=== PATIENT | female | born 1940 | race Caucasian/White ===

== ENCOUNTER 2017-02-13 20:46 | Emergency (ER) | payer MEDICARE, OTHER ==
[2017-02-13 21:59] VITALS: BP 146/68
[2017-02-13] MEDS ORDERED: Ciprofloxacin 500 MG Tab PO ONE (22:27)
[2017-02-13] MEDS ORDERED: Phenazopyridine 95 MG Tab PO ONE ×2 (22:28→22:41)
--- NOTE | 2017-02-13 22:36 | EDM.PDOC ---
[id number] UTI [id number] Time Seen by Provider: 02/13/17 22:00 Source of Information: Reports: Patient History Limitations: Reports: No limitations - History of Present Illness INITIAL COMMENTS - FREE TEXT/NARRATIVE: c/o burning with urination. Started 2 days ago. no fever or chills, Hx bladder infection in past. Has tried cranberry juice that helped some but more frequent urination and burnign worse tonight of wanting to cry. - Related Data Allergies/ADRs: Allergies Allergy/AdvReac Type Severity Reaction Status Date / Time ciprofloxacin Allergy Cannot Verified 02/13/17 22:01 Remember hydrocodone Allergy Dizziness Verified 02/13/17 22:01 sulfamethizole Allergy Rash Verified 02/13/17 22:01 sulfamethoxazole Allergy Itching Verified 02/13/17 22:01 [From Bactrim] trimethoprim [From Bactrim] Allergy Itching Verified 02/13/17 22:01 Home Meds: Home Meds Alendronate Sodium [Alendronate] 70 mg PO ASDIRECTED 07/05/14 [History] Aspirin [Ashley Chewable Aspirin] 81 mg PO DAILY 07/05/14 [History] Clopidogrel Bisulfate [Clopidogrel] 75 mg PO DAILY 07/05/14 [History] Calcium Citrate/Vitamin D3 [Calcium Citrate + D] 1 tab PO DAILY 04/10/15 [ History] Multivitamin with Minerals [Multiple Vitamin] 1 tab PO DAILY 04/10/15 [History] Pantoprazole [ProTONIX] 40 mg PO DAILY 04/10/15 [History] Celecoxib 200 mg PO DAILY 05/28/16 [History] Ondansetron [Ondansetron] 4 mg PO Q6HR PRN 07/03/16 [History] traMADol HCl [Tramadol HCl] 50 mg PO Q6HR PRN 07/03/16 [History] Past Medical History HEENT History: Reports: Hard of hearing, Impaired vision, Other (see below) Other HEENT History: wear glasses Cardiovascular History: Reports: Other (see below) Other Cardiovascular History: carotid artery disease Respiratory History: Reports: None Gastrointestinal History: Reports: GERD Genitourinary History: Reports: None TYPING CHECKER History: Reports: None Musculoskeletal History: Reports: Other (see below) Other Musculoskeletal History: Right shoulder pain Neurological History: Reports: None Psychiatric History: Reports: None Endocrine/Metabolic History: Reports: None Hematologic History: Reports: None Immunologic History: Reports: None Oncologic (Cancer) History: Reports: None Dermatologic History: Reports: None - Infectious Disease History Infectious Disease History: Reports: Measles - Past Surgical History Cardiovascular Surgical History: Reports: None GI Surgical History: Reports: None Neurological Surgical History: Reports: None Musculoskeletal Surgical History: Reports: None Social & Family History - Family History Family Medical History: Noncontributory - Tobacco Use Smoking Status *Q: Never Smoker Second Hand Smoke Exposure: No - Caffeine Use Caffeine Use: Reports: Soda, Tea - Recreational Drug Use Recreational Drug Use: No - Living Situation & Occupation Living situation: Reports: with family Occupation: retired ED ROS GENERAL - Review of Systems Review Of Systems: ROS reveals no pertinent complaints other than HPI. ED EXAM, RENAL/ - Physical Exam Exam: See Below Exam Limited By: No limitations General Appearance: alert, no apparent distress, thin Nose: normal inspection Throat/Mouth: Normal inspection Head: atraumatic Respiratory/Chest: no respiratory distress (Female) Exam: Other (suprapubic tenderness with alpation) Back Exam: normal inspection. No: CVA tenderness (L), CVA tenderness (R) Extremities: normal inspection Neurological: alert, oriented Psychiatric: normal affect Skin Exam: Warm, Dry, Intact Course - Vital Signs Last Recorded V/S: Last Vital Signs Temp 97.7 F 02/13/17 21:49 Pulse 77 02/13/17 21:49 Resp 16 02/13/17 21:49 BP 146/68 H 02/13/17 21:49 Pulse Ox 99 02/13/17 21:49 - Orders/Labs/Meds Labs: Laboratory Tests 02/13/17 Range/Units 22:05 Urine Color Light yellow (YELLOW) Urine Appearance Cloudy (CLEAR) Urine pH 7.0 (5.0-9.0) Ur Specific [place] 1.020 (1.005-1.030) Urine Protein 100 H (NEGATIVE) Urine Glucose (UA) Negative (NEGATIVE) Urine Ketones Negative (NEGATIVE) Urine Occult Blood Moderate H (NEGATIVE) Urine Nitrite Negative (NEGATIVE) Urine Bilirubin Negative (NEGATIVE) Urine Urobilinogen 0.2 (0.2-1.0) mg/dL Ur Leukocyte Esterase Moderate H (NEGATIVE) Urine RBC 10-20 H /HPF Urine WBC Packed H (0-5/HPF) /HPF Ur Epithelial Cells Moderate H /HPF Urine Bacteria Many H (0-FEW/HPF) /HPF Meds: Medications Discontinued Medications Generic Name Dose Route Start Last Admin Trade Name Emily PRN Reason Stop Dose Admin Ciprofloxacin 500 mg 02/13/17 22:27 Ciprofloxacin Hcl PO 02/13/17 22:28 ONETIME ONE Nitrofurantoin Macrocrystals 100 mg 02/14/17 22:34 Macrobid PO 02/14/17 22:35 ONETIME ONE Nitrofurantoin Macrocrystals Confirm 02/13/17 22:40 02/13/17 22:46 Macrobid Administered 02/13/17 22:41 Not Given Dose 100 mg .ROUTE .STK-MED ONE Phenazopyridine HCl 190 mg 02/13/17 22:28 02/13/17 22:45 Urinary Pain Relief PO 02/13/17 22:29 190 mg ONETIME ONE Administration Phenazopyridine HCl Confirm 02/13/17 22:41 02/13/17 22:46 Urinary Pain Relief Administered 02/13/17 22:42 Not Given Dose 190 mg .ROUTE .STK-MED ONE Departure - Departure Time of Disposition: 22:30 Disposition: Home, Self-Care 01 Condition: good Clinical Impression: UTI (urinary tract infection) Qualifiers: Urinary tract infection type: acute cystitis Hematuria presence: with hematuria Qualified Code(s): N30.01 - Acute cystitis with hematuria Instructions: Urinary Tract Infection, Adult, [id number] Forms: ED Department Discharge Additional Instructions: macrobid 100mg one twice daily for one week pyridium 190mg one every 8 hours as needed for bladder spasm fluids clinic follow up next week nsooner if worsening symptoms, dizziness fever vomiting
[2017-02-13] MEDS ORDERED: Nitrofurantoin Monohydrate/Macrocrystalline 100 MG Cap ONE (22:40)
[2017-02-13] MEDS ORDERED: Phenazopyridine 95 MG Tab ONE (22:41)
[2017-02-13] MEDS ORDERED: Nitrofurantoin Monohydrate/Macrocrystalline 100 MG Cap PO ONE (22:41)
[2017-02-14] MEDS ORDERED: Nitrofurantoin Monohydrate/Macrocrystalline 100 MG Cap PO ONE (22:34)
== END 2017-02-13 22:50 | disposition home or self-care (01) ==
LOC: DL.ED 20:46
DX: N30.01 Acute cystitis with hematuria (principal); K21.9 Gastro-esophageal reflux disease without esophagitis; Z79.82 Long term (current) use of aspirin; Z79.899 Other long term (current) drug therapy; Z88.1 Allergy status to other antibiotic agents; Z88.2 Allergy status to sulfonamides
CPT/HCPCS: 81001; 99283; A9270

== ENCOUNTER 2017-08-03 14:42 | Emergency (ER) | payer MEDICARE, OTHER ==
--- NOTE | 2017-08-03 16:51 | CT ---
Clinical history: 77-year-old female with head injury (fall). Scan technique: Volume acquisition of data unenhanced CT scan of the head and brain obtained with pat ient lying supine on the Siemens multi slice scanner [place], [place]. All data archived in the PACS system for storage, reformatting and study. Interpretation: Generalized severe but symmetric age-appropriate cerebral cortical atrophy pattern wi th underlying mirror-image normal ventricular system. Multi-infarct ischemic disease chronic and unch anged when compared to [address] scan[address] Uniformly thick bony calvarium without sign of skull fracture, underlying brain contusion or epidural /subdural hematoma. Symmetric clear pneumatization of the paranasal and mastoid sinuses. No supratentorial or posterior fossa mass lesion. Cerebellum and brainstem unremarkable. No sign of acute intracerebral/intraventricular/subarachnoid bleed. CONCLUSION: No sign of skull fracture or closed head injury. 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
--- NOTE | 2017-08-03 17:01 | CT ---
Clinical history: 77-year-old female injured in fall. Scan technique: Volume acquisition of data emergency unenhanced CT scan of the facial bones obtained with patient lying supine on the Siemens multi slice CT scanner [facility]. All data archived in the PACS system for storage, reformatting and study. Interpretation: Asymmetric infraorbital soft tissue swelling on the right. No fractures of the nasal or anterior maxillary spine, orbits, zygomatic arches or facial bones. Temp oral mandibular joints intact. Symmetric clear pneumatization of the frontal, ethmoid, left maxillary and sphenoid sinuses (mild inf lammatory mucoperiosteal thickening maxillary antrum, on the right). Nasal septum is straight midline . Nonedematous nasal turbinates. Symmetric normal dental occlusion. Note: *Dense reactive sclerosis atlantoaxial joint and significant anterolisthesis of the C5 vertebral body with associated evidence of chronic severe C5-6 disc diseas e noted incidentally on the margin of the films. CONCLUSION: No facial bone fractures. C5 anterolisthesis.
--- NOTE | 2017-08-03 17:14 | EDM.PDOC ---
ED HPI GENERAL MEDICAL PROBLEM - General Chief Complaint: Trauma Stated Complaint: FELL, HURT NOSE Time Seen by Provider: 08/03/17 14:54 Source of Information: Reports: Patient, Family, RN, RN Notes Reviewed History Limitations: Reports: No Limitations - History of Present Illness INITIAL COMMENTS - FREE TEXT/NARRATIVE: Patient presents to the ER with c/o fall/injury. She states she lost her balance and fell, trying to catch herself with her left hand, but landed on her nose. The patient was found to be on Plavix so the chart was converted to a trauma chart. The patient denies dizziness, or loc prior to the fall, denies loc after the fall. C/o pain to the left hand, ring finger, as well as her nose. Onset: Today, Sudden Onset Date: 08/03/17 - Related Data Allergies Allergy/AdvReac Type Severity Reaction Status Date / Time ciprofloxacin Allergy Cannot Verified 02/13/17 22:01 Remember hydrocodone Allergy Dizziness Verified 02/13/17 22:01 sulfamethizole Allergy Rash Verified 02/13/17 22:01 sulfamethoxazole Allergy Itching Verified 02/13/17 22:01 [From Bactrim] trimethoprim [From Bactrim] Allergy Itching Verified 02/13/17 22:01 Home Meds: Home Meds Alendronate Sodium [Alendronate] 70 mg PO ASDIRECTED 07/05/14 [History] Aspirin [Ashely Chewable Aspirin] 81 mg PO DAILY 07/05/14 [History] Clopidogrel Bisulfate [Clopidogrel] 75 mg PO DAILY 07/05/14 [History] Calcium Citrate/Vitamin D3 [Calcium Citrate + D] 1 tab PO DAILY 04/10/15 [ History] Multivitamin with Minerals [Multiple Vitamin] 1 tab PO DAILY 04/10/15 [History] Pantoprazole [ProTONIX] 40 mg PO DAILY 04/10/15 [History] Celecoxib 200 mg PO DAILY 05/28/16 [History] Ondansetron [Ondansetron] 4 mg PO Q6HR PRN 07/03/16 [History] traMADol HCl [Tramadol HCl] 50 mg PO Q6HR PRN 07/03/16 [History] Past Medical History HEENT History: Reports: Hard of Hearing, Impaired Vision, Other (See Below) Other HEENT History: wear glasses Cardiovascular History: Reports: Other (See Below) Other Cardiovascular History: carotid artery disease Respiratory History: Reports: None Gastrointestinal History: Reports: GERD Genitourinary History: Reports: None PEDIATRIC SOCIAL WORKER History: Reports: None Musculoskeletal History: Reports: Other (See Below) Other Musculoskeletal History: Right shoulder pain Neurological History: Reports: None Psychiatric History: Reports: None Endocrine/Metabolic History: Reports: None Hematologic History: Reports: None Immunologic History: Reports: None Oncologic (Cancer) History: Reports: None Dermatologic History: Reports: None - Infectious Disease History Infectious Disease History: Reports: Measles - Past Surgical History Cardiovascular Surgical History: Reports: None GI Surgical History: Reports: None Neurological Surgical History: Reports: None Musculoskeletal Surgical History: Reports: None Social & Family History - Family History Family Medical History: Noncontributory - Tobacco Use Smoking Status *Q: Never Smoker Second Hand Smoke Exposure: No - Caffeine Use Caffeine Use: Reports: Soda, Tea - Recreational Drug Use Recreational Drug Use: No - Living Situation & Occupation Living situation: Reports: with Family Occupation: Retired Review of Systems - Review of Systems Review Of Systems: ROS reveals no pertinent complaints other than HPI. ED EXAM, GENERAL - Physical Exam Exam: See Below Exam Limited By: No Limitations General Appearance: Alert, WD/WN, No Apparent Distress Eye Exam: Bilateral Eye: Normal Inspection, PERRL Ears: Normal External Exam, Hearing Grossly Normal Nose: Normal Inspection Throat/Mouth: Normal Inspection, Normal Lips, No Airway Compromise Head: Normocephalic, Facial Swelling, Facial Tenderness Neck: Normal Inspection, Supple, Non-Tender, Full Range of Motion Respiratory/Chest: No Respiratory Distress, Lungs Clear, Normal Breath Sounds, No Accessory Muscle Use, Chest Non-Tender Cardiovascular: Normal Peripheral Pulses, Regular Rate, Rhythm, No Edema, No Gallop, No JVD, No Murmur, No Rub Peripheral Pulses: 2+: Radial (L), Radial (R) GI/Abdominal: Normal Bowel Sounds, Soft, Non-Tender, No Organomegaly, No Distention, No Abnormal Bruit, No Mass (Female) Exam: Deferred Rectal (Female) Exam: Deferred Back Exam: Normal Inspection, Full Range of Motion Extremities: Other (left hand ecchymosis to the lateral dorsal side over the 5th metacarpal, as well as over the proximal 4th finger at the joint. ) Neurological: Alert, Oriented, CN II-XII Intact, Normal Cognition, Normal Gait, Normal Reflexes, No Motor/Sensory Deficits Psychiatric: Normal Affect, Normal Mood Skin Exam: Warm, Dry, Normal Color, No Rash, Other (swelling and ecchymosis over the entire nose with a small abrasion to the top of the nose between the eyes. ) Lymphatic: No Adenopathy ED TRAUMA PROCEDURES - Splinting Left Upper Extremity Splint Site: left hand Pre-Procedure NV Status: Normal Post-Procedure NV Status: Normal Splint Material: Fiberglass Applied & Form Fitted By: Provider, Nurse Provider Post-Splint Application NV Check: NV Status Normal, Good Position Complications: No Course - Radiology Interpretation Free Text/Narrative:: Head CT and Maxillofacial CT: No acute findings Left hand xray: Fracture of the 5th metacarpal and base of the proximal 4th finger. See Rad report Departure - Departure Time of Disposition: 17:09 Disposition: Home, Self-Care 01 Condition: Good Clinical Impression: Contusion of face Qualifiers: Encounter type: initial encounter Qualified Code(s): S00.83XA - Contusion of other part of head, initial encounter Fracture of left hand Qualifiers: Encounter type: initial encounter Fracture type: closed Qualified Code(s): S62.92XA - Unspecified fracture of left wrist and hand, initial encounter for closed fracture - Discharge Information Instructions: Facial or Scalp Contusion, [id number], Metacarpal Fracture, [id number] Referrals: Buzz Gonzalez MD [Primary Care Provider] - Forms: ED Department Discharge Additional Instructions: Wear splint until seen by ortho. Make an appointment with ortho tomorrow. Call [facility] at [phone]. Ask for the orthopedic clinic. Ask to make an appointment with Dr. Mendez. Tell the magazine worker that you were seen in the ER after a fall and you have fractures in your left hand that need to be looked at. Tell him it is currently splinted. Ice to the nose as tolerated. Acetaminophen for pain as directed. Follow up with your primary care facility the end of this week.
--- NOTE | 2017-08-04 09:07 | CR ---
Clinical history: 77-year-old female injured left hand in a fall. Interpretation: 3 views left hand and wrist... abnormal. Acute fractures distal diaphysis fifth metacarpal and base of the proximal phalanx fourth (ring) fing er. 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 No sign of other fracture or dislocation. Wristwatch foreign body.
== END 2017-08-03 17:45 | disposition home or self-care (01) ==
LOC: DL.ED 14:42
DX: S62.92XA Unspecified fracture of left hand, initial encounter for closed fracture (principal); S00.83XA Contusion of other part of head, initial encounter; Z88.8 Allergy status to other drugs, medicaments and biological substances; Z88.2 Allergy status to sulfonamides; Z79.82 Long term (current) use of aspirin; Z79.899 Other long term (current) drug therapy; W19.XXXA Unspecified fall, initial encounter
CPT/HCPCS: 29125; 70450; 70486; 73130-LT; 99284

== ENCOUNTER 2017-10-20 05:43 | Emergency (ER) | payer MEDICARE, OTHER ==
[2017-10-20 06:14] VITALS: BP 141/50
--- NOTE | 2017-10-20 06:24 | EDM.PDOC ---
ED HPI GENERAL MEDICAL PROBLEM - General Chief Complaint: Genitourinary Problem Stated Complaint: BLADDER INFECTION [id number] Time Seen by Provider: 10/20/17 06:15 Source of Information: Reports: Patient History Limitations: Reports: No Limitations - History of Present Illness INITIAL COMMENTS - FREE TEXT/NARRATIVE: C/O increased urinary frequency, pain urgency since yesterday. No fever or chills. Hx recurrent bladder infections Bladder Pain Score (Numeric/FACES): 4 - Related Data Allergies Allergy/AdvReac Type Severity Reaction Status Date / Time ciprofloxacin Allergy Cannot Verified 02/13/17 22:01 Remember hydrocodone Allergy Dizziness Verified 02/13/17 22:01 sulfamethizole Allergy Rash Verified 02/13/17 22:01 sulfamethoxazole Allergy Itching Verified 02/13/17 22:01 [From Bactrim] trimethoprim [From Bactrim] Allergy Itching Verified 02/13/17 22:01 Home Meds: Home Meds Alendronate Sodium [Alendronate] 70 mg PO ASDIRECTED 07/05/14 [History] Aspirin [Ashley Chewable Aspirin] 81 mg PO DAILY 07/05/14 [History] Clopidogrel Bisulfate [Clopidogrel] 75 mg PO DAILY 07/05/14 [History] Calcium Citrate/Vitamin D3 [Calcium Citrate + D] 1 tab PO DAILY 04/10/15 [ History] Multivitamin with Minerals [Multiple Vitamin] 1 tab PO DAILY 04/10/15 [History] Pantoprazole [ProTONIX] 40 mg PO DAILY 04/10/15 [History] Celecoxib 200 mg PO DAILY 05/28/16 [History] Ondansetron [Ondansetron] 4 mg PO Q6HR PRN 07/03/16 [History] traMADol HCl [Tramadol HCl] 50 mg PO Q6HR PRN 07/03/16 [History] Past Medical History HEENT History: Reports: Hard of Hearing, Impaired Vision, Other (See Below) Other HEENT History: wear glasses Cardiovascular History: Reports: Other (See Below) Other Cardiovascular History: carotid artery disease Respiratory History: Reports: None Gastrointestinal History: Reports: GERD Genitourinary History: Reports: UTI, Recurrent 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: Reports: None Musculoskeletal History: Reports: Other (See Below) Other Musculoskeletal History: Right shoulder pain Neurological History: Reports: None Psychiatric History: Reports: None Endocrine/Metabolic History: Reports: None Hematologic History: Reports: None Immunologic History: Reports: None Oncologic (Cancer) History: Reports: None Dermatologic History: Reports: None - Infectious Disease History Infectious Disease History: Reports: Measles - Past Surgical History Cardiovascular Surgical History: Reports: None GI Surgical History: Reports: None Neurological Surgical History: Reports: None Musculoskeletal Surgical History: Reports: None Social & Family History - Family History Family Medical History: Noncontributory - Tobacco Use Smoking Status *Q: Never Smoker Second Hand Smoke Exposure: No - Caffeine Use Caffeine Use: Reports: Coffee - Recreational Drug Use Recreational Drug Use: No - Living Situation & Occupation Living situation: Reports: with Family Occupation: Retired ED ROS GENERAL - Review of Systems Review Of Systems: ROS reveals no pertinent complaints other than HPI. ED EXAM, RENAL/ - Physical Exam Exam: See Below Exam Limited By: No Limitations General Appearance: Alert, No Apparent Distress Eye Exam: Bilateral Eye: EOMI Ears: Normal External Exam Nose: Normal Inspection Throat/Mouth: Normal Inspection Head: Atraumatic, Normocephalic Respiratory/Chest: No Respiratory Distress, Lungs Clear, Normal Breath Sounds Cardiovascular: Regular Rate, Rhythm GI/Abdominal: Normal Bowel Sounds Back Exam: No: CVA Tenderness (L), CVA Tenderness (R) Extremities: Normal Inspection Neurological: Alert, Oriented, CN II-XII Intact, Normal Cognition Psychiatric: Normal Affect, Normal Mood Skin Exam: Warm, Dry, Intact Course - Vital Signs Last Recorded V/S: Last Vital Signs Temp 98.7 F 10/20/17 06:06 Pulse 67 10/20/17 06:06 Resp 18 10/20/17 06:06 BP 141/50 H 10/20/17 06:06 Pulse Ox 98 10/20/17 06:06 - Orders/Labs/Meds Labs: Laboratory Tests 10/20/17 Range/Units 05:50 Urine Color Yellow (YELLOW) Urine Appearance Cloudy (CLEAR) Urine pH 6.0 (5.0-9.0) Ur Specific [place] >= 1.030 (1.005-1.030) Urine Protein >=300 H (NEGATIVE) Urine Glucose (UA) Negative (NEGATIVE) Urine Ketones Negative (NEGATIVE) Urine Occult Blood Large H (NEGATIVE) Urine Nitrite Negative (NEGATIVE) Urine Bilirubin Negative (NEGATIVE) Urine Urobilinogen 0.2 (0.2-1.0) mg/dL Ur Leukocyte Esterase Small H (NEGATIVE) Urine RBC 10-20 H /HPF Urine WBC Semi-packed H (0-5/HPF) /HPF Ur Epithelial Cells Few /HPF Urine Bacteria Moderate H (0-FEW/HPF) /HPF Urine Mucus Rare /LPF Meds: Medications Discontinued Medications Generic Name Dose Route Start Last Admin Trade Name Freq PRN Reason Stop Dose Admin Doxycycline Hyclate 100 mg 10/20/17 06:31 10/20/17 06:40 Vibramycin PO 10/20/17 06:32 100 mg ONETIME ONE Administration Departure - Departure Time of Disposition: 06:24 Disposition: Home, Self-Care 01 Condition: Fair Clinical Impression: UTI, Urinary tract infectious disease - Discharge Information Instructions: Urinary Tract Infection, Adult, [id number] Forms: ED Department Discharge Additional Instructions: fluids doxycycline 100mg one every 12 hous cor 7 days Pyridium 200mg every 8 hours as needed for urinary burning and urgency Follow up in clinic later this week
[2017-10-20] MEDS ORDERED: Doxycycline 100 MG Cap PO ONE (06:31)
== END 2017-10-20 06:43 | disposition home or self-care (01) ==
LOC: DL.ED 05:43
DX: N39.0 Urinary tract infection, site not specified (principal); Z79.899 Other long term (current) drug therapy; Z88.6 Allergy status to analgesic agent; Z88.1 Allergy status to other antibiotic agents; Z79.82 Long term (current) use of aspirin
CPT/HCPCS: 81001; 99283; A9270

== ENCOUNTER 2017-11-28 16:57 | Emergency (ER) | payer MEDICARE, OTHER ==
[2017-11-28] MEDS ORDERED: Diphtheria,Pertussis(Acell),Tetanus Vaccine 0.5 ML SDV IM ONE (17:10)
[2017-11-28] MEDS ORDERED: Lidocaine 1% with EPINEPHrine 1:100,000 20 ML MDV INJECT ONE (17:11)
--- NOTE | 2017-11-28 18:25 | EDM.PDOC ---
Scribed by Ifrah Yarbrough 11/28/17 1824 for Aniceto Carter MD ED HPI GENERAL MEDICAL PROBLEM - General Chief Complaint: Head Injury Stated Complaint: CUT ABOVE EYE [id number] Time Seen by Provider: 11/28/17 17:00 Source of Information: Reports: Patient, RN, RN Notes Reviewed History Limitations: Reports: No Limitations - History of Present Illness INITIAL COMMENTS - FREE TEXT/NARRATIVE: Arrives from home by private vehicle with complaint of ground level fall in your home sustaining a laceration to her left eyebrow when she hit her head on furniture. Denies loss of consciousness,nausea, vomiting or neck pain. Denies any other injury. Patient takes Plavix antiplatelet therapy. Last tetanus vaccine greater than 10 years ago. Onset: Today Location: Reports: Head Quality: Reports: Ache Severity: Moderate Improves with: Reports: None Worsens with: Reports: None Associated Symptoms: Reports: No Other Symptoms - Related Data Allergies Allergy/AdvReac Type Severity Reaction Status Date / Time ciprofloxacin Allergy Cannot Verified 11/28/17 17:32 Remember hydrocodone Allergy Dizziness Verified 11/28/17 17:32 sulfamethizole Allergy Rash Verified 11/28/17 17:32 sulfamethoxazole Allergy Itching Verified 11/28/17 17:32 [From Bactrim] trimethoprim [From Bactrim] Allergy Itching Verified 11/28/17 17:32 Home Meds: Home Meds Alendronate Sodium [Alendronate] 70 mg PO ASDIRECTED 07/05/14 [History] Aspirin [Ashley Chewable Aspirin] 81 mg PO DAILY 07/05/14 [History] Clopidogrel Bisulfate [Clopidogrel] 75 mg PO DAILY 07/05/14 [History] Calcium Citrate/Vitamin D3 [Calcium Citrate + D] 1 tab PO DAILY 04/10/15 [ History] Multivitamin with Minerals [Multiple Vitamin] 1 tab PO DAILY 04/10/15 [History] Pantoprazole [ProTONIX] 40 mg PO DAILY 04/10/15 [History] Celecoxib 200 mg PO DAILY 05/28/16 [History] Ondansetron [Ondansetron] 4 mg PO Q6HR PRN 07/03/16 [History] traMADol HCl [Tramadol HCl] 50 mg PO Q6HR PRN 07/03/16 [History] Past Medical History HEENT History: Reports: Hard of Hearing, Impaired Vision, Other (See Below) Other HEENT History: wear glasses Cardiovascular History: Reports: Other (See Below) Other Cardiovascular History: carotid artery disease Respiratory History: Reports: None Gastrointestinal History: Reports: GERD Genitourinary History: Reports: UTI, Recurrent 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 Musculoskeletal History: Reports: Other (See Below) Other Musculoskeletal History: Right shoulder pain Neurological History: Reports: None Psychiatric History: Reports: None Endocrine/Metabolic History: Reports: None Hematologic History: Reports: None Immunologic History: Reports: None Oncologic (Cancer) History: Reports: None Dermatologic History: Reports: None - Infectious Disease History Infectious Disease History: Reports: Measles - Past Surgical History Cardiovascular Surgical History: Reports: None GI Surgical History: Reports: None Neurological Surgical History: Reports: None Musculoskeletal Surgical History: Reports: None Social & Family History - Family History Family Medical History: Noncontributory - Tobacco Use Smoking Status *Q: Never Smoker Second Hand Smoke Exposure: No - Caffeine Use Caffeine Use: Reports: Coffee - Recreational Drug Use Recreational Drug Use: No - Living Situation & Occupation Living situation: Reports: with Family Occupation: Retired Review of Systems - Review of Systems Review Of Systems: ROS reveals no pertinent complaints other than HPI. ED EXAM, GENERAL - Physical Exam Exam: See Below Exam Limited By: No Limitations General Appearance: Alert, WD/WN, No Apparent Distress Eye Exam: Bilateral Eye: Normal Inspection Ears: Normal External Exam, Normal Canal, Hearing Grossly Normal, Normal TMs Nose: Normal Inspection, Normal Mucosa, No Blood Throat/Mouth: Normal Inspection, Normal Lips, Normal Teeth, Normal Gums, Normal Oropharynx, Normal Voice, No Airway Compromise Head: Normocephalic, Other (2cm linear lac. to depth of subcut. tissue at left lateral elbow, no active bleeding, no FB) Neck: Normal Inspection, Supple, Non-Tender, Full Range of Motion Respiratory/Chest: No Respiratory Distress, Lungs Clear, Normal Breath Sounds, No Accessory Muscle Use, Chest Non-Tender Cardiovascular: Normal Peripheral Pulses, Regular Rate, Rhythm, No Edema, No Gallop, No JVD, No Murmur, No Rub Back Exam: Normal Inspection, Full Range of Motion, NT Extremities: Normal Inspection, Normal Range of Motion, Non-Tender, Normal Capillary Refill, No Pedal Edema Neurological: Alert, Oriented, CN II-XII Intact, Normal Cognition, Normal Gait, Normal Reflexes, No Motor/Sensory Deficits Psychiatric: Normal Affect, Normal Mood ED TRAUMA PROCEDURES - Laceration/Wound Repair Left Lateral Face Lac/Wound Length In cm: 2 (left eyebrow) Appearance: Linear Distal NVT: Neuro & Vascular Intact, No Tendon Injury Anesthetic Type: Local Local Anesthesia - Lidocaine (Xylocaine): 1% with EPI Local Anesthetic Volume: 5cc Skin Prep: Chlorhexidine (Hibiciens), Saline Exploration/Debridement/Repair: Wound Explored, In a Bloodless Field, Explored to Base, Minimal Debridement, Minimally Undermined Closed With: Sutures Suture Size: 4-0 # of Sutures: 6 Suture Type: Nylon, Running Drain Placement: No Sterile Dressing Applied: Nurse Tetanus Status Addressed: Yes Complications: No Course - Vital Signs Last Recorded V/S: See paper trauma chart for VS. - Orders/Labs/Meds Orders: Active Orders 24 hr Category Date Time Status Vaccines to be Administered [RC] PER UNIT ROUTINE Care 11/28/17 17:10 Active Meds: Medications Discontinued Medications Generic Name Dose Route Start Last Admin Trade Name Freq PRN Reason Stop Dose Admin Diphtheria/Tetanus/Acell Pertussis 0.5 ml 11/28/17 17:10 11/28/17 17:52 Adacel IM 11/28/17 17:11 0.5 ml .ONCE ONE Administration Lidocaine/Epinephrine 20 ml 11/28/17 17:11 11/28/17 17:52 Xylocaine 1% With Epinephrine 1:100,000 INJECT 11/28/17 17:12 20 ml ONETIME ONE Administration - Radiology Interpretation Free Text/Narrative:: CT head: No acute findings. See rad report. Departure - Departure Time of Disposition: 18:21 Disposition: Home, Self-Care 01 Condition: Good Clinical Impression: Facial laceration Qualifiers: Encounter type: initial encounter Qualified Code(s): S01.81XA - Laceration without foreign body of other part of head, initial encounter Fall as cause of accidental injury at home as place of occurrence Qualifiers: Encounter type: initial encounter Qualified Code(s): W19.XXXA - Unspecified fall, initial encounter; Y92.009 - Unspecified place in unspecified non- institutional (private) residence as the place of occurrence of the external cause; Y92.009 - Unspecified place in unspecified non-institutional (private) residence as the place of occurrence of the external cause Traumatic hematoma of face Qualifiers: Encounter type: initial encounter Qualified Code(s): S00.83XA - Contusion of other part of head, initial encounter - Discharge Information Instructions: Facial or Scalp Contusion, [id number], Hematoma, [id number], Facial Laceration, [id number] Forms: ED Department Discharge Additional Instructions: Follow up in clinic for suture removal in 7 to 10 days. - My Orders Last 24 Hours: My Active Orders 11/28/17 17:10 Vaccines to be Administered [RC] PER UNIT ROUTINE - Assessment/Plan Last 24 Hours: My Active Orders 11/28/17 17:10 Vaccines to be Administered [RC] PER UNIT ROUTINE I have read and agree with the documentation that has been completed regarding this visit. By signing this record, I attest that the documentation was completed in my physical presence and is an accurate record of the encounter.
== END 2017-11-28 18:44 | disposition home or self-care (01) ==
LOC: DL.ED 16:57
DX: S01.112A Laceration without foreign body of left eyelid and periocular area, initial encounter (principal); K21.9 Gastro-esophageal reflux disease without esophagitis; Z79.82 Long term (current) use of aspirin; Z79.899 Other long term (current) drug therapy; Z79.02 Long term (current) use of antithrombotics/antiplatelets; Z88.1 Allergy status to other antibiotic agents; Z88.2 Allergy status to sulfonamides; Z88.5 Allergy status to narcotic agent; W01.190A Fall on same level from slipping, tripping and stumbling with subsequent striking against furniture, initial encounter; Y92.009 Unspecified place in unspecified non-institutional (private) residence as the place of occurrence of the external cause
CPT/HCPCS: 12011; 70450; 90471; 90715; 99282; 99284

== ENCOUNTER 2017-12-22 06:35 | Emergency (ER) | payer MEDICARE, OTHER ==
[2017-12-22 06:47] VITALS: BP 175/65
--- NOTE | 2017-12-22 07:38 | EDM.PDOC ---
ED HPI GENERAL MEDICAL PROBLEM - General Chief Complaint: ENT Problem Stated Complaint: BY AMBULANCE Time Seen by Provider: 12/22/17 07:15 Source of Information: Reports: Patient History Limitations: Reports: No Limitations - History of Present Illness INITIAL COMMENTS - FREE TEXT/NARRATIVE: This 77 yo female patient reports to the ED due to having a different feeling in the left side of her head this morning. The patient reports she noticed "something moving" on the left side of her face this morning which woke her up. The patient reports when she got out of bed "a long of air pushed her back into bed." The patient reports she feels like something is moving in the side of her head and face. The patient reports she fell earlier this month and got a cut above her left eye. Onset: Today, Sudden Duration: Minutes:, Improving Location: Reports: Head (left temporal), Face (left side of face) Quality: Reports: Dull Severity: Moderate Improves with: Reports: None Worsens with: Reports: None Associated Symptoms: Reports: No Other Symptoms - Related Data Allergies Allergy/AdvReac Type Severity Reaction Status Date / Time ciprofloxacin Allergy Cannot Verified 12/22/17 06:43 Remember hydrocodone Allergy Dizziness Verified 12/22/17 06:43 sulfamethizole Allergy Rash Verified 12/22/17 06:43 sulfamethoxazole Allergy Itching Verified 12/22/17 06:43 [From Bactrim] trimethoprim [From Bactrim] Allergy Itching Verified 12/22/17 06:43 Home Meds: Home Meds Alendronate Sodium [Alendronate] 70 mg PO ASDIRECTED 07/05/14 [History] Aspirin [Ashley Chewable Aspirin] 81 mg PO DAILY 07/05/14 [History] Clopidogrel Bisulfate [Clopidogrel] 75 mg PO DAILY 07/05/14 [History] Calcium Citrate/Vitamin D3 [Calcium Citrate + D] 1 tab PO DAILY 04/10/15 [ History] Multivitamin with Minerals [Multiple Vitamin] 1 tab PO DAILY 04/10/15 [History] Pantoprazole [ProTONIX] 40 mg PO DAILY 04/10/15 [History] Celecoxib 200 mg PO DAILY 05/28/16 [History] Ondansetron [Ondansetron] 4 mg PO Q6HR PRN 07/03/16 [History] traMADol HCl [Tramadol HCl] 50 mg PO Q6HR PRN 07/03/16 [History] Past Medical History HEENT History: Reports: Hard of Hearing, Impaired Vision, Other (See Below) Other HEENT History: wear glasses Cardiovascular History: Reports: Other (See Below) Other Cardiovascular History: carotid artery disease Respiratory History: Reports: None Gastrointestinal History: Reports: GERD Genitourinary History: Reports: UTI, Recurrent 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 Musculoskeletal History: Reports: Other (See Below) Other Musculoskeletal History: Right shoulder pain Neurological History: Reports: None Psychiatric History: Reports: None Endocrine/Metabolic History: Reports: None Hematologic History: Reports: None Immunologic History: Reports: None Oncologic (Cancer) History: Reports: None Dermatologic History: Reports: None - Infectious Disease History Infectious Disease History: Reports: Measles - Past Surgical History Cardiovascular Surgical History: Reports: None GI Surgical History: Reports: None Neurological Surgical History: Reports: None Musculoskeletal Surgical History: Reports: None Social & Family History - Family History Family Medical History: Noncontributory - Tobacco Use Smoking Status *Q: Never Smoker Second Hand Smoke Exposure: No - Caffeine Use Caffeine Use: Reports: None - Recreational Drug Use Recreational Drug Use: No - Living Situation & Occupation Living situation: Reports: with Family Occupation: Retired ED ROS GENERAL - Review of Systems Review Of Systems: ROS reveals no pertinent complaints other than HPI. ED EXAM, DIZZINESS - Physical Exam Exam: See Below Exam Limited By: No Limitations General Appearance: Alert, Moderate Distress Eye Exam: Bilateral Eye: EOMI, Normal Inspection, PERRL Ears: Normal External Exam, Normal Canal, Hearing Grossly Normal, Normal TMs Nose: Normal Inspection, Normal Mucosa, No Blood Throat/Mouth: Normal Inspection, Normal Lips, Normal Teeth, Normal Gums, Normal Oropharynx, Normal Voice, No Airway Compromise Head Exam: Other (healing wound above left eye) Vertigo: short duration Neck: Normal Inspection, Supple, Non-Tender, Full Range of Motion Respiratory/Chest: No Respiratory Distress, Lungs Clear, Normal Breath Sounds, No Accessory Muscle Use, Chest Non-Tender Cardiovascular: Normal Peripheral Pulses, Regular Rate, Rhythm, No Edema, No Gallop, No JVD, No Murmur, No Rub GI/Abdominal: Normal Bowel Sounds, Soft, Non-Tender, No Organomegaly, No Distention, No Abnormal Bruit, No Mass (Female) Exam: Deferred Rectal (Female) Exam: Deferred Neurological: Alert, Normal Mood/Affect, Normal Dorsiflexion, CN II-XII Intact, Normal Plantar Flexion, Normal Gait, Normal Reflexes, No Motor/Sensory Deficits , Oriented x 3 Back Exam: Normal Inspection, Full Range of Motion, NT Extremities: Normal Inspection, Normal Range of Motion, Non-Tender, No Pedal Edema, Normal Capillary Refill Psychiatric: Normal Affect, Anxious Skin Exam: Warm, Dry, Intact, Normal Color, No Rash Course - Vital Signs Last Recorded V/S: Last Vital Signs Temp 36.3 C 12/22/17 06:44 Pulse 76 12/22/17 06:44 Resp 16 12/22/17 06:44 BP 175/65 H 12/22/17 06:44 Pulse Ox 99 12/22/17 06:44 - Orders/Labs/Meds Orders: Active Orders 24 hr Category Date Time Status EKG Documentation Completion [RC] URGENT Care 12/22/17 07:10 Active Head wo Cont [CT] Urgent Exams 12/22/17 07:21 Taken Labs: Laboratory Tests 12/22/17 12/22/17 12/22/17 Range/Units 06:44 07:18 07:18 WBC 7.3 (5.0-10.0) 10^3/uL RBC 4.03 L (4.2-5.4) 10^6/uL Hgb 12.2 (12.0-16.0) g/dL Hct 38.6 (37.0-47.0) % MCV 95.8 (80-100) fL MCH 30.3 (27.0-34.0) pg MCHC 31.6 L (33.0-35.0) g/dL Plt Count 231 (150-450) 10^3/uL Neut % (Auto) 71.2 (42.2-75.2) % Lymph % (Auto) 14.7 L (20.5-50.1) % [place] % (Auto) 8.4 H (2-8) % Eos % (Auto) 4.9 H (1.0-3.0) % Baso % (Auto) 0.8 (0.0-1.0) % Sodium 141 (135-145) mmol/L Potassium 3.8 (3.6-5.0) mmol/L Chloride 108 (101-111) mmol/L Carbon Dioxide 25.0 (21.0-31.0) mmol/L Anion Gap 11.8 BUN 26 H (7-18) mg/dL Creatinine 0.7 (0.6-1.3) mg/dL Est Cr Clr Drug Dosing 51.54 mL/min Estimated GFR (MDRD) > 60 BUN/Creatinine Ratio 37.14 Glucose 100 (74-105) mg/dL Calcium 8.6 (8.4-10.2) mg/dl Total Bilirubin 1.0 (0.2-1.0) mg/dL AST 28 (10-42) IU/L ALT 18 (10-60) IU/L Alkaline Phosphatase 72 (42-121) IU/L Troponin I 0.04 H* (0.00-0.02) ng/ml Total Protein 7.2 (6.7-8.2) g/dl Albumin 4.1 (3.2-5.5) g/dl Globulin 3.1 Albumin/Globulin Ratio 1.32 Urine Color Yellow (YELLOW) Urine Appearance Slightly cloudy (CLEAR) Urine pH 7.0 (5.0-9.0) Ur Specific [place] 1.010 (1.005-1.030) Urine Protein Negative (NEGATIVE) Urine Glucose (UA) Negative (NEGATIVE) Urine Ketones Negative (NEGATIVE) Urine Occult Blood Moderate H (NEGATIVE) Urine Nitrite Negative (NEGATIVE) Urine Bilirubin Negative (NEGATIVE) Urine Urobilinogen 0.2 (0.2-1.0) mg/dL Ur Leukocyte Esterase Trace H (NEGATIVE) Urine RBC 0-5 /HPF Urine WBC 40-50 H (0-5/HPF) /HPF Ur Epithelial Cells Few /HPF Amorphous Sediment Few (0/HPF) /HPF Urine Bacteria Moderate H (0-FEW/HPF) /HPF Urine Mucus Rare /LPF Meds: Medications Discontinued Medications Generic Name Dose Route Start Last Admin Trade Name Freq PRN Reason Stop Dose Admin Meclizine HCl 12.5 mg 12/22/17 08:00 Antivert PO 12/22/17 08:01 ONETIME ONE Departure - Departure Time of Disposition: 08:07 Disposition: Home, Self-Care 01 Condition: Fair Clinical Impression: UTI (urinary tract infection) Qualifiers: Urinary tract infection type: acute cystitis Hematuria presence: with hematuria Qualified Code(s): N30.01 - Acute cystitis with hematuria BPPV (benign paroxysmal positional vertigo) Qualifiers: Laterality: left Qualified Code(s): H81.12 - Benign paroxysmal vertigo, left ear - Discharge Information Instructions: Benign Positional Vertigo, Urinary Tract Infection, Adult, Easy- to-Read Forms: ED Department Discharge Care Plan Goals: The patient was advised of the examination, lab, EKG and CT results during the visit. The patient was given an oral dose of Antivert while in the ED. The patient was discharged with a script for Keflex (500 mg) to take 1 by mouth 3 times per day for 7 days and Meclizine (12.5 mg) #10 to take 1 by mouth up to 3 times per day as needed. If the patient has any additional symptoms or concerns , the patient should follow-up with her primary care facility or return to the emergency department. - My Orders Last 24 Hours: My Active Orders 12/22/17 07:10 EKG Documentation Completion [RC] URGENT 12/22/17 07:21 Head wo Cont [CT] Urgent - Assessment/Plan Last 24 Hours: My Active Orders 12/22/17 07:10 EKG Documentation Completion [RC] URGENT 12/22/17 07:21 Head wo Cont [CT] Urgent
[2017-12-22 07:45] LABS: CHLORIDE,CL 108 mmol/L (101-111); SODIUM,NA 141 mmol/L (135-145)
[2017-12-22] MEDS: Meclizine 12.5 MG Tab PO ONE (08:03)
== END 2017-12-22 08:32 | disposition home or self-care (01) ==
LOC: DL.ED 06:35
DX: H81.12 Benign paroxysmal vertigo, left ear (principal); N30.01 Acute cystitis with hematuria; Z88.1 Allergy status to other antibiotic agents; Z88.5 Allergy status to narcotic agent; Z88.8 Allergy status to other drugs, medicaments and biological substances; Z79.82 Long term (current) use of aspirin; Z79.899 Other long term (current) drug therapy
CPT/HCPCS: 36415; 70450; 80053; 81001; 84484; 85025; 93005; 93010; 99285; A9270

== ENCOUNTER 2018-01-15 21:08 | Emergency (ER) | payer MEDICARE, OTHER ==
[2018-01-15 21:18] VITALS: BP 146/66
--- NOTE | 2018-01-15 21:20 | EDM.PDOC ---
ED HPI GENERAL MEDICAL PROBLEM - General Chief Complaint: Laceration Stated Complaint: CUT BLEADING Time Seen by Provider: 01/15/18 21:16 Source of Information: Reports: Patient History Limitations: Reports: No Limitations - History of Present Illness INITIAL COMMENTS - FREE TEXT/NARRATIVE: son states pt tripped on leg of chair fell forward hit forehead on cabinet with ??LOC but no vomiting. pt takes plavix. pt not sure but recall falling. - Related Data Allergies Allergy/AdvReac Type Severity Reaction Status Date / Time ciprofloxacin Allergy Cannot Verified 01/15/18 21:15 Remember hydrocodone Allergy Dizziness Verified 01/15/18 21:15 sulfamethizole Allergy Rash Verified 01/15/18 21:15 sulfamethoxazole Allergy Itching Verified 01/15/18 21:15 [From Bactrim] trimethoprim [From Bactrim] Allergy Itching Verified 01/15/18 21:15 Home Meds: Home Meds Alendronate Sodium [Alendronate] 70 mg PO ASDIRECTED 07/05/14 [History] Aspirin [Ashley Chewable Aspirin] 81 mg PO DAILY 07/05/14 [History] Clopidogrel Bisulfate [Clopidogrel] 75 mg PO DAILY 07/05/14 [History] Calcium Citrate/Vitamin D3 [Calcium Citrate + D] 1 tab PO DAILY 04/10/15 [ History] Multivitamin with Minerals [Multiple Vitamin] 1 tab PO DAILY 04/10/15 [History] Pantoprazole [ProTONIX] 40 mg PO DAILY 04/10/15 [History] Celecoxib 200 mg PO DAILY 05/28/16 [History] Ondansetron [Ondansetron] 4 mg PO Q6HR PRN 07/03/16 [History] traMADol HCl [Tramadol HCl] 50 mg PO Q6HR PRN 07/03/16 [History] Past Medical History HEENT History: Reports: Hard of Hearing, Impaired Vision, Other (See Below) Other HEENT History: wear glasses Cardiovascular History: Reports: Other (See Below) Other Cardiovascular History: carotid artery disease Respiratory History: Reports: None Gastrointestinal History: Reports: GERD Genitourinary History: Reports: UTI, Recurrent 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 Musculoskeletal History: Reports: Other (See Below) Other Musculoskeletal History: Right shoulder pain Neurological History: Reports: None Psychiatric History: Reports: None Endocrine/Metabolic History: Reports: None Hematologic History: Reports: None Immunologic History: Reports: None Oncologic (Cancer) History: Reports: None Dermatologic History: Reports: None - Infectious Disease History Infectious Disease History: Reports: Measles - Past Surgical History Cardiovascular Surgical History: Reports: None GI Surgical History: Reports: None Neurological Surgical History: Reports: None Musculoskeletal Surgical History: Reports: None Social & Family History - Family History Family Medical History: Noncontributory - Tobacco Use Smoking Status *Q: Never Smoker Second Hand Smoke Exposure: No - Caffeine Use Caffeine Use: Reports: None - Recreational Drug Use Recreational Drug Use: No - Living Situation & Occupation Living situation: Reports: with Family Occupation: Retired ED ROS GENERAL - Review of Systems Review Of Systems: ROS reveals no pertinent complaints other than HPI. ED EXAM, SKIN/RASH Exam: See Below Exam Limited By: No Limitations General Appearance: Alert, WD/WN, No Apparent Distress Eye Exam: Bilateral Eye: PERRL (pupils ess ER @ 4mm) Ears: Hearing Grossly Normal Throat/Mouth: Normal Voice, No Airway Compromise Head: Other (forehead lac' 2", without O/B) Neck: Non-Tender Respiratory/Chest: No Respiratory Distress Cardiovascular: Regular Rate, Rhythm GI/Abdominal: Soft, Non-Tender Neurological: Alert, Oriented, Normal Cognition, Normal Gait, No Motor/Sensory Deficits Psychiatric: Normal Affect, Normal Mood Skin: Warm, Dry, Normal Color Location, Skin: Head Lymphatic: No Adenopathy ED SKIN PROCEDURES - Laceration/Wound Repair Forehead Lac/Wound length In cm: 7 (forehead @ hair line) Appearance: Subcutaneous, Linear, Clean Anesthetic Type: Local Local Anesthesia - Lidocaine (Xylocaine): 1% Plain Skin Prep: Chlorhexidine (Hibiciens) Exploration/Debridement/Repair: Wound Explored, No Foreign Material Found Closed with: Sutures Suture Size: 4-0 Suture Type: Nylon, Interrupted Sterile Dressing Applied: Nurse Tetanus Status Addressed: Yes Complications: No Course - Vital Signs Last Recorded V/S: Last Vital Signs Temp 37.3 C 01/15/18 21:16 Pulse 78 01/15/18 21:16 Resp 20 01/15/18 21:16 BP 146/66 H 01/15/18 21:16 Pulse Ox 99 01/15/18 21:16 - Orders/Labs/Meds Orders: Active Orders 24 hr Category Date Time Status Vaccines to be Administered [RC] PER UNIT ROUTINE Care 01/15/18 21:16 Active Nitrofurantoin Barnes/Macrocryst [Macrobid] Med 01/15/18 22:57 Once 100 mg PO ONETIME ONE Phenazopyridine [Urinary Pain Relief] Med 01/15/18 22:57 Once 95 mg PO ONETIME ONE Labs: Laboratory Tests 01/15/18 Range/Units 22:33 Urine Color Yellow (YELLOW) Urine Appearance Turbid (CLEAR) Urine pH 5.5 (5.0-9.0) Ur Specific [place] >= 1.030 (1.005-1.030) Urine Protein 100 H (NEGATIVE) Urine Glucose (UA) Negative (NEGATIVE) Urine Ketones Trace H (NEGATIVE) Urine Occult Blood Moderate H (NEGATIVE) Urine Nitrite Positive H (NEGATIVE) Urine Bilirubin Negative (NEGATIVE) Urine Urobilinogen 0.2 (0.2-1.0) mg/dL Ur Leukocyte Esterase Small H (NEGATIVE) Urine RBC 5-10 H /HPF Urine WBC Packed H (0-5/HPF) /HPF Ur Epithelial Cells Moderate H /HPF Urine Bacteria Many H (0-FEW/HPF) /HPF Hyaline Casts Few H /LPF Meds: Medications Discontinued Medications Generic Name Dose Route Start Last Admin Trade Name Freq PRN Reason Stop Dose Admin Diphtheria/Tetanus/Acell Pertussis 0.5 ml 01/15/18 21:15 01/15/18 21:25 Adacel IM 01/15/18 21:16 0.5 ml .ONCE ONE Administration Lidocaine HCl 30 ml 01/15/18 21:15 01/15/18 21:26 Xylocaine-Mpf 1% INJECT 01/15/18 21:16 30 ml ONETIME ONE Administration - Re-Assessments/Exams Free Text/Narrative Re-Assessment/Exam: 01/15/18 22:19 pt also c/o dysuria & urgency 01/15/18 22:58 results discussed with pt who is more lucid now and states she was rushing to watch the hockey game and tripped over. Departure - Departure Time of Disposition: 22:59 Disposition: Home, Self-Care 01 Condition: Good Clinical Impression: Forehead laceration Qualifiers: Encounter type: initial encounter Qualified Code(s): S01.81XA - Laceration without foreign body of other part of head, initial encounter UTI (urinary tract infection) Qualifiers: Urinary tract infection type: acute cystitis Hematuria presence: with hematuria Qualified Code(s): N30.01 - Acute cystitis with hematuria - Discharge Information Instructions: Laceration Care, Adult, [id number] Forms: ED Department Discharge Additional Instructions: 1) keep wound clean dry covered 2) suture removal 7-10 days 3) drink lots of liquids 4) follow up at clinic or recheck if thee is any change or concern rx given; macrobid 100mg bid x 20 pyridium 100mg tid prn x 12 - My Orders Last 24 Hours: My Active Orders 01/15/18 21:16 Vaccines to be Administered [RC] PER UNIT ROUTINE 01/15/18 22:57 Nitrofurantoin Barnes/Macrocryst [Macrobid] 100 mg PO ONETIME ONE Phenazopyridine [Urinary Pain Relief] 95 mg PO ONETIME ONE - Assessment/Plan Last 24 Hours: My Active Orders 01/15/18 21:16 Vaccines to be Administered [RC] PER UNIT ROUTINE 01/15/18 22:57 Nitrofurantoin Barnes/Macrocryst [Macrobid] 100 mg PO ONETIME ONE Phenazopyridine [Urinary Pain Relief] 95 mg PO ONETIME ONE
[2018-01-15] MEDS: Diphtheria,Pertussis(Acell),Tetanus Vaccine 0.5 ML SDV IM ONE (21:25)
[2018-01-15] MEDS: Lidocaine 1% 30 ML SDV INJECT ONE (21:26)
[2018-01-15] MEDS: Nitrofurantoin Monohydrate/Macrocrystalline 100 MG Cap PO ONE (23:04)
[2018-01-15] MEDS: Phenazopyridine 95 MG Tab PO ONE (23:04)
== END 2018-01-15 23:11 | disposition home or self-care (01) ==
LOC: DL.ED 21:08
DX: S01.81XA Laceration without foreign body of other part of head, initial encounter (principal); N39.0 Urinary tract infection, site not specified; Z23 Encounter for immunization; K21.9 Gastro-esophageal reflux disease without esophagitis; Z79.82 Long term (current) use of aspirin; Z79.899 Other long term (current) drug therapy; Z88.1 Allergy status to other antibiotic agents; Z88.2 Allergy status to sulfonamides; Z88.5 Allergy status to narcotic agent; W01.190A Fall on same level from slipping, tripping and stumbling with subsequent striking against furniture, initial encounter
CPT/HCPCS: 12014; 70450; 81001; 90471; 90715; 99283; 99284; A9270

== ENCOUNTER 2018-01-22 18:22 | Emergency (ER) | payer MEDICARE, OTHER ==
[2018-01-22] MEDS ORDERED: Loperamide 2 MG Cap PO ONE (19:01)
--- NOTE | 2018-01-22 19:05 | EDM.PDOC ---
ED HPI GENERAL MEDICAL PROBLEM - General Chief Complaint: Gastrointestinal Problem Stated Complaint: INFECTION Time Seen by Provider: 01/22/18 19:02 Source of Information: Reports: Patient History Limitations: Reports: No Limitations - History of Present Illness INITIAL COMMENTS - FREE TEXT/NARRATIVE: woke up this AM started having diarrhoea mild abd cramps but not too bad. also being Tx for UTI and also had stitches placed last week. - Related Data Allergies Allergy/AdvReac Type Severity Reaction Status Date / Time ciprofloxacin Allergy Cannot Verified 01/15/18 21:15 Remember hydrocodone Allergy Dizziness Verified 01/15/18 21:15 sulfamethizole Allergy Rash Verified 01/15/18 21:15 sulfamethoxazole Allergy Itching Verified 01/15/18 21:15 [From Bactrim] trimethoprim [From Bactrim] Allergy Itching Verified 01/15/18 21:15 Home Meds: Home Meds Alendronate Sodium [Alendronate] 70 mg PO ASDIRECTED 07/05/14 [History] Aspirin [Ashley Chewable Aspirin] 81 mg PO DAILY 07/05/14 [History] Clopidogrel Bisulfate [Clopidogrel] 75 mg PO DAILY 07/05/14 [History] Calcium Citrate/Vitamin D3 [Calcium Citrate + D] 1 tab PO DAILY 04/10/15 [ History] Multivitamin with Minerals [Multiple Vitamin] 1 tab PO DAILY 04/10/15 [History] Pantoprazole [ProTONIX] 40 mg PO DAILY 04/10/15 [History] Ondansetron 4 mg PO Q6HR PRN 07/03/16 [History] Nitrofurantoin [place]/Macrocryst [Nitrofurantoin [place]-MCR] 1 cap PO BID 01/22/18 [ History] Propranolol HCl [Propranolol] 1 tab PO DAILY 01/22/18 [History] Past Medical History HEENT History: Reports: Hard of Hearing, Impaired Vision, Other (See Below) Other HEENT History: wear glasses Cardiovascular History: Reports: Other (See Below) Other Cardiovascular History: carotid artery disease Respiratory History: Reports: None Gastrointestinal History: Reports: GERD Genitourinary History: Reports: UTI, Recurrent 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 Musculoskeletal History: Reports: Other (See Below) Other Musculoskeletal History: Right shoulder pain Neurological History: Reports: None Psychiatric History: Reports: None Endocrine/Metabolic History: Reports: None Hematologic History: Reports: None Immunologic History: Reports: None Oncologic (Cancer) History: Reports: None Dermatologic History: Reports: None - Infectious Disease History Infectious Disease History: Reports: Measles - Past Surgical History Cardiovascular Surgical History: Reports: None GI Surgical History: Reports: None Neurological Surgical History: Reports: None Musculoskeletal Surgical History: Reports: None Social & Family History - Family History Family Medical History: Noncontributory - Tobacco Use Smoking Status *Q: Never Smoker Second Hand Smoke Exposure: No - Caffeine Use Caffeine Use: Reports: None - Recreational Drug Use Recreational Drug Use: No - Living Situation & Occupation Living situation: Reports: with Family Occupation: Retired ED ROS GENERAL - Review of Systems Review Of Systems: ROS reveals no pertinent complaints other than HPI. ED EXAM, GI/ABD - Physical Exam Exam: See Below Exam Limited By: No Limitations General Appearance: Alert, WD/WN, Mild Distress, Other (discomfort) Ears: Hearing Grossly Normal Throat/Mouth: Normal Voice, No Airway Compromise Head: Atraumatic Neck: Non-Tender, Full Range of Motion Respiratory/Chest: No Respiratory Distress Cardiovascular: Regular Rate, Rhythm GI/Abdominal Exam: Soft, Tender, Abnormal Bowel Sounds, Other (mild periumb discomfort with hyper BS). No: Distended, Guarding, Rigid, Rebound Neurological: Alert, Oriented, Normal Cognition, No Motor/Sensory Deficits Psychiatric: Flat Affect Skin Exam: Warm, Dry, Normal Color Lymphatic: No Adenopathy Course - Vital Signs Last Recorded V/S: Last Vital Signs Temp 37.1 C 01/22/18 18:24 Pulse 124 H 01/22/18 18:24 Resp 28 H 01/22/18 18:24 BP Pulse Ox - Orders/Labs/Meds Orders: Active Orders 24 hr Category Date Time Status Sodium Chloride 0.9% [Normal Saline] 1,000 ml Med 01/22/18 19:15 Active IV ASDIRECTED Medication Orders Sodium Chloride (Normal Saline) 1,000 mls @ 150 mls/hr IV ASDIRECTED ADRIANA Last Admin: 01/22/18 19:12 Dose: 150 mls/hr Labs: Laboratory Tests 01/22/18 01/22/18 Range/Units 19:10 19:10 WBC 6.3 (5.0-10.0) 10^3/uL RBC 3.84 L (4.2-5.4) 10^6/uL Hgb 11.7 L (12.0-16.0) g/dL Hct 37.0 (37.0-47.0) % MCV 96.4 (80-100) fL MCH 30.5 (27.0-34.0) pg MCHC 31.6 L (33.0-35.0) g/dL Plt Count 230 (150-450) 10^3/uL Neut % (Auto) 81.3 H (42.2-75.2) % Lymph % (Auto) 7.0 L (20.5-50.1) % [place] % (Auto) 6.2 (2-8) % Eos % (Auto) 5.2 H (1.0-3.0) % Baso % (Auto) 0.3 (0.0-1.0) % Sodium 137 (135-145) mmol/L Potassium 4.0 (3.6-5.0) mmol/L Chloride 104 (101-111) mmol/L Carbon Dioxide 26.0 (21.0-31.0) mmol/L Anion Gap 11.0 BUN 15 (7-18) mg/dL Creatinine 0.6 (0.6-1.3) mg/dL Est Cr Clr Drug Dosing 59.15 mL/min Estimated GFR (MDRD) > 60 BUN/Creatinine Ratio 25.00 Glucose 115 H (74-105) mg/dL Calcium 8.6 (8.4-10.2) mg/dl Total Bilirubin 1.3 H (0.2-1.0) mg/dL AST 31 (10-42) IU/L ALT 15 (10-60) IU/L Alkaline Phosphatase 70 (42-121) IU/L Total Protein 6.9 (6.7-8.2) g/dl Albumin 3.8 (3.2-5.5) g/dl Globulin 3.1 Albumin/Globulin Ratio 1.23 Meds: Medications Generic Name Dose Route Start Last Admin Trade Name Freq PRN Reason Stop Dose Admin Sodium Chloride 1,000 mls @ 150 mls/hr 01/22/18 19:15 01/22/18 19:12 Normal Saline IV 150 mls/hr ASDIRECTED ADRIANA Administration Discontinued Medications Generic Name Dose Route Start Last Admin Trade Name Freq PRN Reason Stop Dose Admin Loperamide HCl 2 mg 01/22/18 19:01 01/22/18 19:12 Imodium PO 01/22/18 19:02 2 mg ONETIME ONE Administration - Re-Assessments/Exams Free Text/Narrative Re-Assessment/Exam: 01/22/18 19:52 results discussed with pt who is feeling good presently, some sutures were removed from healing fore head lac' without s/s infection Departure - Departure Time of Disposition: 20:02 Disposition: Home, Self-Care 01 Condition: Good Clinical Impression: Gastroenteritis, Diarrhea - Discharge Information Instructions: Diarrhea, Adult, [id number] Forms: ED Department Discharge Additional Instructions: 1) see clinic Wednesday for rest of sutures to be removed 2) no solid foods next 48 hours 3) have liquids broth 4) follow up at clinic or recheck if there is any change or concern - My Orders Last 24 Hours: My Active Orders 01/22/18 19:15 Sodium Chloride 0.9% [Normal Saline] 1,000 ml IV ASDIRECTED - Assessment/Plan Last 24 Hours: My Active Orders 01/22/18 19:15 Sodium Chloride 0.9% [Normal Saline] 1,000 ml IV ASDIRECTED
[2018-01-22] MEDS ORDERED: Sodium Chloride 0.9% 1,000 ML IV SCH (19:15)
[2018-01-22 19:38] LABS: CHLORIDE,CL 104 mmol/L (101-111); SODIUM,NA 137 mmol/L (135-145)
[2018-01-22] MEDS ORDERED: Acetaminophen 325 MG Tab PO ONE (20:03)
[2018-01-22 20:06] VITALS: BP 137/59
== END 2018-01-22 20:11 | disposition home or self-care (01) ==
LOC: DL.ED 18:22
DX: K52.9 Noninfective gastroenteritis and colitis, unspecified (principal); Z88.1 Allergy status to other antibiotic agents; Z88.5 Allergy status to narcotic agent; Z88.2 Allergy status to sulfonamides; Z79.82 Long term (current) use of aspirin; Z79.899 Other long term (current) drug therapy
CPT/HCPCS: 36415; 74018; 80053; 85025; 96360; 99284; A9270; J7030; 99283

== ENCOUNTER 2018-02-17 11:12 | Emergency (ER) | payer MEDICARE, OTHER ==
--- NOTE | 2018-02-17 11:39 | EDM.PDOC ---
ED HPI GENERAL MEDICAL PROBLEM - General Chief Complaint: Gastrointestinal Problem Stated Complaint: [id number] LEFT SIDE BACK Time Seen by Provider: 02/17/18 11:35 Source of Information: Reports: Patient, Family, RN, RN Notes Reviewed History Limitations: Reports: No Limitations - History of Present Illness INITIAL COMMENTS - FREE TEXT/NARRATIVE: Pt presents to the ER with her son with c/o left lower back pain/left flank pain. Patient states the pain comes and goes. She states that she has not had a good BM in several days. She states she has had small ruddy about 2-3 days ago. Patient states she has taken stool softeners but no laxatives. Pt denies fever, chills, N/V/D. Patient states she has not had any urinary difficulties. Onset: Gradual - Related Data Allergies Allergy/AdvReac Type Severity Reaction Status Date / Time ciprofloxacin Allergy Cannot Verified 02/17/18 11:17 Remember hydrocodone Allergy Dizziness Verified 02/17/18 11:17 sulfamethizole Allergy Rash Verified 02/17/18 11:17 sulfamethoxazole Allergy Itching Verified 02/17/18 11:17 [From Bactrim] trimethoprim [From Bactrim] Allergy Itching Verified 02/17/18 11:17 Home Meds: Home Meds Alendronate Sodium [Alendronate] 70 mg PO ASDIRECTED 07/05/14 [History] Aspirin [Ashley Chewable Aspirin] 81 mg PO DAILY 07/05/14 [History] Clopidogrel Bisulfate [Clopidogrel] 75 mg PO DAILY 07/05/14 [History] Calcium Citrate/Vitamin D3 [Calcium Citrate + D] 1 tab PO DAILY 04/10/15 [ History] Multivitamin with Minerals [Multiple Vitamin] 1 tab PO DAILY 04/10/15 [History] Pantoprazole [ProTONIX] 40 mg PO DAILY 04/10/15 [History] Ondansetron 4 mg PO Q6HR PRN 07/03/16 [History] Nitrofurantoin [place]/Macrocryst [Nitrofurantoin [place]-MCR] 1 cap PO BID 01/22/18 [ History] Propranolol HCl [Propranolol] 1 tab PO DAILY 01/22/18 [History] Past Medical History HEENT History: Reports: Hard of Hearing, Impaired Vision, Other (See Below) Other HEENT History: wear glasses Cardiovascular History: Reports: Other (See Below) Other Cardiovascular History: carotid artery disease Respiratory History: Reports: None Gastrointestinal History: Reports: GERD Genitourinary History: Reports: UTI, Recurrent 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 Musculoskeletal History: Reports: Other (See Below) Other Musculoskeletal History: Right shoulder pain Neurological History: Reports: None Psychiatric History: Reports: None Endocrine/Metabolic History: Reports: None Hematologic History: Reports: None Immunologic History: Reports: None Oncologic (Cancer) History: Reports: None Dermatologic History: Reports: None - Infectious Disease History Infectious Disease History: Reports: Measles - Past Surgical History Cardiovascular Surgical History: Reports: None GI Surgical History: Reports: None Neurological Surgical History: Reports: None Musculoskeletal Surgical History: Reports: None Social & Family History - Family History Family Medical History: Noncontributory - Tobacco Use Smoking Status *Q: Former Smoker Used Tobacco, but Quit: Yes Month/Year Tobacco Last Used: ? Second Hand Smoke Exposure: No - Caffeine Use Caffeine Use: Reports: None - Recreational Drug Use Recreational Drug Use: No - Living Situation & Occupation Living situation: Reports: with Family Occupation: Retired ED ROS GENERAL - Review of Systems Review Of Systems: ROS reveals no pertinent complaints other than HPI. ED EXAM, GI/ABD - Physical Exam Exam: See Below Exam Limited By: No Limitations General Appearance: Alert, WD/WN, Mild Distress Eyes: Bilateral: Normal Appearance, EOMI Ears: Normal External Exam, Hearing Grossly Normal Nose: Normal Inspection Throat/Mouth: Normal Inspection, Normal Voice, No Airway Compromise Head: Other (linear 2-3cm laceration with glue on it from over 1 month ago, healing well. ) Neck: Normal Inspection, Supple, Non-Tender, Full Range of Motion Respiratory/Chest: No Respiratory Distress, No Accessory Muscle Use, Chest Non- Tender, Decreased Breath Sounds Cardiovascular: Normal Peripheral Pulses, No Edema, No Gallop, No JVD, No Murmur , No Rub, Irregularly Irregular GI/Abdominal Exam: Normal Bowel Sounds, Distended, Tender (Female) Exam: Deferred Rectal (Female) Exam: Deferred Back Exam: Normal Inspection, CVA Tenderness (L), Decreased Range of Motion Extremities: Normal Inspection, Non-Tender, No Pedal Edema, Normal Capillary Refill, Limited Range of Motion Neurological: Alert, Oriented, CN II-XII Intact, Normal Cognition, Normal Gait, Normal Reflexes, No Motor/Sensory Deficits Psychiatric: Normal Affect, Normal Mood Skin Exam: Warm, Dry, Intact, Normal Color, No Rash Lymphatic: No Adenopathy Course - Vital Signs Last Recorded V/S: Last Vital Signs Temp 98.4 F 02/17/18 13:19 Pulse 87 02/17/18 13:19 Resp 20 02/17/18 13:19 BP 162/70 H 02/17/18 13:19 Pulse Ox 98 02/17/18 13:19 - Orders/Labs/Meds Orders: Active Orders 24 hr Category Date Time Status Enema [RC] ASDIRECTED Care 02/17/18 12:55 Active UA W/MICROSCOPIC [URIN] Stat Lab 02/17/18 12:24 Ordered Labs: Laboratory Tests 02/17/18 02/17/18 02/17/18 Range/Units 11:46 11:46 12:24 WBC 4.8 L (5.0-10.0) 10^3/uL RBC 3.73 L (4.2-5.4) 10^6/uL Hgb 11.4 L (12.0-16.0) g/dL Hct 36.0 L (37.0-47.0) % MCV 96.5 (80-100) fL MCH 30.6 (27.0-34.0) pg MCHC 31.7 L (33.0-35.0) g/dL Plt Count 207 (150-450) 10^3/uL Neut % (Auto) 63.8 (42.2-75.2) % Lymph % (Auto) 20.7 (20.5-50.1) % [place] % (Auto) 8.5 H (2-8) % Eos % (Auto) 6.2 H (1.0-3.0) % Baso % (Auto) 0.8 (0.0-1.0) % Sodium 137 (135-145) mmol/L Potassium 4.0 (3.6-5.0) mmol/L Chloride 104 (101-111) mmol/L Carbon Dioxide 25.0 (21.0-31.0) mmol/L Anion Gap 12.0 BUN 20 H (7-18) mg/dL Creatinine 0.6 (0.6-1.3) mg/dL Est Cr Clr Drug Dosing 59.15 mL/min Estimated GFR (MDRD) > 60 BUN/Creatinine Ratio 33.33 Glucose 99 (74-105) mg/dL Calcium 9.5 (8.4-10.2) mg/dl Total Bilirubin 1.2 H (0.2-1.0) mg/dL AST 28 (10-42) IU/L ALT 17 (10-60) IU/L Alkaline Phosphatase 64 (42-121) IU/L Total Protein 7.5 (6.7-8.2) g/dl Albumin 4.4 (3.2-5.5) g/dl Globulin 3.1 Albumin/Globulin Ratio 1.42 Urine Color Yellow (YELLOW) Urine Appearance Clear (CLEAR) Urine pH 5.5 (5.0-9.0) Ur Specific [place] 1.015 (1.005-1.030) Urine Protein Negative (NEGATIVE) Urine Glucose (UA) Negative (NEGATIVE) Urine Ketones Negative (NEGATIVE) Urine Occult Blood Trace-intact H (NEGATIVE) Urine Nitrite Negative (NEGATIVE) Urine Bilirubin Negative (NEGATIVE) Urine Urobilinogen 0.2 (0.2-1.0) mg/dL Ur Leukocyte Esterase Negative (NEGATIVE) Urine RBC 0-5 /HPF Urine WBC 0-5 (0-5/HPF) /HPF Ur Epithelial Cells Few /HPF Urine Bacteria Few (0-FEW/HPF) /HPF Urine Mucus Many H /LPF Meds: Medications Discontinued Medications Generic Name Dose Route Start Last Admin Trade Name Zeferinoq PRN Reason Stop Dose Admin Magnesium Citrate 296 ml 02/17/18 12:12 02/17/18 12:20 Citrate Of Magnesia PO 02/17/18 12:13 296 ml ONETIME ONE Administration - Radiology Interpretation Free Text/Narrative:: Flat and upright xray: Mild obstipation. Abnormal lumbar spine. Otherwise negative plain film exam See rad report Departure - Departure Time of Disposition: 14:09 Disposition: Home, Self-Care 01 Condition: Fair Clinical Impression: Constipation Back pain Qualifiers: Back pain location: low back pain Chronicity: acute Back pain laterality: left Sciatica presence: without sciatica Qualified Code(s): M54.5 - Low back pain - Discharge Information Instructions: Constipation, Adult, [id number] Forms: ED Department Discharge Additional Instructions: Increase fiber intake Continue taking stool softener daily May use Magnesium Citrate over the counter as directed for constipation as needed. Drink plenty of water. Follow up with your primary care facility - My Orders Last 24 Hours: My Active Orders 02/17/18 12:24 UA W/MICROSCOPIC [URIN] Stat 02/17/18 12:55 Enema [RC] ASDIRECTED - Assessment/Plan Last 24 Hours: My Active Orders 02/17/18 12:24 UA W/MICROSCOPIC [URIN] Stat 02/17/18 12:55 Enema [RC] ASDIRECTED
--- NOTE | 2018-02-17 12:07 | CR ---
Clinical history: 78-year-old female abdominal pain. 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 AP pelvis and hips unremarkable. No foreign body, abdominal soft tissue mass lesion or signs of mechanical bowel obstruction (stool co ncentrated in the rectosigmoid colon). No free intraperitoneal air. Lung bases are clear. CONCLUSION: Mild obstipation. Abnormal lumbar spine. Otherwise negative plain film exam.
[2018-02-17 12:12] LABS: CHLORIDE,CL 104 mmol/L (101-111); SODIUM,NA 137 mmol/L (135-145)
[2018-02-17] MEDS: Magnesium Citrate Solution 296 ML Bottle PO ONE (12:20)
[2018-02-17 13:19] VITALS: BP 162/70
== END 2018-02-17 14:15 | disposition home or self-care (01) ==
LOC: DL.ED 11:12
DX: K59.00 Constipation, unspecified (principal); M54.5 Low back pain; Z88.2 Allergy status to sulfonamides; Z88.8 Allergy status to other drugs, medicaments and biological substances; Z88.5 Allergy status to narcotic agent; Z79.82 Long term (current) use of aspirin; Z87.891 Personal history of nicotine dependence
CPT/HCPCS: 36415; 74019; 80053; 81001; 85025; 99284; A9270

== ENCOUNTER 2018-04-01 00:11 | Emergency (ER) | payer MEDICARE, OTHER ==
[2018-04-01 01:32] VITALS: BP 133/62
[2018-04-01] MEDS ORDERED: Nitrofurantoin Monohydrate/Macrocrystalline 100 MG Cap PO ONE (01:43)
[2018-04-01] MEDS ORDERED: Phenazopyridine 95 MG Tab PO ONE (01:43)
--- NOTE | 2018-04-01 01:48 | EDM.PDOC ---
ED HPI GENERAL MEDICAL PROBLEM - General Chief Complaint: Genitourinary Problem Stated Complaint: PAIN WHEN USING BATHROOM [id number] Time Seen by Provider: 04/01/18 01:43 Source of Information: Reports: Patient History Limitations: Reports: No Limitations - History of Present Illness INITIAL COMMENTS - FREE TEXT/NARRATIVE: 1 week h/o recurrent UTI Sx. been trying cranberry juice with '0' - Related Data Allergies Allergy/AdvReac Type Severity Reaction Status Date / Time ciprofloxacin Allergy Cannot Verified 02/17/18 11:17 Remember hydrocodone Allergy Dizziness Verified 02/17/18 11:17 sulfamethizole Allergy Rash Verified 02/17/18 11:17 sulfamethoxazole Allergy Itching Verified 02/17/18 11:17 [From Bactrim] trimethoprim [From Bactrim] Allergy Itching Verified 02/17/18 11:17 Home Meds: Home Meds Alendronate Sodium [Alendronate] 70 mg PO ASDIRECTED 07/05/14 [History] Aspirin [Ashley Chewable Aspirin] 81 mg PO DAILY 07/05/14 [History] Clopidogrel Bisulfate [Clopidogrel] 75 mg PO DAILY 07/05/14 [History] Calcium Citrate/Vitamin D3 [Calcium Citrate + D] 1 tab PO DAILY 04/10/15 [ History] Multivitamin with Minerals [Multiple Vitamin] 1 tab PO DAILY 04/10/15 [History] Pantoprazole [ProTONIX] 40 mg PO DAILY 04/10/15 [History] Propranolol HCl [Propranolol] 1 tab PO DAILY 01/22/18 [History] Past Medical History HEENT History: Reports: Hard of Hearing, Impaired Vision, Other (See Below) Other HEENT History: wear glasses Cardiovascular History: Reports: Other (See Below) Other Cardiovascular History: carotid artery disease Respiratory History: Reports: None Gastrointestinal History: Reports: GERD Genitourinary History: Reports: UTI, Recurrent 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 Musculoskeletal History: Reports: Other (See Below) Other Musculoskeletal History: Right shoulder pain Neurological History: Reports: None Psychiatric History: Reports: None Endocrine/Metabolic History: Reports: None Hematologic History: Reports: None Immunologic History: Reports: None Oncologic (Cancer) History: Reports: None Dermatologic History: Reports: None - Infectious Disease History Infectious Disease History: Reports: Measles - Past Surgical History Cardiovascular Surgical History: Reports: None GI Surgical History: Reports: None Neurological Surgical History: Reports: None Musculoskeletal Surgical History: Reports: None Social & Family History - Family History Family Medical History: Noncontributory - Tobacco Use Smoking Status *Q: Never Smoker - Caffeine Use Caffeine Use: Reports: None - Recreational Drug Use Recreational Drug Use: No - Living Situation & Occupation Living situation: Reports: with Family Occupation: Retired ED ROS GENERAL - Review of Systems Review Of Systems: ROS reveals no pertinent complaints other than HPI. ED EXAM, RENAL/ - Physical Exam Exam: See Below Exam Limited By: No Limitations General Appearance: Alert, WD/WN, Mild Distress, Other (discomfort) Ears: Hearing Grossly Normal Throat/Mouth: Normal Voice, No Airway Compromise Head: Atraumatic Neck: Non-Tender, Full Range of Motion Respiratory/Chest: No Respiratory Distress Cardiovascular: Regular Rate, Rhythm GI/Abdominal: Soft, Other (minimal suprapubic discomfort). No: Distended, Guarding, Rigid, Rebound, Tender Neurological: Alert, Oriented, Normal Cognition, Normal Gait, No Motor/Sensory Deficits Psychiatric: Normal Affect, Normal Mood Skin Exam: Warm, Dry, Normal Color Lymphatic: No Adenopathy Course - Vital Signs Last Recorded V/S: Last Vital Signs Temp 36.9 C 04/01/18 01:22 Pulse 68 04/01/18 01:22 Resp 16 04/01/18 01:22 BP 133/62 04/01/18 01:22 Pulse Ox 99 04/01/18 01:22 - Orders/Labs/Meds Orders: Active Orders 24 hr Category Date Time Status URINALYSIS W/MICROSCOPIC [UA W/MICROSCOPIC] [URIN] Stat Lab 04/01/18 01:[address] [place]/Macrocryst [Macrobid] Med 04/01/18 01:43 Once 100 mg PO ONETIME ONE Phenazopyridine [Urinary Pain Relief] Med 04/01/18 01:43 Once 95 mg PO ONETIME ONE Labs: Laboratory Tests 04/01/18 Range/Units 01:19 Urine Color Yellow (YELLOW) Urine Appearance Turbid (CLEAR) Urine pH 5.5 (5.0-9.0) Ur Specific [place] >= 1.030 (1.005-1.030) Urine Protein >=300 H (NEGATIVE) Urine Glucose (UA) Negative (NEGATIVE) Urine Ketones Trace H (NEGATIVE) Urine Occult Blood Moderate H (NEGATIVE) Urine Nitrite Negative (NEGATIVE) Urine Bilirubin Negative (NEGATIVE) Urine Urobilinogen 0.2 (0.2-1.0) mg/dL Ur Leukocyte Esterase Small H (NEGATIVE) Urine RBC >100 H /HPF Urine WBC >100 H (0-5/HPF) /HPF Ur Epithelial Cells Few /HPF Amorphous Sediment Few (0/HPF) /HPF Urine Bacteria Moderate H (0-FEW/HPF) /HPF Urine Mucus Few H /LPF - Re-Assessments/Exams Free Text/Narrative Re-Assessment/Exam: 04/01/18 01:45 results discussed with pt. Departure - Departure Time of Disposition: 01:46 Disposition: Home, Self-Care 01 Condition: Good Clinical Impression: UTI (urinary tract infection) Qualifiers: Urinary tract infection type: acute cystitis Hematuria presence: with hematuria Qualified Code(s): N30.01 - Acute cystitis with hematuria - Discharge Information Instructions: Urinary Tract Infection, Adult, [id number] Additional Instructions: 1) continue drinking cranberry juice 2) follow up at clinic rx given; macrobid 100mg bid x 20 pyridium 100mg tid prn x 12 - My Orders Last 24 Hours: My Active Orders 04/01/18 01:19 URINALYSIS W/MICROSCOPIC [UA W/MICROSCOPIC] [URIN] Stat 04/01/18 01:[address] [place]/Macrocryst [Macrobid] 100 mg PO ONETIME ONE Phenazopyridine [Urinary Pain Relief] 95 mg PO ONETIME ONE - Assessment/Plan Last 24 Hours: My Active Orders 04/01/18 01:19 URINALYSIS W/MICROSCOPIC [UA W/MICROSCOPIC] [URIN] Stat 04/01/18 01:[address]/Macrocryst [Macrobid] 100 mg PO ONETIME ONE Phenazopyridine [Urinary Pain Relief] 95 mg PO ONETIME ONE
== END 2018-04-01 01:59 | disposition home or self-care (01) ==
LOC: DL.ED 00:11
DX: N30.01 Acute cystitis with hematuria (principal); K21.9 Gastro-esophageal reflux disease without esophagitis; Z88.1 Allergy status to other antibiotic agents; Z88.2 Allergy status to sulfonamides; Z88.5 Allergy status to narcotic agent; Z79.82 Long term (current) use of aspirin; Z79.899 Other long term (current) drug therapy
CPT/HCPCS: 81001; 99283; A9270

== ENCOUNTER 2018-05-14 18:08 | Emergency (ER) | payer MEDICARE, OTHER ==
--- NOTE | 2018-05-14 18:25 | EDM.PDOC ---
ED HPI GENERAL MEDICAL PROBLEM - General Chief Complaint: Head Injury Stated Complaint: FELL AND CUT SELF [id number] Time Seen by Provider: 05/14/18 18:18 Source of Information: Reports: Patient History Limitations: Reports: No Limitations - History of Present Illness INITIAL COMMENTS - FREE TEXT/NARRATIVE: Patient comes emergency department today with her family after a fall at a local restaurant. The patient was at a restaurant when she tripped and fell landing on her right side of her forehead. She did not lose consciousness. She denies head neck or back pain. She denies any change in the functionality of her upper or lower extremities. She denies any paresthesias to her upper or lower extremity. She does complain of a laceration to the right forehead. No chest pain or shortness of breath or difficulty breathing. No abdominal pain nausea or vomiting. No pelvis pain no injury to her lower extremities or left upper extremity. She does have some chronic right upper extremity pain due to his surgery which is somewhat more worse than normal. Right Eye Pain Score (Numeric/FACES): 5 - Related Data Allergies Allergy/AdvReac Type Severity Reaction Status Date / Time ciprofloxacin Allergy Cannot Verified 05/14/18 18:35 Remember hydrocodone Allergy Dizziness Verified 05/14/18 18:35 sulfamethizole Allergy Rash Verified 05/14/18 18:35 sulfamethoxazole Allergy Itching Verified 05/14/18 18:35 [From Bactrim] trimethoprim [From Bactrim] Allergy Itching Verified 05/14/18 18:35 Home Meds: Home Meds Alendronate Sodium [Alendronate] 70 mg PO ASDIRECTED 07/05/14 [History] Aspirin [Ashley Chewable Aspirin] 81 mg PO DAILY 07/05/14 [History] Clopidogrel Bisulfate [Clopidogrel] 75 mg PO DAILY 07/05/14 [History] Calcium Citrate/Vitamin D3 [Calcium Citrate + D] 1 tab PO DAILY 04/10/15 [ History] Multivitamin with Minerals [Multiple Vitamin] 1 tab PO DAILY 04/10/15 [History] Pantoprazole [ProTONIX] 40 mg PO DAILY 04/10/15 [History] Propranolol HCl [Propranolol] 1 tab PO DAILY 01/22/18 [History] Past Medical History HEENT History: Reports: Hard of Hearing, Impaired Vision, Other (See Below) Other HEENT History: wear glasses Cardiovascular History: Reports: Other (See Below) Other Cardiovascular History: carotid artery disease Respiratory History: Reports: None Gastrointestinal History: Reports: GERD Genitourinary History: Reports: UTI, Recurrent 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: Reports: None Musculoskeletal History: Reports: Other (See Below) Other Musculoskeletal History: Right shoulder pain Neurological History: Reports: None Psychiatric History: Reports: None Endocrine/Metabolic History: Reports: None Hematologic History: Reports: None Immunologic History: Reports: None Oncologic (Cancer) History: Reports: None Dermatologic History: Reports: None - Infectious Disease History Infectious Disease History: Reports: Measles - Past Surgical History Cardiovascular Surgical History: Reports: None GI Surgical History: Reports: None Neurological Surgical History: Reports: None Musculoskeletal Surgical History: Reports: None Social & Family History - Family History Family Medical History: Noncontributory - Caffeine Use Caffeine Use: Reports: None - Living Situation & Occupation Living situation: Reports: with Family Occupation: Retired ED ROS GENERAL - Review of Systems Review Of Systems: ROS reveals no pertinent complaints other than HPI. ED EXAM, HEAD INJURY - Physical Exam Exam: See Below Exam Limited By: No Limitations General Appearance: Alert, WD/WN, No Apparent Distress Head: Normocephalic, Active Bleeding (To the laceration on the right upper eyebrow. There is a 2 cm lateral laceration to the right upper eyebrow. The laceration is connected to the glasses and we are unable to remove the glasses.) , Facial Lacerations (2 cm right eyebrow laceration of the lateral aspect of the lateral canthus.), Facial Swelling (Primarily to the right eyebrow rest of the face is atraumatic.). No: Scalp Lacerations, Scalp Swelling, Scalp Abrasions, Scalp Ecchymosis, Scalp Hematoma, Scalp Tenderness, Torres's Sign, Flap, Sinus Tenderness, Raccoon Eyes Eyes: Bilateral Eye: EOMI, PERRL Ears: Normal External Exam, Normal TMs Nose: Normal Inspection, Normal Mucousa, No Blood Throat/Mouth: Normal Inspection, Normal Lips, Normal Teeth, Normal Oropharynx Neck: Non-Tender, Normal Alignment, Normal Inspection Respiratory: No Respiratory Distress, Lungs Clear, Normal Breath Sounds, No Accessory Muscle Use, Chest Non-Tender Cardiovascular: Normal Peripheral Pulses, Regular Rate, Rhythm, No Edema, No Murmur GI/Abdominal Exam: Normal Bowel Sounds, Soft, Non-Tender, No Organomegaly (Female) Exam: Deferred Rectal (Female) Exam: Deferred Back Exam: Normal Inspection, Full Range of Motion. No: CVA Tenderness (L), CVA Tenderness (R), Muscle Spasm, Paraspinal Tenderness, Vertebral Tenderness Extremities: Normal Inspection (Except as documented below.), No Pedal Edema, Normal Capillary Refill, Other (On the right dorsal forearm there is a small skin tear about the size of a dime. She also some tenderness to the right shoulder without any bony deformity crepitus bruising swelling ecchymosis.) Neurologic: No Motor/Sensory Deficits, Alert, Normal Mood/Affect, Oriented x 3 Skin: Normal Color, Warm/Dry - Walnut Coma Score Best Eye Response (Tommy): (4) Open Spontaneously Best Verbal Response (Walnut): (5) Oriented Best Motor Response (Tommy): (6) Obeys Commands ED LACERATION/WOUND & JENNY PROC - Laceration/Wound Repair Right Lateral Forehead Lac/wound length in cm: 2 Appearance: Subcutaneous, Stellate, Irregular Distal NVT: Neuro & Vascular Intact Anesthetic Type: Local Local Anesthesia - Lidocaine (Xylocaine): 1% with EPI Local Anesthetic Volume: 4cc Skin Prep: Chlorhexidine (Hibiciens) Exploration/Debridement/Repair: Wound Explored, In a Bloodless Field, Explored to Base, Wound Margins Revised, Multiple Flaps Aligned Closed with: Sutures Suture Size: other (6-0) # of Sutures: 6 Suture Type: Nylon Tetanus Status Addressed: Yes Complications: No Course - Vital Signs Last Recorded V/S: Last Vital Signs Temp 36.3 C 05/14/18 18:27 Pulse 73 05/14/18 18:27 Resp 18 05/14/18 18:27 BP 152/60 H 05/14/18 18:27 Pulse Ox 100 05/14/18 18:27 - Orders/Labs/Meds Orders: Active Orders 24 hr Category Date Time Status Vaccines to be Administered [RC] PER UNIT ROUTINE Care 05/14/18 18:40 Active Meds: Medications Discontinued Medications Generic Name Dose Route Start Last Admin Trade Name Freq PRN Reason Stop Dose Admin Bacitracin 1 dose 05/14/18 19:30 05/14/18 19:34 Bacitracin Oint 1 Gm TOP 05/14/18 19:31 1 dose ONETIME ONE Administration Diphtheria/Tetanus/Acell Pertussis 0.5 ml 05/14/18 18:40 05/14/18 18:48 Adacel IM 05/14/18 18:41 0.5 ml .ONCE ONE Administration Lidocaine/Epinephrine Confirm 05/14/18 18:12 05/14/18 19:30 Xylocaine 1% With Epinephrine 1:100,000 Administered 05/14/18 18:13 Not Given Dose 20 ml .ROUTE .STK-MED ONE Lidocaine/Epinephrine 20 ml 05/14/18 18:36 05/14/18 18:48 Xylocaine 1% With Epinephrine 1:100,000 INJECT 05/14/18 18:37 20 ml ONETIME ONE Administration - Radiology Interpretation Free Text/Narrative:: CT of the head negative for any acute findings per radiology. CT facial bones negative for acute findings per radiology. X-ray right hum negative for acute findings per radiology. - Re-Assessments/Exams Free Text/Narrative Re-Assessment/Exam: the laceration that is connected to the glasses I am unable to determine if it is just clots that is connected to the glasses or if there is actual in aspect of the skin connected to the frame and the lens of the glasses. I gave the patient the option to either dismantle and break the glasses or 2 anesthetize this area that is stuck to the glasses and excised that area. She chose to have the area anesthetized and removed. 1% lidocaine with epinephrine was used in the laceration of the right eyebrow. This also resolved the active small arterial bleeding to the right eyebrow. An 11 blade was used to dissect and incise the skin that was connected to the lenses. The patient tolerated the procedure well and the bleeding was controlled following the administration of the epinephrine. Departure - Departure Time of Disposition: 19:26 Disposition: Home, Self-Care 01 Clinical Impression: Concussion with no loss of consciousness, Skin tear of right upper extremity Laceration of forehead, right, complicated Qualifiers: Encounter type: initial encounter Qualified Code(s): S01.81XA - Laceration without foreign body of other part of head, initial encounter - Discharge Information Instructions: Skin Tear Care, [id number], Head Injury, Adult, [id number], Laceration Care, Adult, [id number] Referrals: Buzz Gonzalez MD [Primary Care Provider] - Forms: ED Department Discharge Additional Instructions: Cleanse wound twice daily with soap and water. Bacitracin and bandage until healed. Keep covered until healed. RICE to the sore areas. Sutures out in 6 days at the clinic. Tylenol as needed for pain. Return to the ED if new or worsening symptoms. Follow up with primary care as needed. - My Orders Last 24 Hours: My Active Orders 05/14/18 18:40 Vaccines to be Administered [RC] PER UNIT ROUTINE - Assessment/Plan Last 24 Hours: My Active Orders 05/14/18 18:40 Vaccines to be Administered [RC] PER UNIT ROUTINE Assessment:: Fall right forehead laceration 2 cm Right forearm skin tear concussion. anti-coagulation therapy. Plan: Cleanse wound twice daily with soap and water. Bacitracin and bandage until healed. Keep covered until healed. RICE to the sore areas. Sutures out in 6 days at the clinic. Tylenol as needed for pain. Return to the ED if new or worsening symptoms. Follow up with primary care as needed.
[2018-05-14 18:28] VITALS: BP 152/60
[2018-05-14] MEDS ORDERED: Lidocaine 1% with EPINEPHrine 1:100,000 20 ML MDV INJECT ONE (18:36)
[2018-05-14] MEDS ORDERED: Diphtheria,Pertussis(Acell),Tetanus Vaccine 0.5 ML SDV IM ONE (18:40)
[2018-05-14] MEDS: Lidocaine 1% with EPINEPHrine 1:100,000 20 ML MDV ONE ×2 (18:48→19:30)
[2018-05-14] MEDS ORDERED: Bacitracin Oint 1 GM U/D Packet TOP ONE (19:30)
== END 2018-05-14 19:44 | disposition home or self-care (01) ==
LOC: DL.ED 18:08
DX: S01.121A Laceration with foreign body of right eyelid and periocular area, initial encounter (principal); W18.39XA Other fall on same level, initial encounter; Y92.511 Restaurant or cafe as the place of occurrence of the external cause; I25.10 Atherosclerotic heart disease of native coronary artery without angina pectoris; M25.511 Pain in right shoulder; K21.9 Gastro-esophageal reflux disease without esophagitis; H91.90 Unspecified hearing loss, unspecified ear; H54.7 Unspecified visual loss; Z88.1 Allergy status to other antibiotic agents; Z88.2 Allergy status to sulfonamides; Z88.8 Allergy status to other drugs, medicaments and biological substances; Z79.02 Long term (current) use of antithrombotics/antiplatelets; Z79.82 Long term (current) use of aspirin; Z79.899 Other long term (current) drug therapy
CPT/HCPCS: 12001; 12011; 12051; 70450; 70486; 73060-RT; 90471; 90715; 99284

== ENCOUNTER 2018-06-05 08:37 | Emergency (ER) | payer MEDICARE, OTHER ==
[2018-06-05 09:56] VITALS: BP 169/84
--- NOTE | 2018-06-05 18:38 | EDM.PDOC ---
Scribed by Ifrah Yarbrough 06/05/18 1156 for Aniceto Carter MD ED HPI GENERAL MEDICAL PROBLEM - General Chief Complaint: Gastrointestinal Problem Stated Complaint: CONSTIPATION Time Seen by Provider: 06/05/18 10:14 Source of Information: Reports: Patient, RN, RN Notes Reviewed History Limitations: Reports: No Limitations - History of Present Illness INITIAL COMMENTS - FREE TEXT/NARRATIVE: Patient presents to ER with abdominal discomfort complaining she has had no bowel movement for one week. History of constipation. Denies any other complaints. Onset: Gradual Duration: Getting Worse Location: Reports: Abdomen Severity: Moderate Improves with: Reports: None Worsens with: Reports: None Associated Symptoms: Reports: No Other Symptoms - Related Data Allergies Allergy/AdvReac Type Severity Reaction Status Date / Time ciprofloxacin Allergy Cannot Verified 06/05/18 09:56 Remember hydrocodone Allergy Dizziness Verified 06/05/18 09:56 sulfamethizole Allergy Rash Verified 06/05/18 09:56 sulfamethoxazole Allergy Itching Verified 06/05/18 09:56 [From Bactrim] trimethoprim [From Bactrim] Allergy Itching Verified 06/05/18 09:56 Home Meds: Home Meds Alendronate Sodium [Alendronate] 70 mg PO ASDIRECTED 07/05/14 [History] Aspirin [Ashley Chewable Aspirin] 81 mg PO DAILY 07/05/14 [History] Clopidogrel Bisulfate [Clopidogrel] 75 mg PO DAILY 07/05/14 [History] Calcium Citrate/Vitamin D3 [Calcium Citrate + D] 1 tab PO DAILY 04/10/15 [ History] Multivitamin with Minerals [Multiple Vitamin] 1 tab PO DAILY 04/10/15 [History] Pantoprazole [ProTONIX] 40 mg PO DAILY 04/10/15 [History] Propranolol HCl [Propranolol] 1 tab PO DAILY 01/22/18 [History] Past Medical History HEENT History: Reports: Hard of Hearing, Impaired Vision, Other (See Below) Other HEENT History: wear glasses Cardiovascular History: Reports: Other (See Below) Other Cardiovascular History: carotid artery disease Respiratory History: Reports: None Gastrointestinal History: Reports: GERD Genitourinary History: Reports: UTI, Recurrent 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: None Musculoskeletal History: Reports: Other (See Below) Other Musculoskeletal History: Right shoulder pain Neurological History: Reports: None Psychiatric History: Reports: None Endocrine/Metabolic History: Reports: None Hematologic History: Reports: None Immunologic History: Reports: None Oncologic (Cancer) History: Reports: None Dermatologic History: Reports: None - Infectious Disease History Infectious Disease History: Reports: Measles - Past Surgical History Cardiovascular Surgical History: Reports: None GI Surgical History: Reports: None Neurological Surgical History: Reports: None Musculoskeletal Surgical History: Reports: None Social & Family History - Family History Family Medical History: Noncontributory - Tobacco Use Smoking Status *Q: Never Smoker Second Hand Smoke Exposure: No - Caffeine Use Caffeine Use: Reports: None - Recreational Drug Use Recreational Drug Use: No - Living Situation & Occupation Living situation: Reports: with Family Occupation: Retired ED ROS GENERAL - Review of Systems Review Of Systems: ROS reveals no pertinent complaints other than HPI. ED EXAM, GI/ABD - Physical Exam Exam: See Below Exam Limited By: No Limitations General Appearance: Alert, No Apparent Distress, Other (frail elderly female) Nose: Normal Inspection Throat/Mouth: Normal Inspection, Normal Voice, No Airway Compromise Head: Atraumatic, Normocephalic Neck: Normal Inspection Respiratory/Chest: No Respiratory Distress, Lungs Clear, Normal Breath Sounds, No Accessory Muscle Use, Chest Non-Tender Cardiovascular: Regular Rate, Rhythm GI/Abdominal Exam: Normal Bowel Sounds, Soft, Non-Tender, No Distention. No: Guarding, Rigid, Rebound (Female) Exam: Deferred Rectal (Female) Exam: Deferred Back Exam: Normal Inspection Extremities: Normal Inspection Neurological: Alert, Oriented, No Motor/Sensory Deficits Psychiatric: Normal Mood Skin Exam: Warm, Dry, Intact, Normal Color, No Rash Course - Vital Signs Last Recorded V/S: Last Vital Signs Temp 36.3 C 06/05/18 09:52 Pulse 77 06/05/18 09:52 Resp 18 06/05/18 09:52 BP 169/84 H 06/05/18 09:52 Pulse Ox 100 06/05/18 09:52 - Orders/Labs/Meds Orders: Active Orders 24 hr Category Date Time Status Enema [RC] ASDIRECTED Care 06/05/18 11:52 Active Meds: Medications Discontinued Medications Generic Name Dose Route Start Last Admin Trade Name Freq PRN Reason Stop Dose Admin Senna/Docusate Sodium 2 tab 06/05/18 11:53 06/05/18 12:30 Senna Plus PO 06/05/18 11:54 2 tab ONETIME ONE Administration - Radiology Interpretation Free Text/Narrative:: Abd. XR: non-obstructive bowel gas pattern, constipation; see Rad. report. Departure - Departure Time of Disposition: 11:00 Disposition: Home, Self-Care 01 Condition: Good Clinical Impression: Constipation Qualifiers: Constipation type: unspecified constipation type Qualified Code(s): K59.00 - Constipation, unspecified - Discharge Information Instructions: High-Fiber Diet, Constipation, Adult, [id number] Referrals: Buzz Gonzalez MD [Primary Care Provider] - Forms: ED Department Discharge Additional Instructions: Rx: Miralax Use an over the counter stool softener if needed. Follow up in clinic in the next week for recheck if not improved. - My Orders Last 24 Hours: My Active Orders 06/05/18 11:52 Enema [RC] ASDIRECTED - Assessment/Plan Last 24 Hours: My Active Orders 06/05/18 11:52 Enema [RC] ASDIRECTED I have read and agree with the documentation that has been completed regarding this visit. By signing this record, I attest that the documentation was completed in my physical presence and is an accurate record of the encounter.
== END 2018-06-05 15:00 | disposition home or self-care (01) ==
LOC: DL.ED 08:37
DX: K59.00 Constipation, unspecified (principal); Z88.8 Allergy status to other drugs, medicaments and biological substances; Z88.1 Allergy status to other antibiotic agents; Z79.899 Other long term (current) drug therapy; Z87.440 Personal history of urinary (tract) infections
CPT/HCPCS: 74021; 99283; 99284; A9270

== ENCOUNTER 2019-09-02 03:21 | Observation (INO) | payer MEDICARE, OTHER ==
--- NOTE | 2019-09-02 03:30 | EDM.PDOC ---
ED HPI GENERAL MEDICAL PROBLEM - General Chief Complaint: Lower Extremity Injury/Pain Stated Complaint: AMBULANCE Time Seen by Provider: 09/02/19 03:21 Source of Information: Reports: Patient, EMS, Family, RN History Limitations: Reports: Altered Mental Status - History of Present Illness INITIAL COMMENTS - FREE TEXT/NARRATIVE: Ed via [facility] patient reported to have fallen down on to butt approximately 7 pm tonight, Increased pain and difficulty with weight bearing. Reported did not hit head, no loss of consciousness, witnessed fall. Lives at home with sons who assist with cares. Hx dementia. Son reports fall approximately one month ago and had been doing well with therapy. Left Thigh Pain Score (Numeric/FACES): 10 - Related Data Allergies Allergy/AdvReac Type Severity Reaction Status Date / Time ciprofloxacin Allergy Cannot Verified 09/02/19 03:21 Remember hydrocodone Allergy Dizziness Verified 09/02/19 03:21 sulfamethizole Allergy Rash Verified 09/02/19 03:21 sulfamethoxazole Allergy Itching Verified 09/02/19 03:21 [From Bactrim] trimethoprim [From Bactrim] Allergy Itching Verified 09/02/19 03:21 Home Meds: Home Meds Alendronate Sodium [Alendronate] 70 mg PO ASDIRECTED 07/05/14 [History] Aspirin [Ashley Chewable Aspirin] 81 mg PO DAILY 07/05/14 [History] Clopidogrel Bisulfate [Clopidogrel] 75 mg PO DAILY 07/05/14 [History] Calcium Citrate/Vitamin D3 [Calcium Citrate + D] 1 tab PO DAILY 04/10/15 [ History] Multivitamin with Minerals [Multiple Vitamin] 1 tab PO DAILY 04/10/15 [History] Pantoprazole [ProTONIX] 40 mg PO DAILY 04/10/15 [History] Propranolol HCl [Propranolol] 1 tab PO DAILY 01/22/18 [History] Past Medical History HEENT History: Reports: Hard of Hearing, Impaired Vision, Other (See Below) Other HEENT History: wear glasses Cardiovascular History: Reports: CAD Other Cardiovascular History: carotid artery disease Respiratory History: Reports: None Gastrointestinal History: Reports: Chronic Constipation, GERD Genitourinary History: Reports: UTI, Recurrent [employer] WORK[employer] History: Reports: None Musculoskeletal History: Reports: Other (See Below) Other Musculoskeletal History: Right shoulder pain Neurological History: Reports: None Psychiatric History: Reports: None Endocrine/Metabolic History: Reports: None Hematologic History: Reports: None Immunologic History: Reports: None Oncologic (Cancer) History: Reports: None Dermatologic History: Reports: None - Infectious Disease History Infectious Disease History: Reports: Measles - Past Surgical History Cardiovascular Surgical History: Reports: None GI Surgical History: Reports: None Neurological Surgical History: Reports: None Musculoskeletal Surgical History: Reports: None Social & Family History - Family History Family Medical History: Noncontributory - Caffeine Use Caffeine Use: Reports: None - Living Situation & Occupation Living situation: Reports: with Family Occupation: Retired Review of Systems - Review of Systems Review Of Systems: ROS reveals no pertinent complaints other than HPI. ED EXAM, GENERAL - Physical Exam Exam: See Below Exam Limited By: No Limitations General Appearance: Alert, Mild Distress ( with movement) Eye Exam: Bilateral Eye: EOMI Ears: Normal External Exam, Hearing Loss Nose: Normal Inspection Throat/Mouth: Normal Inspection Head: Atraumatic, Normocephalic Neck: Normal Inspection Respiratory/Chest: No Respiratory Distress, Lungs Clear, Normal Breath Sounds Cardiovascular: Normal Peripheral Pulses, Regular Rate, Rhythm GI/Abdominal: Normal Bowel Sounds, Soft, Non-Tender (Female) Exam: Other (gala area red excoriated, incontinent urine with strong odor) Extremities: Limited Range of Motion ( left hip, ), Other (bruising bilateral knees, left, brown bruising mild swelling, purple bruising right medial knee. ) Neurological: Alert, Oriented ( to person, appropriate conversation with son. Recalls fall, unsure of time, initially said few minutes then few hours ago. ), No Motor/Sensory Deficits, Memory Loss Recent Events Psychiatric: Normal Affect, Normal Mood Skin Exam: Warm, Rash (gala area excoriated. ) Course - Vital Signs Last Recorded V/S: Last Vital Signs Temp 99.6 F 09/02/19 03:24 Pulse 95 09/02/19 03:24 Resp 16 09/02/19 03:24 BP 163/95 H 09/02/19 03:24 Pulse Ox 98 09/02/19 03:24 - Orders/Labs/Meds Orders: Active Orders 24 hr Category Date Time Status Knee 1V or 2V Lt [CR] Urgent Exams 09/02/19 03:26 Taken Knee 1V or 2V Rt [CR] Urgent Exams 09/02/19 03:26 Taken Lumbar Spine wo Cont [CT] Urgent Exams 09/02/19 03:33 Taken Pelvis wo Cont [CT] Urgent Exams 09/02/19 03:33 Taken CULTURE URINE [RM] Stat Lab 09/02/19 03:43 Received cefTRIAXone [Rocephin] 1,000 mg Med 09/02/19 05:00 Active Sodium Chloride 0.9% [Normal Saline] 100 ml IV ONETIME Medication Orders Ceftriaxone Sodium 1,000 mg/ (Sodium Chloride) 100 mls @ 200 mls/hr IV ONETIME ONE Stop: 09/02/19 05:29 Labs: Laboratory Tests 09/02/19 09/02/19 09/02/19 Range/Units 03:34 03:34 03:34 WBC 13.9 H (5.0-10.0) 10^3/uL RBC 4.15 L (4.2-5.4) 10^6/uL Hgb 12.6 (12.0-16.0) g/dL Hct 39.5 (37.0-47.0) % MCV 95.2 (80-100) fL MCH 30.4 (27.0-34.0) pg MCHC 31.9 L (33.0-35.0) g/dL Plt Count 230 (150-450) 10^3/uL Neut % (Auto) 85.2 H (42.2-75.2) % Lymph % (Auto) 6.3 L (20.5-50.1) % [place] % (Auto) 6.6 (2-8) % Eos % (Auto) 1.8 (1.0-3.0) % Baso % (Auto) 0.1 (0.0-1.0) % PT 9.9 (9.0-12.0) SEC INR 1.0 (0.9-1.2) Sodium 141 (135-145) mmol/L Potassium 3.7 (3.6-5.0) mmol/L Chloride 103 (101-111) mmol/L Carbon Dioxide 28.0 (21.0-31.0) mmol/L Anion Gap 13.7 BUN 22 H (7-18) mg/dL Creatinine 0.7 (0.6-1.3) mg/dL Est Cr Clr Drug Dosing TNP Estimated GFR (MDRD) > 60 BUN/Creatinine Ratio 31.42 Glucose 136 H (74-105) mg/dL Calcium 9.1 (8.4-10.2) mg/dl Total Bilirubin 1.3 H (0.2-1.0) mg/dL AST 21 (10-42) IU/L ALT 15 (10-60) IU/L Alkaline Phosphatase 91 (42-121) IU/L B-Natriuretic Peptide 222 H (0-100) pg/ml Total Protein 7.4 (6.7-8.2) g/dl Albumin 4.1 (3.2-5.5) g/dl Globulin 3.3 Albumin/Globulin Ratio 1.24 Urine Color (YELLOW) Urine Appearance (CLEAR) Urine pH (5.0-9.0) Ur Specific [place] (1.005-1.030) Urine Protein (NEGATIVE) Urine Glucose (UA) (NEGATIVE) Urine Ketones (NEGATIVE) Urine Occult Blood (NEGATIVE) Urine Nitrite (NEGATIVE) Urine Bilirubin (NEGATIVE) Urine Urobilinogen (0.2-1.0) mg/dL Ur Leukocyte Esterase (NEGATIVE) Urine RBC /HPF Urine WBC (0-5/HPF) /HPF Ur Epithelial Cells (NOT SEEN) /HPF Amorphous Sediment (NOT SEEN) /HPF Urine Bacteria (0-FEW/HPF) /HPF Urine Mucus (NOT SEEN) /LPF 09/02/19 Range/Units 03:43 WBC (5.0-10.0) 10^3/uL RBC (4.2-5.4) 10^6/uL Hgb (12.0-16.0) g/dL Hct (37.0-47.0) % MCV (80-100) fL MCH (27.0-34.0) pg MCHC (33.0-35.0) g/dL Plt Count (150-450) 10^3/uL Neut % (Auto) (42.2-75.2) % Lymph % (Auto) (20.5-50.1) % [place] % (Auto) (2-8) % Eos % (Auto) (1.0-3.0) % Baso % (Auto) (0.0-1.0) % PT (9.0-12.0) SEC INR (0.9-1.2) Sodium (135-145) mmol/L Potassium (3.6-5.0) mmol/L Chloride (101-111) mmol/L Carbon Dioxide (21.0-31.0) mmol/L Anion Gap BUN (7-18) mg/dL Creatinine (0.6-1.3) mg/dL Est Cr Clr Drug Dosing Estimated GFR (MDRD) BUN/Creatinine Ratio Glucose (74-105) mg/dL Calcium (8.4-10.2) mg/dl Total Bilirubin (0.2-1.0) mg/dL AST (10-42) IU/L ALT (10-60) IU/L Alkaline Phosphatase (42-121) IU/L B-Natriuretic Peptide (0-100) pg/ml Total Protein (6.7-8.2) g/dl Albumin (3.2-5.5) g/dl Globulin Albumin/Globulin Ratio Urine Color Light yellow (YELLOW) Urine Appearance Turbid (CLEAR) Urine pH 7.0 (5.0-9.0) Ur Specific [place] 1.025 (1.005-1.030) Urine Protein 30 H (NEGATIVE) Urine Glucose (UA) Negative (NEGATIVE) Urine Ketones Trace H (NEGATIVE) Urine Occult Blood Trace-intact H (NEGATIVE) Urine Nitrite Positive H (NEGATIVE) Urine Bilirubin Negative (NEGATIVE) Urine Urobilinogen 0.2 (0.2-1.0) mg/dL Ur Leukocyte Esterase Moderate H (NEGATIVE) Urine RBC 10-20 H /HPF Urine WBC 75-100 H (0-5/HPF) /HPF Ur Epithelial Cells Few (NOT SEEN) /HPF Amorphous Sediment Many H (NOT SEEN) /HPF Urine Bacteria Many H (0-FEW/HPF) /HPF Urine Mucus Few H (NOT SEEN) /LPF Meds: Medications Generic Name Dose Route Start Last Admin Trade Name Freq PRN Reason Stop Dose Admin Ceftriaxone Sodium 1,000 mg/ 100 mls @ 200 mls/hr 09/02/19 05:00 Sodium Chloride IV 09/02/19 05:29 ONETIME ONE - Radiology Interpretation Free Text/Narrative:: [facility] Final Radiology Report Call: [phone] assistance Online chat: [email or web address] Name: MICHAEL MUNGUIA Age: 79Years F Date: 09/02/2019 SSN: -- : 1940 Study: CT SPINE LUMBAR WO Requesting Physician: ABDIRIZAK JUSTIN Images: [id number] Addl Studies: Provided Clinical History: Contrast: Without Contrast Medium: Contrast Amount: Contrast Method: CONFIDENTIALITY STATEMENT This report is intended only for use by the referring physician, and only in accordance with law. If you received this in error, call [phone]. Page 1 of 1 PROCEDURE INFORMATION: Exam: CT Lumbar Spine Without Contrast Exam date and time: 09/02/2019 3:40 AM Clinical history: 79 years old, female; Other: Fall/pain TECHNIQUE: Imaging protocol: Computed tomography images of the lumbar spine without contrast. Radiation optimization: All CT scans at this facility use at least one of these dose optimization techniques: automated exposure control; mA and/or kV adjustment per patient size (includes targeted exams where dose is matched to clinical indication); or iterative reconstruction. COMPARISON: No relevant prior studies available. FINDINGS: Vertebrae: Scoliosis. Multiple old compression deformities. Acute or recent fracture line inferior endplate of L2. Discs/Spinal canal/Neural foramina: Severe degenerative changes. Soft tissues: Unremarkable. IMPRESSION: Suspect an acute or recent compression deformity involving the inferior endplate of L2. Multiple old compression fractures. Scoliosis and severe degenerative changes. Thank you for allowing us to participate in the care of your patient. Dictated and Authenticated by: Johnny Doran MD 09/02/2019 4:55 AM Central Time ([place] & [place]) [facility] [place] [facility] Final Radiology Report Call: [phone] assistance Online chat: [email or web address] Name: MICHAEL MUNGUIA Age: 79Years F Date: 09/02/2019 SSN: -- : 1940 Study: CT PELVIS WO Requesting Physician: ABDIRIZAK JUSTIN Images: [id number] Addl Studies: Provided Clinical History: Contrast: Without Contrast Medium: Contrast Amount: Contrast Method: CONFIDENTIALITY STATEMENT This report is intended only for use by the referring physician, and only in accordance with law. If you received this in error, call [phone]. Page 1 of 1 PROCEDURE INFORMATION: Exam: CT Pelvis Without Contrast; Skeletal Exam date and time: 09/02/2019 3:40 AM Clinical history: 79 years old, female; Other: Fall/pain mostly complains of left side TECHNIQUE: Imaging protocol: Computed tomography images of the pelvis without contrast. Exam focused on the skeletal structures. Radiation optimization: All CT scans at this facility use at least one of these dose optimization techniques: automated exposure control; mA and/or kV adjustment per patient size (includes targeted exams where dose is matched to clinical indication); or iterative reconstruction. COMPARISON: CR HIP RT 1 VIEW + PELVIS 04/25/2011 9:52 PM FINDINGS: Vasculature: Pectus veins in the suprapubic region. Bones/joints: Old pelvic fracture deformities. No evidence of acute fracture. Mild degenerative changes in the hips and SI joints. Soft tissues: Unremarkable. IMPRESSION: No evidence of acute fracture. Thank you for allowing us to participate in the care of your patient. Dictated and Authenticated by: Johnny Doran MD [facility] Final Radiology Report Call: [phone] assistance Online chat: [email or web address] Name: MICHAEL MUNGUIA Age: 79Years F Date: 09/02/2019 SSN: -- : 1940 Study: XR KNEE 1 OR 2 VIEWS LEFT Requesting Physician: ABDIRIZAK JUSTIN Images: 2 Addl Studies: Provided Clinical History: Contrast: Contrast Medium: Contrast Amount: Contrast Method: CONFIDENTIALITY STATEMENT This report is intended only for use by the referring physician, and only in accordance with law. If you received this in error, call [phone]. Page 1 of 1 PROCEDURE INFORMATION: Exam: XR Left Knee Exam date and time: 09/02/2019 4:06 AM Clinical history: 79 years old, female; Other: Fall/pain TECHNIQUE: Imaging protocol: XR Left knee. Views: 1 or 2 views. COMPARISON: No relevant prior studies available. FINDINGS: Bones/joints: Mild degenerative changes. Small knee joint effusion. No obvious acute fracture but sensitivity is limited. Soft tissues: Unremarkable. IMPRESSION: Mild degenerative change. Knee joint effusion. MRI for persistent symptoms. Thank you for allowing us to participate in the care of your patient. Dictated and Authenticated by: Johnny Doran MD 09/02/2019 4:52 AM Central Time ([place] & [place] Name: MICHAEL MUNGUIA Age: 79Years F Date: 09/02/2019 SSN: -- : 1940 Study: XR KNEE 1 OR 2 VIEWS RIGHT Requesting Physician: ABDIRIZAK JUSTIN Images: 2 Addl Studies: Provided Clinical History: Contrast: Contrast Medium: Contrast Amount: Contrast Method: CONFIDENTIALITY STATEMENT This report is intended only for use by the referring physician, and only in accordance with law. If you received this in error, call [phone]. Page 1 of 1 PROCEDURE INFORMATION: Exam: XR Right Knee Exam date and time: 09/02/2019 4:11 AM Clinical history: 79 years old, female; Other: Fall/pain TECHNIQUE: Imaging protocol: XR Right knee. Views: 1 or 2 views. COMPARISON: No relevant prior studies available. FINDINGS: Bones/joints: Mild degenerative change. No obvious acute fracture. Soft tissues: Unremarkable. IMPRESSION: Mild degenerative changes. Thank you for allowing us to participate in the care of your patient. Dictated and Authenticated by: Johnny Doran MD 09/02/2019 4:53 AM Central Time ([place] & [place]) - Re-Assessments/Exams Free Text/Narrative Re-Assessment/Exam: 09/02/19 05:22 Dr Muir accepting aptient for Observation L2 compression, UTI. fall, pain management Departure - Departure Time of Disposition: 05:24 Disposition: Refer to Observation Condition: Good Clinical Impression: Fall at home Qualifiers: Encounter type: initial encounter Qualified Code(s): W19.XXXA - Unspecified fall, initial encounter; Y92.009 - Unspecified place in unspecified non- institutional (private) residence as the place of occurrence of the external cause UTI (urinary tract infection) Qualifiers: Urinary tract infection type: acute cystitis Hematuria presence: with hematuria Qualified Code(s): N30.01 - Acute cystitis with hematuria Compression fracture of L2 Qualifiers: Encounter type: initial encounter Qualified Code(s): S32.020A - Wedge compression fracture of second lumbar vertebra, initial encounter for closed fracture Dementia Qualifiers: Dementia type: unspecified type Dementia behavioral disturbance: without behavioral disturbance Qualified Code(s): F03.90 - Unspecified dementia without behavioral disturbance - Discharge Information *PRESCRIPTION DRUG MONITORING PROGRAM REVIEWED*: No *COPY OF PRESCRIPTION DRUG MONITORING REPORT IN PATIENT JUD: No Forms: ED Department Discharge - My Orders Last 24 Hours: My Active Orders 09/02/19 03:26 Knee 1V or 2V Lt [CR] Urgent Knee 1V or 2V Rt [CR] Urgent 09/02/19 03:33 Lumbar Spine wo Cont [CT] Urgent Pelvis wo Cont [CT] Urgent 09/02/19 03:43 CULTURE URINE [RM] Stat 09/02/19 05:00 cefTRIAXone [Rocephin] 1,000 mg Sodium Chloride 0.9% [Normal Saline] 100 ml IV ONETIME - Assessment/Plan Last 24 Hours: My Active Orders 09/02/19 03:26 Knee 1V or 2V Lt [CR] Urgent Knee 1V or 2V Rt [CR] Urgent 09/02/19 03:33 Lumbar Spine wo Cont [CT] Urgent Pelvis wo Cont [CT] Urgent 09/02/19 03:43 CULTURE URINE [RM] Stat 09/02/19 05:00 cefTRIAXone [Rocephin] 1,000 mg Sodium Chloride 0.9% [Normal Saline] 100 ml IV ONETIME
[2019-09-02 03:59] LABS: ANION GAP 13.7; CHLORIDE,CL 103 mmol/L (101-111); SODIUM,NA 141 mmol/L (135-145)
[2019-09-02] MEDS ORDERED: Ibuprofen 400 MG Tab PO PRN (06:36)
[2019-09-02] MEDS ORDERED: Acetaminophen 325 MG Tab PO PRN (06:36)
[2019-09-02] MEDS ORDERED: Sodium Chloride 0.9% 10 ML Syringe FLUSH PRN (06:36)
[2019-09-02] MEDS ORDERED: Acetaminophen/HYDROcodone 325-10 MG Tab PO PRN (06:36)
[2019-09-02] MEDS ORDERED: Ondansetron 4 MG Tab.DIS PO PRN (06:36)
[2019-09-02] MEDS ORDERED: Ondansetron 4 MG/2 ML SDV IVPUSH PRN (06:36)
[2019-09-02] MEDS ORDERED: Pantoprazole 40 MG Tab.CR PO ONE (07:00)
[2019-09-02] MEDS ORDERED: CALCIUM CITRATE PO SCH (09:00)
[2019-09-02] MEDS ORDERED: Non-Formulary Medication 1 Each (Multivitamin With Minerals [Multiple Vitamin] 1 TAB) PO SCH (09:00)
[2019-09-02] MEDS ORDERED: VITAMIN D3 PO SCH (09:00)
[2019-09-02] MEDS ORDERED: Propranolol 60 MG Cap.ER PO ONE (09:00)
[2019-09-02] MEDS ORDERED: Propranolol 60 MG Cap.ER PO SCH (09:00)
[2019-09-02] MEDS ORDERED: [UNRECOGNIZED DRUG - OTHER] PO SCH (09:00)
[2019-09-02] MEDS: Clopidogrel 75 MG Tab PO SCH (09:21)
[2019-09-02] MEDS: Aspirin 81 MG Tab.Chew PO SCH (09:22)
[2019-09-02] MEDS ORDERED: OLANZapine 5 MG Tab PO PRN (10:13)
[2019-09-02] MEDS ORDERED: Propranolol 20 MG Tab PO SCH (10:15)
[2019-09-02] MEDS ORDERED: OLANZapine 10 MG Vial IM ONE ×2 (10:15→21:42)
--- NOTE | 2019-09-02 10:23 | PCM.HP ---
H&P History of Present Illness - General Date of Service: 09/02/19 Admit Problem/Dx: Admission Diagnosis/Problem Admission Diagnosis/Problem Compression fracture of L2 lumbar vertebra Source of Information: Old Records, Provider - History of Present Illness Initial Comments - Free Text/Narative: 79-year-old with history of dementia, hypertension, carotid artery disease, gastroesophageal reflux disease. The patient lives with family. She fell last night and was complaining of back pain. Was unable to get up. Was brought in by family. She was complaining of back pain. She has been confused and refusing care, aggressive with nursing. Few hours later she does not appear in pain but has limited movements partly because of poor cooperation with the nursing staff. Left Thigh Pain Score (Numeric/FACES): 5 - Related Data Allergies/Adverse Reactions: Allergies Allergy/AdvReac Type Severity Reaction Status Date / Time ciprofloxacin Allergy Cannot Verified 09/02/19 03:21 Remember hydrocodone Allergy Dizziness Verified 09/02/19 03:21 sulfamethizole Allergy Rash Verified 09/02/19 03:21 sulfamethoxazole Allergy Itching Verified 09/02/19 03:21 [From Bactrim] trimethoprim [From Bactrim] Allergy Itching Verified 09/02/19 03:21 Home Medications: Home Meds Alendronate Sodium [Alendronate] 70 mg PO ASDIRECTED 07/05/14 [History] Aspirin [Ashley Chewable Aspirin] 81 mg PO DAILY 07/05/14 [History] Clopidogrel Bisulfate [Clopidogrel] 75 mg PO DAILY 07/05/14 [History] Calcium Citrate/Vitamin D3 [Calcium Citrate + D] 1 tab PO DAILY 04/10/15 [ History] Multivitamin with Minerals [Multiple Vitamin] 1 tab PO DAILY 04/10/15 [History] Pantoprazole [ProTONIX] 40 mg PO DAILY 04/10/15 [History] Propranolol HCl [Propranolol] 1 tab PO DAILY 01/22/18 [History] Past Medical History HEENT History: Reports: Hard of Hearing, Impaired Vision, Other (See Below) Other HEENT History: wear glasses Cardiovascular History: Reports: CAD Other Cardiovascular History: carotid artery disease Respiratory History: Reports: None Gastrointestinal History: Reports: Chronic Constipation, GERD Genitourinary History: Reports: UTI, Recurrent [employer]IC[employer] History: Reports: None Musculoskeletal History: Reports: Other (See Below) Other Musculoskeletal History: Right shoulder pain Neurological History: Reports: Concussion Psychiatric History: Reports: None Endocrine/Metabolic History: Reports: None Hematologic History: Reports: None Immunologic History: Reports: None Oncologic (Cancer) History: Reports: None Dermatologic History: Reports: None - Infectious Disease History Infectious Disease History: Reports: Measles - Past Surgical History Cardiovascular Surgical History: Reports: None GI Surgical History: Reports: None Neurological Surgical History: Reports: None Musculoskeletal Surgical History: Reports: None Social & Family History - Family History Family Medical History: Noncontributory - Tobacco Use Smoking Status *Q: Never Smoker Second Hand Smoke Exposure: No - Caffeine Use Caffeine Use: Reports: Coffee, Tea - Recreational Drug Use Recreational Drug Use: No - Living Situation & Occupation Living situation: Reports: with Family Occupation: Retired H&P Review of Systems - Review of Systems: Review Of Systems: Unable To Obtain (Limited due to confusion) General: Denies: Fever Cardiovascular: Denies: Chest Pain Gastrointestinal: Denies: Abdominal Pain Genitourinary: Denies: Dysuria Psychiatric: Reports: Confusion, Agitation Exam - Exam Exam: See Below - Vital Signs Vital Signs: Last Vital Signs Temp 36.7 C 09/02/19 08:11 Pulse 86 09/02/19 08:11 Resp 20 09/02/19 08:11 BP 122/50 L 09/02/19 08:11 Pulse Ox 97 09/02/19 08:11 Weight: 53.796 kg - Exam Quality Assessment: Supplemental Oxygen General: Alert. No: Oriented Neck: Supple Lungs: Clear to Auscultation, Normal Respiratory Effort Cardiovascular: Regular Rate, Regular Rhythm Extremities: No Pedal Edema Skin: Warm, Other (Yeasty rash in the groin area) Neuro Extensive - Mental Status: Alert, Disorientation to Person, Disorientation to Place, Other (Agitated, uncooperative, aggressive to staff, appear to move all extremities, not appears in pain). No: Oriented x3 Psychiatric: Agitated - Patient Data Lab Results Last 24 hrs: Laboratory Results - last 24 hr 09/02/19 09/02/19 09/02/19 Range/Units 03:34 03:34 03:34 WBC 13.9 H (5.0-10.0) 10^3/uL RBC 4.15 L (4.2-5.4) 10^6/uL Hgb 12.6 (12.0-16.0) g/dL Hct 39.5 (37.0-47.0) % MCV 95.2 (80-100) fL MCH 30.4 (27.0-34.0) pg MCHC 31.9 L (33.0-35.0) g/dL Plt Count 230 (150-450) 10^3/uL Neut % (Auto) 85.2 H (42.2-75.2) % Lymph % (Auto) 6.3 L (20.5-50.1) % [place] % (Auto) 6.6 (2-8) % Eos % (Auto) 1.8 (1.0-3.0) % Baso % (Auto) 0.1 (0.0-1.0) % PT 9.9 (9.0-12.0) SEC INR 1.0 (0.9-1.2) Sodium 141 (135-145) mmol/L Potassium 3.7 (3.6-5.0) mmol/L Chloride 103 (101-111) mmol/L Carbon Dioxide 28.0 (21.0-31.0) mmol/L Anion Gap 13.7 BUN 22 H (7-18) mg/dL Creatinine 0.7 (0.6-1.3) mg/dL Est Cr Clr Drug Dosing TNP Estimated GFR (MDRD) > 60 BUN/Creatinine Ratio 31.42 Glucose 136 H (74-105) mg/dL Calcium 9.1 (8.4-10.2) mg/dl Total Bilirubin 1.3 H (0.2-1.0) mg/dL AST 21 (10-42) IU/L ALT 15 (10-60) IU/L Alkaline Phosphatase 91 (42-121) IU/L B-Natriuretic Peptide 222 H (0-100) pg/ml Total Protein 7.4 (6.7-8.2) g/dl Albumin 4.1 (3.2-5.5) g/dl Globulin 3.3 Albumin/Globulin Ratio 1.24 Urine Color (YELLOW) Urine Appearance (CLEAR) Urine pH (5.0-9.0) Ur Specific [place] (1.005-1.030) Urine Protein (NEGATIVE) Urine Glucose (UA) (NEGATIVE) Urine Ketones (NEGATIVE) Urine Occult Blood (NEGATIVE) Urine Nitrite (NEGATIVE) Urine Bilirubin (NEGATIVE) Urine Urobilinogen (0.2-1.0) mg/dL Ur Leukocyte Esterase (NEGATIVE) Urine RBC /HPF Urine WBC (0-5/HPF) /HPF Ur Epithelial Cells (NOT SEEN) /HPF Amorphous Sediment (NOT SEEN) /HPF Urine Bacteria (0-FEW/HPF) /HPF Urine Mucus (NOT SEEN) /LPF 09/02/19 Range/Units 03:43 WBC (5.0-10.0) 10^3/uL RBC (4.2-5.4) 10^6/uL Hgb (12.0-16.0) g/dL Hct (37.0-47.0) % MCV (80-100) fL MCH (27.0-34.0) pg MCHC (33.0-35.0) g/dL Plt Count (150-450) 10^3/uL Neut % (Auto) (42.2-75.2) % Lymph % (Auto) (20.5-50.1) % [place] % (Auto) (2-8) % Eos % (Auto) (1.0-3.0) % Baso % (Auto) (0.0-1.0) % PT (9.0-12.0) SEC INR (0.9-1.2) Sodium (135-145) mmol/L Potassium (3.6-5.0) mmol/L Chloride (101-111) mmol/L Carbon Dioxide (21.0-31.0) mmol/L Anion Gap BUN (7-18) mg/dL Creatinine (0.6-1.3) mg/dL Est Cr Clr Drug Dosing Estimated GFR (MDRD) BUN/Creatinine Ratio Glucose (74-105) mg/dL Calcium (8.4-10.2) mg/dl Total Bilirubin (0.2-1.0) mg/dL AST (10-42) IU/L ALT (10-60) IU/L Alkaline Phosphatase (42-121) IU/L B-Natriuretic Peptide (0-100) pg/ml Total Protein (6.7-8.2) g/dl Albumin (3.2-5.5) g/dl Globulin Albumin/Globulin Ratio Urine Color Light yellow (YELLOW) Urine Appearance Turbid (CLEAR) Urine pH 7.0 (5.0-9.0) Ur Specific [place] 1.025 (1.005-1.030) Urine Protein 30 H (NEGATIVE) Urine Glucose (UA) Negative (NEGATIVE) Urine Ketones Trace H (NEGATIVE) Urine Occult Blood Trace-intact H (NEGATIVE) Urine Nitrite Positive H (NEGATIVE) Urine Bilirubin Negative (NEGATIVE) Urine Urobilinogen 0.2 (0.2-1.0) mg/dL Ur Leukocyte Esterase Moderate H (NEGATIVE) Urine RBC 10-20 H /HPF Urine WBC 75-100 H (0-5/HPF) /HPF Ur Epithelial Cells Few (NOT SEEN) /HPF Amorphous Sediment Many H (NOT SEEN) /HPF Urine Bacteria Many H (0-FEW/HPF) /HPF Urine Mucus Few H (NOT SEEN) /LPF Result Diagrams: 09/02/19 03:34 09/02/19 03:34 - Problem List (1) Compression fracture of L2 SNOMED Code(s): 75321292254366215 ICD Code: S32.020A - WEDGE COMPRESSION FRACTURE OF SECOND LUMBAR VERTEBRA, INIT Status: Acute Current Visit: No Qualifiers: Encounter type: initial encounter Qualified Code(s): S32.020A - Wedge compression fracture of second lumbar vertebra, initial encounter for closed fracture (2) Dementia SNOMED Code(s): 44293256 ICD Code: F03.90 - UNSPECIFIED DEMENTIA WITHOUT BEHAVIORAL DISTURBANCE Status: Acute Current Visit: No Qualifiers: Dementia type: unspecified type Dementia behavioral disturbance: without behavioral disturbance Qualified Code(s): F03.90 - Unspecified dementia without behavioral disturbance (3) UTI (urinary tract infection) SNOMED Code(s): 70776329 ICD Code: N39.0 - URINARY TRACT INFECTION, SITE NOT SPECIFIED Status: Acute Current Visit: No Qualifiers: Urinary tract infection type: acute cystitis Hematuria presence: with hematuria Qualified Code(s): N30.01 - Acute cystitis with hematuria Problem List Initiated/Reviewed/Updated: Yes Orders Last 24hrs: Active Orders 24 hr Category Date Time Status Admission Diagnosis [ADT] Stat ADT 09/02/19 05:27 Ordered Admission Status [Patient Status] [ADT] Routine ADT 09/02/19 05:27 Active Antiembolic Devices [RC] PER UNIT ROUTINE Care 09/02/19 06:37 Active Oxygen Therapy [RC] .PRN Care 09/02/19 06:36 Active Peripheral IV Care [RC] . DIRECTED Care 09/02/19 06:37 Active Up With Assistance [RC] ASDIRECTED Care 09/02/19 06:36 Active VTE/DVT Education [RC] PER UNIT ROUTINE Care 09/02/19 06:36 Active Vital Signs [RC] 08,12,16,20,00,04 Care 09/02/19 06:36 Active OT Evaluation and Treatment [CONS] Routine Cons 09/02/19 06:43 Active PT Evaluation and Treatment [CONS] Routine Cons 09/02/19 06:43 Active Regular Diet [DIET] Diet 09/02/19 Breakfast Active Knee 1V or 2V Lt [CR] Urgent Exams 09/02/19 03:26 Taken Knee 1V or 2V Rt [CR] Urgent Exams 09/02/19 03:26 Taken Lumbar Spine wo Cont [CT] Urgent Exams 09/02/19 03:33 Taken Pelvis wo Cont [CT] Urgent Exams 09/02/19 03:33 Taken BASIC METABOLIC PANEL,BMP [CHEM] AM Lab 09/03/19 05:11 Ordered CBC WITH AUTO DIFF [HEME] AM Lab 09/03/19 05:11 Ordered CULTURE URINE [RM] Stat Lab 09/02/19 03:43 Received Acetaminophen [Tylenol] Med 09/02/19 06:36 Active 650 mg PO Q4H PRN Aspirin Med 09/02/19 09:00 Active 81 mg PO DAILY Calcium Carbonate/Vitamin D3 [Calcium Carbonate/Vitamin Med 09/02/19 18:00 Ordered D 1250 MG-200 Unit] 2 tab PO BIDMEALS Clopidogrel [Plavix] Med 09/02/19 09:00 Active 75 mg PO DAILY Heparin Sodium Med 09/02/19 14:00 Active 5,000 units SUBCUT Q8HR Ibuprofen [Motrin] Med 09/02/19 06:36 Active 400 mg PO Q6H PRN Multivitamins/Minerals [Vitamins and Minerals] Med 09/02/19 21:00 Ordered 1 tab PO BEDTIME OLANZapine [ZyPREXA] Med 09/02/19 10:15 Once 5 mg IM ONETIME ONE OLANZapine [ZyPREXA] Med 09/02/19 10:13 Ordered 5 mg PO Q6H PRN Ondansetron [Zofran ODT] Med 09/02/19 06:36 Active 4 mg PO Q4H PRN Ondansetron [Zofran] Med 09/02/19 06:36 Active 4 mg IVPUSH Q4H PRN Pantoprazole [ProTONIX] Med 09/03/19 06:00 Active 40 mg PO ACBREAKFAST Propranolol [Inderal] Med 09/02/19 10:15 Ordered 20 mg PO Q8H Sodium Chloride 0.9% [Saline Flush] Med 09/02/19 06:36 Active 10 ml FLUSH ASDIRECTED PRN cefTRIAXone [Rocephin] 1,000 mg Med 09/03/19 07:00 Active Sodium Chloride 0.9% [Normal Saline] 100 ml IV Q24H Antiembolic Hose [OM.PC] Per Unit Routine Oth 09/02/19 06:37 Ordered Peripheral IV Insertion Adult [OM.PC] Routine Oth 09/02/19 06:36 Ordered Saline Lock Insert [OM.PC] Routine Oth 09/02/19 06:36 Ordered Resuscitation Status Routine Resus Stat 09/02/19 06:36 Ordered Medication Orders Acetaminophen (Tylenol) 650 mg PO Q4H PRN PRN Reason: Pain (Mild 1-3)/fever Aspirin (Aspirin) 81 mg PO DAILY [facility] Last Admin: 09/02/19 09:22 Dose: 81 mg Calcium Carbonate (Calcium Carbonate/Vitamin D 1250 Mg-200 Unit) 2 tab PO BIDMEALS [facility] Clopidogrel Bisulfate (Plavix) 75 mg PO DAILY [facility] Last Admin: 09/02/19 09:21 Dose: 75 mg Heparin Sodium (Porcine) (Heparin Sodium) 5,000 units SUBCUT Q8HR [facility] Ceftriaxone Sodium 1,000 mg/ (Sodium Chloride) 100 mls @ 200 mls/hr IV Q24H [facility] Ibuprofen (Motrin) 400 mg PO Q6H PRN PRN Reason: Pain (moderate 4-6) Multivitamins/Minerals (Vitamins And Minerals) 1 tab PO BEDTIME ADRIANA Olanzapine (Zyprexa) 5 mg PO Q6H PRN PRN Reason: Agitation Olanzapine (Zyprexa) 5 mg IM ONETIME ONE Stop: 09/02/19 10:16 Ondansetron HCl (Zofran Odt) 4 mg PO Q4H PRN PRN Reason: nausea, able to take PO Ondansetron HCl (Zofran) 4 mg IVPUSH Q4H PRN PRN Reason: Nausea/Vomiting Pantoprazole Sodium (Protonix) 40 mg PO ACBREAKFAST ADRIANA Propranolol HCl (Inderal) 20 mg PO Q8H ADRIANA Sodium Chloride (Saline Flush) 10 ml FLUSH ASDIRECTED PRN PRN Reason: Keep Vein Open Assessment/Plan Comment:: 79-year-old who lives with the family presented to the after a fall Back pain L2 compression fracture Try to minimize narcotics Use Tylenol as needed Use Lidoderm patch if the Tylenol is not enough Agitation Likely based on dementia and hospital environment Use Zyprexa when necessary, frequent reorientation Carotid artery disease Continue Plavix Hypertension Continue Inderal Urinary tract infection Urine culture pending Treat with ceftriaxone DVT prophylaxis with subcutaneous heparin
[2019-09-02] MEDS: Heparin Sodium 5,000 Units/ML Vial SUBCUT SCH ×2 (16:04→23:08)
[2019-09-02 16:31] VITALS: BP 136/64; PULSE 75
[2019-09-02] MEDS: Calcium Carbonate/Vitamin D3 1250 MG-200 Unit Tab PO SCH (18:19)
[2019-09-02] MEDS ORDERED: Multivitamins, Therapeutic with Minerals Tab PO SCH (21:00)
[2019-09-03] MEDS ORDERED: OLANZapine 10 MG Vial ONE (05:14)
[2019-09-03] MEDS ORDERED: OLANZapine 10 MG Vial IM ONE (05:15)
[2019-09-03] MEDS: Heparin Sodium 5,000 Units/ML Vial SUBCUT SCH ×2 (05:46→13:28)
[2019-09-03] MEDS ORDERED: Pantoprazole 40 MG Tab.CR PO SCH (06:00)
[2019-09-03] MEDS ORDERED: Propranolol 60 MG Cap.ER PO SCH (09:00)
[2019-09-03] MEDS ORDERED: Cephalexin 500 MG Cap PO ONE (12:00)
[2019-09-03] MEDS ORDERED: Cephalexin 500 MG Cap PO SCH (12:00)
[2019-09-03] MEDS: Calcium Carbonate/Vitamin D3 1250 MG-200 Unit Tab PO SCH (13:27)
[2019-09-03] MEDS: Aspirin 81 MG Tab.Chew PO SCH (13:27)
[2019-09-03] MEDS: Clopidogrel 75 MG Tab PO SCH (13:28)
--- NOTE | 2019-09-03 15:22 | PCM.DCSUM1 ---
Discharge Summary - Hospital Course Free Text/Narrative:: 79-year-old who lives with the family presented to the after a fall Back pain L2 compression fracture pain appears controlled Use Tylenol as needed Agitation, acute encephalopathy due to delirium Likely based on dementia and hospital environment had to use Zyprexa, frequent reorientation should improve in home environment Carotid artery disease Continue Plavix Hypertension Continue Inderal Urinary tract infection Urine culture: gram neg rods and likley staph Treated with ceftriaxone will finish with keflex Diagnosis: Stroke: No - Discharge Data Discharge Date: 09/03/19 Discharge Disposition: Home, Self-Care 01 Condition: Good - Referral to Home Health Primary Care Physician: Cecil Muir MD - Discharge Diagnosis/Problem(s) (1) Compression fracture of L2 SNOMED Code(s): 56584151202350383 ICD Code: S32.020A - WEDGE COMPRESSION FRACTURE OF SECOND LUMBAR VERTEBRA, INIT Status: Acute Current Visit: No Qualifiers: Encounter type: initial encounter Qualified Code(s): S32.020A - Wedge compression fracture of second lumbar vertebra, initial encounter for closed fracture (2) Dementia SNOMED Code(s): 86934993 ICD Code: F03.90 - UNSPECIFIED DEMENTIA WITHOUT BEHAVIORAL DISTURBANCE Status: Acute Current Visit: No Qualifiers: Dementia type: unspecified type Dementia behavioral disturbance: without behavioral disturbance Qualified Code(s): F03.90 - Unspecified dementia without behavioral disturbance (3) UTI (urinary tract infection) SNOMED Code(s): 63104505 ICD Code: N39.0 - URINARY TRACT INFECTION, SITE NOT SPECIFIED Status: Acute Current Visit: No Qualifiers: Urinary tract infection type: acute cystitis Hematuria presence: with hematuria Qualified Code(s): N30.01 - Acute cystitis with hematuria - Patient Summary/Data Consults: Consultations 09/02/19 06:43 OT Evaluation and Treatment [CONS] Routine PT Evaluation and Treatment [CONS] Routine - Patient Instructions Diet: Regular Diet as Tolerated Activity: As Tolerated - Discharge Plan *PRESCRIPTION DRUG MONITORING PROGRAM REVIEWED*: No *COPY OF PRESCRIPTION DRUG MONITORING REPORT IN PATIENT JUD: No Prescriptions/Med Rec: cephALEXin [Keflex 250 MG/5 ML Susp] 500 mg PO BID #10 bottle Home Medications: Home Meds Alendronate Sodium [Alendronate] 70 mg PO ASDIRECTED 07/05/14 [History] Aspirin [Ashley Chewable Aspirin] 81 mg PO DAILY 07/05/14 [History] Clopidogrel Bisulfate [Clopidogrel] 75 mg PO DAILY 07/05/14 [History] Calcium Citrate/Vitamin D3 [Calcium Citrate + D] 1 tab PO DAILY 04/10/15 [ History] Multivitamin with Minerals [Multiple Vitamin] 1 tab PO DAILY 04/10/15 [History] Pantoprazole [ProTONIX] 40 mg PO DAILY 04/10/15 [History] Propranolol HCl [Propranolol] 1 tab PO DAILY 01/22/18 [History] cephALEXin [Keflex 250 MG/5 ML Susp] 500 mg PO BID #10 bottle 09/03/19 [Rx] Referrals: Provider,Unknown [Ordering Only Provider] - (with PMD in 3- 5 days re: UTI) - Discharge Summary/Plan Comment DC Time >30 min.: No - General Info Date of Service: 09/03/19 Subjective Update: agitated at night restless no apparent pain - Review of Systems General: Denies: Fever, Weakness Pulmonary: Denies: Shortness of Breath Cardiovascular: Denies: Chest Pain Gastrointestinal: Denies: Abdominal Pain Neurological: Reports: Confusion Psychiatric: Reports: Agitation - Patient Data Vitals - Most Recent: Last Vital Signs Temp 37.2 C 09/02/19 16:00 Pulse 75 09/02/19 16:00 Resp 20 09/02/19 16:00 BP 136/64 09/02/19 16:00 Pulse Ox 96 09/02/19 16:00 Weight - Most Recent: 53.796 kg KYLIE Results - Last 24 hrs: Microbiology 09/02/19 03:43 Urine Culture - Preliminary Urine, Voided Med Orders - Current: Current Medications Acetaminophen (Tylenol) 650 mg PO Q4H PRN PRN Reason: Pain (Mild 1-3)/fever Aspirin (Aspirin) 81 mg PO DAILY [facility] Last Admin: 09/03/19 13:27 Dose: Not Given Calcium Carbonate (Calcium Carbonate/Vitamin D 1250 Mg-200 Unit) 2 tab PO BIDMEALS [facility] Last Admin: 09/03/19 13:27 Dose: Not Given Cephalexin (Keflex 250 Mg/5 Ml Susp) 500 mg PO BID [facility] Clopidogrel Bisulfate (Plavix) 75 mg PO DAILY [facility] Last Admin: 09/03/19 13:28 Dose: Not Given Heparin Sodium (Porcine) (Heparin Sodium) 5,000 units SUBCUT Q8HR [facility] Last Admin: 09/03/19 13:28 Dose: Not Given Ibuprofen (Motrin) 400 mg PO Q6H PRN PRN Reason: Pain (moderate 4-6) Multivitamins/Minerals (Vitamins And Minerals) 1 tab PO BEDTIME [facility] Last Admin: 09/02/19 22:04 Dose: Not Given Olanzapine (Zyprexa) 5 mg PO Q6H PRN PRN Reason: Agitation Ondansetron HCl (Zofran Odt) 4 mg PO Q4H PRN PRN Reason: nausea, able to take PO Ondansetron HCl (Zofran) 4 mg IVPUSH Q4H PRN PRN Reason: Nausea/Vomiting Pantoprazole Sodium (Protonix) 40 mg PO ACBREAKFAST [facility] Last Admin: 09/03/19 05:46 Dose: Not Given Propranolol HCl (Inderal La) 60 mg PO DAILY [facility] Last Admin: 09/03/19 13:28 Dose: Not Given Sodium Chloride (Saline Flush) 10 ml FLUSH ASDIRECTED PRN PRN Reason: Keep Vein Open Last Admin: 09/02/19 10:48 Dose: 10 ml Discontinued Medications Hydrocodone Bitart/Acetaminophen ([place] 325-10 Mg) 1 tab PO Q4H PRN PRN Reason: Pain (severe 7-10) Cephalexin (Keflex) 500 mg PO Q6HR [facility] Cephalexin (Keflex) 500 mg PO ONETIME ONE Stop: 09/03/19 12:01 Last Admin: 09/03/19 13:28 Dose: Not Given Ceftriaxone Sodium 1,000 mg/ (Sodium Chloride) 100 mls @ 200 mls/hr IV ONETIME ONE Stop: 09/02/19 05:29 Last Infusion: 09/02/19 07:04 Dose: Infused Ceftriaxone Sodium 1,000 mg/ (Sodium Chloride) 100 mls @ 200 mls/hr IV Q24H [facility] Last Admin: 09/03/19 13:28 Dose: Not Given Non-Formulary Medication (Calcium Citrate/Vitamin D3 [Calcium Citrate + D]) 1 tab PO DAILY [facility] Last Admin: 09/02/19 11:09 Dose: Not Given Non-Formulary Medication (Multivitamin With Minerals [Multiple Vitamin]) 1 tab PO DAILY [facility] Last Admin: 09/02/19 11:09 Dose: Not Given Olanzapine (Zyprexa) 5 mg IM ONETIME ONE Stop: 09/02/19 10:16 Last Admin: 09/02/19 10:22 Dose: 5 mg Olanzapine (Zyprexa) 5 mg IM ONETIME ONE Stop: 09/02/19 21:43 Last Admin: 09/02/19 22:35 Dose: 5 mg Olanzapine (Zyprexa) Confirm Administered Dose 10 mg .ROUTE .STK-MED ONE Stop: 09/03/19 05:15 Last Admin: 09/03/19 05:41 Dose: Not Given Olanzapine (Zyprexa) 2.5 mg IM ONETIME ONE Stop: 09/03/19 05:16 Last Admin: 09/03/19 05:20 Dose: 2.5 mg Pantoprazole Sodium (Protonix) 40 mg PO ONETIME ONE Stop: 09/02/19 07:01 Last Admin: 09/02/19 07:53 Dose: 40 mg Propranolol HCl (Inderal La) 60 mg PO DAILY [facility] Last Admin: 09/02/19 11:09 Dose: Not Given Propranolol HCl (Inderal La) 60 mg PO ONETIME ONE Stop: 09/02/19 09:01 Last Admin: 09/02/19 09:23 Dose: 60 mg Propranolol HCl (Inderal) 20 mg PO Q8H [facility] Last Admin: 09/02/19 11:10 Dose: Not Given - Exam General: Reports: Alert. Denies: Oriented Neck: Reports: Supple Lungs: Reports: Clear to Auscultation, Normal Respiratory Effort Cardiovascular: Reports: Regular Rate, Regular Rhythm GI/Abdominal Exam: Normal Bowel Sounds, Soft, Non-Tender Extremities: No Pedal Edema Skin: Reports: Warm, Dry Psy/Mental Status: Reports: Alert, Agitated (episodically)
[2019-09-03] MEDS ORDERED: Cephalexin 250 MG/5 ML Susp 200 ML Bottle PO SCH (21:00)
== END 2019-09-03 15:35 | disposition home or self-care (01) ==
LOC: DL.ED 03:21 → DL.MS 05:27
PROVIDERS: ADMIT Internal Medicine; ATTEND Internal Medicine
DX: S32.020A Wedge compression fracture of second lumbar vertebra, initial encounter for closed fracture (principal); F03.90 Unspecified dementia, unspecified severity, without behavioral disturbance, psychotic disturbance, mood disturbance, and anxiety; N39.0 Urinary tract infection, site not specified; R45.1 Restlessness and agitation; G93.49 Other encephalopathy; R41.0 Disorientation, unspecified; I25.10 Atherosclerotic heart disease of native coronary artery without angina pectoris; I10 Essential (primary) hypertension; K21.9 Gastro-esophageal reflux disease without esophagitis; W19.XXXA Unspecified fall, initial encounter; Z88.1 Allergy status to other antibiotic agents; Z88.5 Allergy status to narcotic agent; Z88.2 Allergy status to sulfonamides; Z79.82 Long term (current) use of aspirin; Z79.02 Long term (current) use of antithrombotics/antiplatelets; Z79.899 Other long term (current) drug therapy
CPT/HCPCS: 36415; 72131; 72192; 73560; 80053; 81001; 83880; 85025; 85610; 87086; 87088; 87186; 99285; A9270; J0696; J1644; J3490; J7050

== ENCOUNTER 2020-01-01 02:09 | Emergency (ER) | payer MEDICARE, OTHER ==
[2020-01-01 02:57] LABS: ANION GAP 11.4; CHLORIDE,CL 106 mmol/L (101-111); SODIUM,NA 142 mmol/L (135-145)
--- NOTE | 2020-01-01 02:57 | EDM.PDOC ---
ED HPI GENERAL MEDICAL PROBLEM - General Chief Complaint: Trauma Stated Complaint: FELL CUT ON HER RIGHT SIDE OF HEAD Time Seen by Provider: 01/01/20 02:15 Source of Information: Reports: Patient, Family, RN, RN Notes Reviewed History Limitations: Reports: Altered Mental Status (dementia, patient states the correct month, unsure of the day or the year, unsure of the president, unable to state where she is, and unable to state her date of .Her sons who are present state this is not uncommon) - History of Present Illness INITIAL COMMENTS - FREE TEXT/NARRATIVE: Patient presents to ER with her sons with complaint of cut to the right side of her head. Son states the patient fell in her room and hit her head on her dresser. Other son heard her fall and heard her call out for help, was found immediately. Sons deny loss of consciousness. Patient denies pain anywhere else. Son states she does take a blood thinner, but is unsure why. Sons state the patient has dementia and is confused at times, has difficulty finding her words at times. Patient lives at home with her 2 sons. Family states the patients last tetanus was last fall, less than 1 year ago. GCS upon arrival; 14 patient unable to state date, but sons tell provider this is not uncommon GCS at 1 hour: 14 GCS at discharge: 14 Onset: Today, Sudden - Related Data Allergies Allergy/AdvReac Type Severity Reaction Status Date / Time ciprofloxacin Allergy Cannot Verified 09/02/19 03:21 Remember hydrocodone Allergy Dizziness Verified 09/02/19 03:21 sulfamethizole Allergy Rash Verified 09/02/19 03:21 sulfamethoxazole Allergy Itching Verified 09/02/19 03:21 [From Bactrim] trimethoprim [From Bactrim] Allergy Itching Verified 09/02/19 03:21 Home Meds: Home Meds Alendronate Sodium [Alendronate] 70 mg PO ASDIRECTED 07/05/14 [History] Aspirin [Ashley Chewable Aspirin] 81 mg PO DAILY 07/05/14 [History] Clopidogrel Bisulfate [Clopidogrel] 75 mg PO DAILY 07/05/14 [History] Calcium Citrate/Vitamin D3 [Calcium Citrate + D] 1 tab PO DAILY 04/10/15 [ History] Multivitamin with Minerals [Multiple Vitamin] 1 tab PO DAILY 04/10/15 [History] Pantoprazole [ProTONIX] 40 mg PO DAILY 04/10/15 [History] Propranolol HCl [Propranolol] 1 tab PO DAILY 01/22/18 [History] cephALEXin [Keflex 250 MG/5 ML Susp] 500 mg PO BID #10 bottle 09/03/19 [Rx] Past Medical History HEENT History: Reports: Hard of Hearing, Impaired Vision, Other (See Below) Other HEENT History: wear glasses Cardiovascular History: Reports: CAD Other Cardiovascular History: carotid artery disease Respiratory History: Reports: None Gastrointestinal History: Reports: Chronic Constipation, GERD Genitourinary History: Reports: UTI, Recurrent 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 Musculoskeletal History: Reports: Other (See Below) Other Musculoskeletal History: Right shoulder pain Neurological History: Reports: Concussion Psychiatric History: Reports: Dementia Endocrine/Metabolic History: Reports: None Hematologic History: Reports: None Immunologic History: Reports: None Oncologic (Cancer) History: Reports: None Dermatologic History: Reports: None - Infectious Disease History Infectious Disease History: Reports: Measles - Past Surgical History Cardiovascular Surgical History: Reports: None GI Surgical History: Reports: None Neurological Surgical History: Reports: None Musculoskeletal Surgical History: Reports: None Social & Family History - Family History Family Medical History: Noncontributory - Caffeine Use Caffeine Use: Reports: Coffee, Soda - Living Situation & Occupation Living situation: Reports: with Family Occupation: Retired Review of Systems - Review of Systems Review Of Systems: Comprehensive ROS is negative, except as noted in HPI. ED EXAM, GENERAL - Physical Exam Exam: See Below Exam Limited By: No Limitations General Appearance: Alert, WD/WN, No Apparent Distress, Anxious Eye Exam: Bilateral Eye: EOMI, Normal Inspection, PERRL (2, sluggish) Ears: Normal External Exam, Normal Canal, Hearing Grossly Normal, Normal TMs Nose: Normal Inspection, Normal Mucosa, No Blood Throat/Mouth: Normal Inspection, Normal Lips, Normal Teeth, Normal Gums, Normal Oropharynx, Normal Voice, No Airway Compromise Head: Other (Hematoma approximately 3 cm x 2 cm with a 1cm laceration in the center) Neck: Other (kyphosis) Respiratory/Chest: No Respiratory Distress, Lungs Clear, Normal Breath Sounds, No Accessory Muscle Use, Chest Non-Tender, Decreased Breath Sounds Cardiovascular: Normal Peripheral Pulses, No Edema, No Gallop, No JVD, No Murmur , No Rub, Irregularly Irregular GI/Abdominal: Normal Bowel Sounds, Soft, Non-Tender, No Organomegaly, No Distention, No Abnormal Bruit, No Mass, Pelvis Stable (Female) Exam: Deferred Rectal (Female) Exam: Deferred Back Exam: Normal Inspection, Full Range of Motion, NT Extremities: Normal Inspection, Normal Range of Motion, Non-Tender, Normal Capillary Refill, No Pedal Edema Neurological: Alert, Confused, Disoriented, Memory Loss Remote Events, Memory Loss Recent Events Psychiatric: Normal Affect, Normal Mood, Anxious Skin Exam: Warm, Dry, Normal Color, No Rash, Other (1 cm laceration in the center of 3cm x 2cm hematoma to the right side of the scalp) Lymphatic: No Adenopathy ED TRAUMA PROCEDURES - Laceration/Wound Repair Right Upper Medial Head Lac/Wound Length In cm: 1 Appearance: Superficial Skin Prep: Chlorhexidine (Hibiciens) Exploration/Debridement/Repair: Wound Explored, In a Bloodless Field, Explored to Base, No Foreign Material Found Closed With: Tommie # of Sutures: 2 Drain Placement: No Sterile Dressing Applied: Nurse Tetanus Status Addressed: Yes Complications: No Course - Orders/Labs/Meds Orders: Active Orders 24 hr Category Date Time Status Cervical Spine wo Cont [CT] Urgent Exams 01/01/20 02:20 Taken Head wo Cont [CT] Stat Exams 01/01/20 02:20 Taken CULTURE URINE [RM] Stat Lab 01/01/20 03:05 Received Labs: Laboratory Tests 01/01/20 01/01/20 01/01/20 Range/Units 02:30 02:30 02:30 WBC 8.8 (5.0-10.0) 10^3/uL RBC 4.26 (4.2-5.4) 10^6/uL Hgb 12.7 (12.0-16.0) g/dL Hct 39.3 (37.0-47.0) % MCV 92.3 (80-100) fL MCH 29.8 (27.0-34.0) pg MCHC 32.3 L (33.0-35.0) g/dL Plt Count 216 (150-450) 10^3/uL Neut % (Auto) 76.7 H (42.2-75.2) % Lymph % (Auto) 14.0 L (20.5-50.1) % [place] % (Auto) 6.3 (2-8) % Eos % (Auto) 2.5 (1.0-3.0) % Baso % (Auto) 0.5 (0.0-1.0) % PT 9.3 (9.0-12.0) SEC INR 0.9 (0.9-1.2) Sodium 142 (135-145) mmol/L Potassium 3.4 L (3.6-5.0) mmol/L Chloride 106 (101-111) mmol/L Carbon Dioxide 28.0 (21.0-31.0) mmol/L Anion Gap 11.4 BUN 27 H (7-18) mg/dL Creatinine 0.7 (0.6-1.3) mg/dL Est Cr Clr Drug Dosing TNP Estimated GFR (MDRD) > 60 BUN/Creatinine Ratio 38.57 Glucose 108 H (74-105) mg/dL Calcium 8.9 (8.4-10.2) mg/dl Total Bilirubin 0.9 (0.2-1.0) mg/dL AST 22 (10-42) IU/L ALT 13 (10-60) IU/L Alkaline Phosphatase 81 (42-121) IU/L Total Protein 7.3 (6.7-8.2) g/dl Albumin 4.1 (3.2-5.5) g/dl Globulin 3.2 Albumin/Globulin Ratio 1.28 Urine Color (YELLOW) Urine Appearance (CLEAR) Urine pH (5.0-9.0) Ur Specific [place] (1.005-1.030) Urine Protein (NEGATIVE) Urine Glucose (UA) (NEGATIVE) Urine Ketones (NEGATIVE) Urine Occult Blood (NEGATIVE) Urine Nitrite (NEGATIVE) Urine Bilirubin (NEGATIVE) Urine Urobilinogen (0.2-1.0) mg/dL Ur Leukocyte Esterase (NEGATIVE) Urine RBC /HPF Urine WBC (0-5/HPF) /HPF Ur Epithelial Cells (NOT SEEN) /HPF Urine Bacteria (0-FEW/HPF) /HPF 01/01/20 Range/Units 03:05 WBC (5.0-10.0) 10^3/uL RBC (4.2-5.4) 10^6/uL Hgb (12.0-16.0) g/dL Hct (37.0-47.0) % MCV (80-100) fL MCH (27.0-34.0) pg MCHC (33.0-35.0) g/dL Plt Count (150-450) 10^3/uL Neut % (Auto) (42.2-75.2) % Lymph % (Auto) (20.5-50.1) % [place] % (Auto) (2-8) % Eos % (Auto) (1.0-3.0) % Baso % (Auto) (0.0-1.0) % PT (9.0-12.0) SEC INR (0.9-1.2) Sodium (135-145) mmol/L Potassium (3.6-5.0) mmol/L Chloride (101-111) mmol/L Carbon Dioxide (21.0-31.0) mmol/L Anion Gap BUN (7-18) mg/dL Creatinine (0.6-1.3) mg/dL Est Cr Clr Drug Dosing Estimated GFR (MDRD) BUN/Creatinine Ratio Glucose (74-105) mg/dL Calcium (8.4-10.2) mg/dl Total Bilirubin (0.2-1.0) mg/dL AST (10-42) IU/L ALT (10-60) IU/L Alkaline Phosphatase (42-121) IU/L Total Protein (6.7-8.2) g/dl Albumin (3.2-5.5) g/dl Globulin Albumin/Globulin Ratio Urine Color Yellow (YELLOW) Urine Appearance Cloudy (CLEAR) Urine pH 6.5 (5.0-9.0) Ur Specific [place] 1.025 (1.005-1.030) Urine Protein 30 H (NEGATIVE) Urine Glucose (UA) Negative (NEGATIVE) Urine Ketones Negative (NEGATIVE) Urine Occult Blood Trace-intact H (NEGATIVE) Urine Nitrite Positive H (NEGATIVE) Urine Bilirubin Negative (NEGATIVE) Urine Urobilinogen 0.2 (0.2-1.0) mg/dL Ur Leukocyte Esterase Moderate H (NEGATIVE) Urine RBC 0-5 /HPF Urine WBC Packed H (0-5/HPF) /HPF Ur Epithelial Cells Many H (NOT SEEN) /HPF Urine Bacteria Many H (0-FEW/HPF) /HPF Meds: Medications Discontinued Medications Generic Name Dose Route Start Last Admin Trade Name Freq PRN Reason Stop Dose Admin Cephalexin 500 mg 01/01/20 03:35 01/01/20 03:41 Keflex PO 01/01/20 03:36 500 mg ONETIME ONE Administration - Radiology Interpretation Free Text/Narrative:: CT Head wo contrast: FINDINGS: Brain: There is moderate diffuse cerebral atrophy. Patchy areas of hypoattenuation seen in the deep white matter of the cerebral hemispheres bilaterally compatible with deep white matter microvascular disease. Focal hypoattenuation seen within the left basal ganglia compatible with a chronic lacunar infarction. Ventricles: Normal. No ventriculomegaly. Bones/joints: Unremarkable. No acute fracture. Sinuses: Visualized sinuses are unremarkable. No fluid levels. Mastoid air cells: Visualized mastoid air cells are well aerated. Soft tissues: There is soft tissue swelling, hematoma and some skin tommie seen within the right parietal scalp. IMPRESSION: There are no acute intracranial findings. Thank you for allowing us to participate in the care of your patient. Dictated and Authenticated by: Lucas Porras MD 01/01/2020 2:54 AM Central Time ([place] & [place]) CT CSpine wo contrast: FINDINGS: Vertebrae: There is multilevel anterior spondylolisthesis extending from C4-C5 to C7-T1. At C4-C5, it measures 3.6 mm, at C5-C6, it measures 3.2 mm, at C4-C5, it measures 4.5 mm and at C 6-C7, it measures 4.2 mm. This is likely secondary to degenerative disc disease and laxity of the longitudinal ligaments. Discs/Spinal canal/Neural foramina: Sclerosis, joint space narrowing and bone spurring is seen within the facets of the cervical spine compatible with diffuse degenerative joint disease. There is diffuse degenerative disc disease loss of disc height within the cervical spine , most notably from C5 to T1. Soft tissues: Unremarkable. Lungs: An azygos lobe and fissure is present, a normal variant. There are patchy opacity seen in the lung apices bilaterally likely representing apical pleural and parenchymal scarring. Vasculature: Calcifications are seen within the thoracic aorta. IMPRESSION: There are no acute osseous findings. Thank you for allowing us to participate in the care of your patient. Dictated and Authenticated by: Lucas Porras MD 01/01/2020 2:59 AM Central Time ([place] & [place]) See rad report Departure - Departure Time of Disposition: 03:52 Disposition: Home, Self-Care 01 Condition: Fair Clinical Impression: Laceration, Hematoma Fall at home Qualifiers: Encounter type: initial encounter Qualified Code(s): W19.XXXA - Unspecified fall, initial encounter Head injury Qualifiers: Encounter type: initial encounter Qualified Code(s): S09.90XA - Unspecified injury of head, initial encounter UTI (urinary tract infection) Qualifiers: Urinary tract infection type: acute cystitis Hematuria presence: with hematuria Qualified Code(s): N30.01 - Acute cystitis with hematuria - Discharge Information *PRESCRIPTION DRUG MONITORING PROGRAM REVIEWED*: No *COPY OF PRESCRIPTION DRUG MONITORING REPORT IN PATIENT JUD: No Instructions: Concussion, Adult, [id number], Urinary Tract Infection, Adult, [id number], Head Injury, Adult, [id number], Laceration Care, Adult, Easy-to- Read, Stitches, [place], or Adhesive Wound Closure, [id number], Hematoma, Easy -to-Read Forms: ED Department Discharge Additional Instructions: Drink plenty of water RX: Cephalexin May apply ice to the head as tolerated May use Tylenol as directed for pain Follow up with your primary care facility in 7-10 days for removal of tommie Return to ER with any worsening of problems Sepsis Event Note - Focused Exam Date Exam was Performed: 01/01/20 Time Exam was Performed: 03:52 - My Orders Last 24 Hours: My Active Orders 01/01/20 02:20 Cervical Spine wo Cont [CT] Urgent Head wo Cont [CT] Stat 01/01/20 03:05 CULTURE URINE [RM] Stat - Assessment/Plan Last 24 Hours: My Active Orders 01/01/20 02:20 Cervical Spine wo Cont [CT] Urgent Head wo Cont [CT] Stat 01/01/20 03:05 CULTURE URINE [RM] Stat
[2020-01-01] MEDS ORDERED: Cephalexin 500 MG Cap PO ONE (03:35)
== END 2020-01-01 04:02 | disposition home or self-care (01) ==
LOC: DL.ED 02:09
DX: S01.81XA Laceration without foreign body of other part of head, initial encounter (principal); N30.01 Acute cystitis with hematuria; I25.10 Atherosclerotic heart disease of native coronary artery without angina pectoris; K21.9 Gastro-esophageal reflux disease without esophagitis; Z88.1 Allergy status to other antibiotic agents; Z88.5 Allergy status to narcotic agent; Z88.2 Allergy status to sulfonamides; Z79.82 Long term (current) use of aspirin; Z79.02 Long term (current) use of antithrombotics/antiplatelets; Z79.899 Other long term (current) drug therapy; W18.30XA Fall on same level, unspecified, initial encounter
CPT/HCPCS: 12001; 12011; 36415; 70450; 72125; 80053; 81001; 85025; 85610; 87086; 87088; 87186; 99283; 99284; A9270

== ENCOUNTER 2020-01-11 02:00 | Inpatient (IN) | payer MEDICARE, OTHER ==
--- NOTE | 2020-01-11 02:01 | EDM.PDOC ---
ED HPI GENERAL MEDICAL PROBLEM - General Stated Complaint: AMBULANCE Time Seen by Provider: 01/11/20 01:45 Source of Information: Reports: Family History Limitations: Reports: Altered Mental Status - History of Present Illness INITIAL COMMENTS - FREE TEXT/NARRATIVE: This 80 yo female patient was brought to the ED by [facility] due to altered mentation. The patient's son reports the patient had been doing well up to about 1 hour prior to her arrival. The patient's son reports the patient has not fallen today. The patient did fall about 1 week ago and was seen in the ED. The patient has bruising to her right shoulder due to the previous fall. The patient's son reports the patient had a similar episode in the past due to a urinary tract infection. During that visit, the patient was admitted to the hospital for continued treatment. Onset: Today Duration: Hour(s): (1), Constant Location: Reports: Other Quality: Reports: Other Severity: Severe Improves with: Reports: None Worsens with: Reports: None Context: Reports: Other Associated Symptoms: Reports: Confusion Generalized Pain Score (Numeric/FACES): 5 - Related Data Allergies Allergy/AdvReac Type Severity Reaction Status Date / Time ciprofloxacin Allergy Cannot Verified 09/02/19 03:21 Remember hydrocodone Allergy Dizziness Verified 09/02/19 03:21 sulfamethizole Allergy Rash Verified 09/02/19 03:21 sulfamethoxazole Allergy Itching Verified 09/02/19 03:21 [From Bactrim] trimethoprim [From Bactrim] Allergy Itching Verified 09/02/19 03:21 Home Meds: Home Meds Alendronate Sodium [Alendronate] 70 mg PO ASDIRECTED 07/05/14 [History] Aspirin [Ashley Chewable Aspirin] 81 mg PO DAILY 07/05/14 [History] Clopidogrel Bisulfate [Clopidogrel] 75 mg PO DAILY 07/05/14 [History] Calcium Citrate/Vitamin D3 [Calcium Citrate + D] 1 tab PO DAILY 04/10/15 [ History] Multivitamin with Minerals [Multiple Vitamin] 1 tab PO DAILY 04/10/15 [History] Pantoprazole [ProTONIX] 40 mg PO DAILY 04/10/15 [History] Propranolol HCl [Propranolol] 1 tab PO DAILY 01/22/18 [History] cephALEXin [Keflex 250 MG/5 ML Susp] 500 mg PO BID #10 bottle 09/03/19 [Rx] Past Medical History HEENT History: Reports: Hard of Hearing, Impaired Vision, Other (See Below) Other HEENT History: wear glasses Cardiovascular History: Reports: CAD Other Cardiovascular History: carotid artery disease Respiratory History: Reports: None Gastrointestinal History: Reports: Chronic Constipation, GERD Genitourinary History: Reports: UTI, Recurrent 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 Musculoskeletal History: Reports: Other (See Below) Other Musculoskeletal History: Right shoulder pain Neurological History: Reports: Concussion Psychiatric History: Reports: Dementia Endocrine/Metabolic History: Reports: None Hematologic History: Reports: None Immunologic History: Reports: None Oncologic (Cancer) History: Reports: None Dermatologic History: Reports: None - Infectious Disease History Infectious Disease History: Reports: Measles - Past Surgical History Cardiovascular Surgical History: Reports: None GI Surgical History: Reports: None Neurological Surgical History: Reports: None Musculoskeletal Surgical History: Reports: None Social & Family History - Family History Family Medical History: Noncontributory - Caffeine Use Caffeine Use: Reports: Coffee, Soda - Living Situation & Occupation Living situation: Reports: with Family Occupation: Retired ED ROS GENERAL - Review of Systems Review Of Systems: Comprehensive ROS is negative, except as noted in HPI. - Physical Exam Exam: See Below Exam Limited By: No Limitations General Appearance: Alert, Anxious Eye Exam: Bilateral Eye: EOMI, PERRL Ears: Normal External Exam, Normal Canal, Hearing Grossly Normal, Normal TMs Nose: Normal Inspection, Normal Mucosa, No Blood Throat/Mouth: Normal Inspection, Normal Lips, Normal Teeth, Normal Gums, Normal Oropharynx, Normal Voice, No Airway Compromise Head Exam: Atraumatic, Normocephalic Neck: Normal Inspection, Supple, Non-Tender, Full Range of Motion Respiratory/Chest: No Respiratory Distress, Lungs Clear, Normal Breath Sounds, No Accessory Muscle Use, Chest Non-Tender Cardiovascular: Normal Peripheral Pulses, Regular Rate, Rhythm, No Edema, No Gallop, No JVD, No Murmur, No Rub GI/Abdominal: Normal Bowel Sounds, Soft, Non-Tender, No Organomegaly, No Distention, No Abnormal Bruit, No Mass (Female) Exam: Deferred Rectal (Female) Exam: Deferred Neuro Exam (Abbreviated): Alert, Confused, Disoriented Back Exam: Normal Inspection, Full Range of Motion, NT Extremities: Arm Pain (bruising to the right shoulder from previous fall) Skin Exam: Warm, Dry, Intact, Normal Color, No Rash Course - Vital Signs Last Recorded V/S: Last Vital Signs Temp 37.2 C 01/11/20 01:51 Pulse Resp 19 01/11/20 01:51 BP Pulse Ox - Orders/Labs/Meds Orders: Active Orders 24 hr Category Date Time Status Admission Diagnosis [ADT] Urgent ADT 01/11/20 02:49 Ordered Admission Status [Patient Status] [ADT] Routine ADT 01/11/20 02:49 Ordered EKG Documentation Completion [RC] URGENT Care 01/11/20 01:43 Active CULTURE BLOOD [BC] Stat Lab 01/11/20 01:57 Received CULTURE URINE [RM] Urgent Lab 01/11/20 02:00 Received Labs: Laboratory Tests 01/11/20 01/11/20 01/11/20 Range/Units 01:57 01:57 01:57 WBC 7.8 (5.0-10.0) 10^3/uL RBC 4.23 (4.2-5.4) 10^6/uL Hgb 12.6 (12.0-16.0) g/dL Hct 39.3 (37.0-47.0) % MCV 92.9 (80-100) fL MCH 29.8 (27.0-34.0) pg MCHC 32.1 L (33.0-35.0) g/dL Plt Count 238 (150-450) 10^3/uL Neut % (Auto) 77.5 H (42.2-75.2) % Lymph % (Auto) 10.5 L (20.5-50.1) % [place] % (Auto) 9.8 H (2-8) % Eos % (Auto) 1.8 (1.0-3.0) % Baso % (Auto) 0.4 (0.0-1.0) % Sodium 144 (136-145) mmol/L Potassium 4.0 (3.5-5.1) mmol/L Chloride 104 (98-107) mmol/L Carbon Dioxide 33 H (21-32) mmol/L Anion Gap 11.0 (7-13) mEq/L BUN 23 H (7-18) mg/dL Creatinine 0.87 (0.55-1.02) mg/dL Est Cr Clr Drug Dosing TNP Estimated GFR (MDRD) > 60 BUN/Creatinine Ratio 26.4 (No establ ref range) Glucose 142 H (74-99) mg/dL Lactic Acid 2.3 H* (0.4-2.0) mmol/L Calcium 8.5 (8.5-10.1) mg/dL Total Bilirubin 1.1 H (0.2-1.0) mg/dL AST 22 (15-37) U/L ALT 19 (14-59) U/L Alkaline Phosphatase 107 (46-116) U/L Troponin I 0.049 (0.000-0.056) ng/mL Total Protein 6.9 (6.4-8.2) g/dL Albumin 3.7 (3.4-5.0) g/dL Globulin 3.2 Albumin/Globulin Ratio 1.2 Urine Color (YELLOW) Urine Appearance (CLEAR) Urine pH (5.0-9.0) Ur Specific [place] (1.005-1.030) Urine Protein (NEGATIVE) Urine Glucose (UA) (NEGATIVE) Urine Ketones (NEGATIVE) Urine Occult Blood (NEGATIVE) Urine Nitrite (NEGATIVE) Urine Bilirubin (NEGATIVE) Urine Urobilinogen (0.2-1.0) mg/dL Ur Leukocyte Esterase (NEGATIVE) Urine RBC /HPF Urine WBC (0-5/HPF) /HPF Ur Epithelial Cells (NOT SEEN) /HPF Amorphous Sediment (NOT SEEN) /HPF Urine Bacteria (0-FEW/HPF) /HPF Urine Mucus (NOT SEEN) /LPF 01/11/20 Range/Units 02:00 WBC (5.0-10.0) 10^3/uL RBC (4.2-5.4) 10^6/uL Hgb (12.0-16.0) g/dL Hct (37.0-47.0) % MCV (80-100) fL MCH (27.0-34.0) pg MCHC (33.0-35.0) g/dL Plt Count (150-450) 10^3/uL Neut % (Auto) (42.2-75.2) % Lymph % (Auto) (20.5-50.1) % [place] % (Auto) (2-8) % Eos % (Auto) (1.0-3.0) % Baso % (Auto) (0.0-1.0) % Sodium (136-145) mmol/L Potassium (3.5-5.1) mmol/L Chloride (98-107) mmol/L Carbon Dioxide (21-32) mmol/L Anion Gap (7-13) mEq/L BUN (7-18) mg/dL Creatinine (0.55-1.02) mg/dL Est Cr Clr Drug Dosing Estimated GFR (MDRD) BUN/Creatinine Ratio (No establ ref range) Glucose (74-99) mg/dL Lactic Acid (0.4-2.0) mmol/L Calcium (8.5-10.1) mg/dL Total Bilirubin (0.2-1.0) mg/dL AST (15-37) U/L ALT (14-59) U/L Alkaline Phosphatase (46-116) U/L Troponin I (0.000-0.056) ng/mL Total Protein (6.4-8.2) g/dL Albumin (3.4-5.0) g/dL Globulin Albumin/Globulin Ratio Urine Color Yellow (YELLOW) Urine Appearance Turbid (CLEAR) Urine pH 5.5 (5.0-9.0) Ur Specific [place] >= 1.030 (1.005-1.030) Urine Protein 100 H (NEGATIVE) Urine Glucose (UA) Negative (NEGATIVE) Urine Ketones Trace H (NEGATIVE) Urine Occult Blood Small H (NEGATIVE) Urine Nitrite Positive H (NEGATIVE) Urine Bilirubin Negative (NEGATIVE) Urine Urobilinogen 0.2 (0.2-1.0) mg/dL Ur Leukocyte Esterase Small H (NEGATIVE) Urine RBC 5-10 H /HPF Urine WBC >100 H (0-5/HPF) /HPF Ur Epithelial Cells Moderate H (NOT SEEN) /HPF Amorphous Sediment Few (NOT SEEN) /HPF Urine Bacteria Many H (0-FEW/HPF) /HPF Urine Mucus Not seen (NOT SEEN) /LPF Meds: Medications Discontinued Medications Generic Name Dose Route Start Last Admin Trade Name Freq PRN Reason Stop Dose Admin Ceftriaxone Sodium 1 gm/ 0 gm 01/11/20 02:46 01/11/20 02:51 Lidocaine HCl 2.1 ml IM 01/11/20 02:47 1 inj ONETIME ONE Administration Departure - Departure Time of Disposition: 02:53 Disposition: Admitted As Inpatient 64 Condition: Fair Clinical Impression: UTI (urinary tract infection) Qualifiers: Urinary tract infection type: acute cystitis Hematuria presence: with hematuria Qualified Code(s): N30.01 - Acute cystitis with hematuria Altered mental status Qualifiers: Altered mental status type: unspecified Qualified Code(s): R41.82 - Altered mental status, unspecified - Discharge Information *PRESCRIPTION DRUG MONITORING PROGRAM REVIEWED*: Not Applicable *COPY OF PRESCRIPTION DRUG MONITORING REPORT IN PATIENT JUD: Not Applicable Care Plan Goals: Discussed the patient's history, examination and lab results with Dr. Muir. Dr. Muir accepted the patient for continued evaluation and management as an observation patient at [facility]. Sepsis Event Note - Evaluation Sepsis Screening Result: No Definite Risk - Focused Exam Vital Signs: Vital Signs Temp Resp 01/11/20 01:51 37.2 C 19 Date Exam was Performed: 01/11/20 Time Exam was Performed: 02:53 - My Orders Last 24 Hours: My Active Orders 01/11/20 01:43 EKG Documentation Completion [RC] URGENT 01/11/20 01:57 CULTURE BLOOD [BC] Stat 01/11/20 02:00 CULTURE URINE [RM] Urgent 01/11/20 02:49 Admission Diagnosis [ADT] Urgent Admission Status [Patient Status] [ADT] Routine - Assessment/Plan Last 24 Hours: My Active Orders 01/11/20 01:43 EKG Documentation Completion [RC] URGENT 01/11/20 01:57 CULTURE BLOOD [BC] Stat 01/11/20 02:00 CULTURE URINE [RM] Urgent 01/11/20 02:49 Admission Diagnosis [ADT] Urgent Admission Status [Patient Status] [ADT] Routine
[2020-01-11 02:41] LABS: CHLORIDE,CL 104 mmol/L (98-107); SODIUM,NA 144 mmol/L (136-145)
[2020-01-11] MEDS ORDERED: cefTRIAXone 1 GM, Lidocaine 1% 2.1 ML IM ONE ×2 (02:46)
[2020-01-11] MEDS ORDERED: Temazepam 15 MG Cap PO PRN (03:31)
[2020-01-11] MEDS ORDERED: Docusate Sodium 100 MG Cap PO PRN (03:31)
[2020-01-11] MEDS ORDERED: Ondansetron 4 MG Tab.DIS PO PRN (03:31)
[2020-01-11] MEDS ORDERED: Ondansetron 4 MG/2 ML SDV IVPUSH PRN (03:31)
[2020-01-11] MEDS ORDERED: Acetaminophen 325 MG Tab PO PRN (03:31)
[2020-01-11] MEDS ORDERED: LORazepam 2 MG/ML SDV IVPUSH PRN (03:31)
[2020-01-11] MEDS: OLANZapine 10 MG Vial IM PRN ×2 (04:00→13:31)
[2020-01-11] MEDS: Heparin Sodium 5,000 Units/ML Vial SUBCUT SCH ×2 (05:31→15:42)
[2020-01-11] MEDS ORDERED: Pantoprazole 40 MG Tab.CR PO SCH (06:00)
[2020-01-11] MEDS ORDERED: Clopidogrel 75 MG Tab PO SCH (09:00)
[2020-01-11] MEDS ORDERED: Aspirin 81 MG Tab.Chew PO SCH (09:00)
[2020-01-11] MEDS ORDERED: Propranolol 60 MG Cap.ER PO SCH (09:00)
[2020-01-11 09:48] LABS: ANION GAP 11.3 mEq/L (7-13); CHLORIDE,CL 102 mmol/L (98-107); SODIUM,NA 141 mmol/L (136-145)
--- NOTE | 2020-01-11 10:36 | PCM.HP ---
H&P History of Present Illness - General Date of Service: 01/11/20 Admit Problem/Dx: Admission Diagnosis/Problem Admission Diagnosis/Problem Urinary tract infection Source of Information: Family, Provider (ER) - History of Present Illness Initial Comments - Free Text/Narative: 80 yo with h/o pad, frequent uti associated with agitation she lives with sons had a fall a week ago with head trauma - laceration repaired presented with sudden onset of confusion, agitation no associated motor deficit pt is agressive, confused - information is limited Generalized Pain Score (Numeric/FACES): 2 - Related Data Allergies/Adverse Reactions: Allergies Allergy/AdvReac Type Severity Reaction Status Date / Time ciprofloxacin Allergy Cannot Verified 09/02/19 03:21 Remember hydrocodone Allergy Dizziness Verified 09/02/19 03:21 sulfamethizole Allergy Rash Verified 09/02/19 03:21 sulfamethoxazole Allergy Itching Verified 09/02/19 03:21 [From Bactrim] trimethoprim [From Bactrim] Allergy Itching Verified 09/02/19 03:21 Home Medications: Home Meds Alendronate Sodium [Alendronate] 70 mg PO ASDIRECTED 07/05/14 [History] Aspirin [Ashley Chewable Aspirin] 81 mg PO DAILY 07/05/14 [History] Clopidogrel Bisulfate [Clopidogrel] 75 mg PO DAILY 07/05/14 [History] Calcium Citrate/Vitamin D3 [Calcium Citrate + D] 1 tab PO DAILY 04/10/15 [ History] Multivitamin with Minerals [Multiple Vitamin] 1 tab PO DAILY 04/10/15 [History] Pantoprazole [ProTONIX] 40 mg PO DAILY 04/10/15 [History] Propranolol HCl [Propranolol] 1 tab PO DAILY 01/22/18 [History] Past Medical History HEENT History: Reports: Hard of Hearing, Impaired Vision, Other (See Below) Other HEENT History: wear glasses Cardiovascular History: Reports: CAD Other Cardiovascular History: carotid artery disease Respiratory History: Reports: None Gastrointestinal History: Reports: Chronic Constipation, GERD Genitourinary History: Reports: UTI, Recurrent RANGE MOUNTER History: Reports: None Musculoskeletal History: Reports: Other (See Below) Other Musculoskeletal History: Right shoulder pain Neurological History: Reports: Concussion Psychiatric History: Reports: Dementia Endocrine/Metabolic History: Reports: None Hematologic History: Reports: None Immunologic History: Reports: None Oncologic (Cancer) History: Reports: None Dermatologic History: Reports: None - Infectious Disease History Infectious Disease History: Reports: Measles - Past Surgical History Cardiovascular Surgical History: Reports: None GI Surgical History: Reports: None Neurological Surgical History: Reports: None Musculoskeletal Surgical History: Reports: None Social & Family History - Family History Family Medical History: Noncontributory - Tobacco Use Smoking Status *Q: Never Smoker Second Hand Smoke Exposure: No - Caffeine Use Caffeine Use: Reports: None - Recreational Drug Use Recreational Drug Use: No - Living Situation & Occupation Living situation: Reports: with Family Occupation: Retired H&P Review of Systems - Review of Systems: Review Of Systems: Unable To Obtain (pt is agitated, non cooperative) Reason Not Obtained: agitation Exam - Exam Exam: See Below (limited due to lack of cooperation, agressive) - Vital Signs Vital Signs: Last Vital Signs Temp 97.8 F 01/11/20 07:52 Pulse 79 01/11/20 07:52 Resp 20 01/11/20 07:52 BP Pulse Ox 95 01/11/20 07:52 Weight: 121 lb 9.6 oz - Exam General: Alert. No: Oriented HEENT: EOMI, Hearing Intact Neck: Supple Lungs: Clear to Auscultation, Normal Respiratory Effort Extremities: No Pedal Edema - Patient Data Lab Results Last 24 hrs: Laboratory Results - last 24 hr 01/11/20 01/11/20 01/11/20 Range/Units 01:57 01:57 01:57 WBC 7.8 (5.0-10.0) 10^3/uL RBC 4.23 (4.2-5.4) 10^6/uL Hgb 12.6 (12.0-16.0) g/dL Hct 39.3 (37.0-47.0) % MCV 92.9 (80-100) fL MCH 29.8 (27.0-34.0) pg MCHC 32.1 L (33.0-35.0) g/dL Plt Count 238 (150-450) 10^3/uL Neut % (Auto) 77.5 H (42.2-75.2) % Lymph % (Auto) 10.5 L (20.5-50.1) % Door % (Auto) 9.8 H (2-8) % Eos % (Auto) 1.8 (1.0-3.0) % Baso % (Auto) 0.4 (0.0-1.0) % Sodium 144 (136-145) mmol/L Potassium 4.0 (3.5-5.1) mmol/L Chloride 104 (98-107) mmol/L Carbon Dioxide 33 H (21-32) mmol/L Anion Gap 11.0 (7-13) mEq/L BUN 23 H (7-18) mg/dL Creatinine 0.87 (0.55-1.02) mg/dL Est Cr Clr Drug Dosing TNP Estimated GFR (MDRD) > 60 BUN/Creatinine Ratio 26.4 (No establ ref range) Glucose 142 H (74-99) mg/dL Lactic Acid 2.3 H* (0.4-2.0) mmol/L Calcium 8.5 (8.5-10.1) mg/dL Total Bilirubin 1.1 H (0.2-1.0) mg/dL AST 22 (15-37) U/L ALT 19 (14-59) U/L Alkaline Phosphatase 107 (46-116) U/L Troponin I 0.049 (0.000-0.056) ng/mL Total Protein 6.9 (6.4-8.2) g/dL Albumin 3.7 (3.4-5.0) g/dL Globulin 3.2 Albumin/Globulin Ratio 1.2 Urine Color (YELLOW) Urine Appearance (CLEAR) Urine pH (5.0-9.0) Ur Specific [place] (1.005-1.030) Urine Protein (NEGATIVE) Urine Glucose (UA) (NEGATIVE) Urine Ketones (NEGATIVE) Urine Occult Blood (NEGATIVE) Urine Nitrite (NEGATIVE) Urine Bilirubin (NEGATIVE) Urine Urobilinogen (0.2-1.0) mg/dL Ur Leukocyte Esterase (NEGATIVE) Urine RBC /HPF Urine WBC (0-5/HPF) /HPF Ur Epithelial Cells (NOT SEEN) /HPF Amorphous Sediment (NOT SEEN) /HPF Urine Bacteria (0-FEW/HPF) /HPF Urine Mucus (NOT SEEN) /LPF 01/11/20 01/11/20 01/11/20 Range/Units 02:00 09:27 09:27 WBC 7.6 (5.0-10.0) 10^3/uL RBC 4.29 (4.2-5.4) 10^6/uL Hgb 12.9 (12.0-16.0) g/dL Hct 39.4 (37.0-47.0) % MCV 91.8 (80-100) fL MCH 30.1 (27.0-34.0) pg MCHC 32.7 L (33.0-35.0) g/dL Plt Count 228 (150-450) 10^3/uL Neut % (Auto) 76.3 H (42.2-75.2) % Lymph % (Auto) 10.9 L (20.5-50.1) % Door % (Auto) 10.5 H (2-8) % Eos % (Auto) 2.0 (1.0-3.0) % Baso % (Auto) 0.3 (0.0-1.0) % Sodium (136-145) mmol/L Potassium (3.5-5.1) mmol/L Chloride (98-107) mmol/L Carbon Dioxide (21-32) mmol/L Anion Gap (7-13) mEq/L BUN (7-18) mg/dL Creatinine (0.55-1.02) mg/dL Est Cr Clr Drug Dosing Estimated GFR (MDRD) BUN/Creatinine Ratio (No establ ref range) Glucose (74-99) mg/dL Lactic Acid 1.3 (0.4-2.0) mmol/L Calcium (8.5-10.1) mg/dL Total Bilirubin (0.2-1.0) mg/dL AST (15-37) U/L ALT (14-59) U/L Alkaline Phosphatase (46-116) U/L Troponin I (0.000-0.056) ng/mL Total Protein (6.4-8.2) g/dL Albumin (3.4-5.0) g/dL Globulin Albumin/Globulin Ratio Urine Color Yellow (YELLOW) Urine Appearance Turbid (CLEAR) Urine pH 5.5 (5.0-9.0) Ur Specific [place] >= 1.030 (1.005-1.030) Urine Protein 100 H (NEGATIVE) Urine Glucose (UA) Negative (NEGATIVE) Urine Ketones Trace H (NEGATIVE) Urine Occult Blood Small H (NEGATIVE) Urine Nitrite Positive H (NEGATIVE) Urine Bilirubin Negative (NEGATIVE) Urine Urobilinogen 0.2 (0.2-1.0) mg/dL Ur Leukocyte Esterase Small H (NEGATIVE) Urine RBC 5-10 H /HPF Urine WBC >100 H (0-5/HPF) /HPF Ur Epithelial Cells Moderate H (NOT SEEN) /HPF Amorphous Sediment Few (NOT SEEN) /HPF Urine Bacteria Many H (0-FEW/HPF) /HPF Urine Mucus Not seen (NOT SEEN) /LPF 01/11/20 Range/Units 09:27 WBC (5.0-10.0) 10^3/uL RBC (4.2-5.4) 10^6/uL Hgb (12.0-16.0) g/dL Hct (37.0-47.0) % MCV (80-100) fL MCH (27.0-34.0) pg MCHC (33.0-35.0) g/dL Plt Count (150-450) 10^3/uL Neut % (Auto) (42.2-75.2) % Lymph % (Auto) (20.5-50.1) % Door % (Auto) (2-8) % Eos % (Auto) (1.0-3.0) % Baso % (Auto) (0.0-1.0) % Sodium 141 (136-145) mmol/L Potassium 3.3 L (3.5-5.1) mmol/L Chloride 102 (98-107) mmol/L Carbon Dioxide 31 (21-32) mmol/L Anion Gap 11.3 (7-13) mEq/L BUN 18 (7-18) mg/dL Creatinine 0.59 (0.55-1.02) mg/dL Est Cr Clr Drug Dosing 63.48 Estimated GFR (MDRD) > 60 BUN/Creatinine Ratio (No establ ref range) Glucose 101 H (74-99) mg/dL Lactic Acid (0.4-2.0) mmol/L Calcium 8.4 L (8.5-10.1) mg/dL Total Bilirubin (0.2-1.0) mg/dL AST (15-37) U/L ALT (14-59) U/L Alkaline Phosphatase (46-116) U/L Troponin I (0.000-0.056) ng/mL Total Protein (6.4-8.2) g/dL Albumin (3.4-5.0) g/dL Globulin Albumin/Globulin Ratio Urine Color (YELLOW) Urine Appearance (CLEAR) Urine pH (5.0-9.0) Ur Specific [place] (1.005-1.030) Urine Protein (NEGATIVE) Urine Glucose (UA) (NEGATIVE) Urine Ketones (NEGATIVE) Urine Occult Blood (NEGATIVE) Urine Nitrite (NEGATIVE) Urine Bilirubin (NEGATIVE) Urine Urobilinogen (0.2-1.0) mg/dL Ur Leukocyte Esterase (NEGATIVE) Urine RBC /HPF Urine WBC (0-5/HPF) /HPF Ur Epithelial Cells (NOT SEEN) /HPF Amorphous Sediment (NOT SEEN) /HPF Urine Bacteria (0-FEW/HPF) /HPF Urine Mucus (NOT SEEN) /LPF Result Diagrams: 01/11/20 09:27 01/11/20 09:27 - Problem List (1) Toxic encephalopathy SNOMED Code(s): 02823827 ICD Code: G92 - TOXIC ENCEPHALOPATHY Status: Acute Current Visit: Yes Problem List Initiated/Reviewed/Updated: Yes Orders Last 24hrs: Active Orders 24 hr Category Date Time Status Admission Diagnosis [ADT] Urgent ADT 01/11/20 02:49 Ordered Admission Status [Patient Status] [ADT] Routine ADT 01/11/20 02:49 Active Antiembolic Devices [RC] PER UNIT ROUTINE Care 01/11/20 03:32 Active EKG Documentation Completion [RC] URGENT Care 01/11/20 01:43 Inactive Oxygen Therapy [RC] PRN Care 01/11/20 03:31 Active Up With Assistance [RC] ASDIRECTED Care 01/11/20 03:31 Active VTE/DVT Education [RC] PER UNIT ROUTINE Care 01/11/20 03:31 Active Vital Signs [RC] 04,08,12,16,20 Care 01/11/20 03:31 Active Regular Diet [DIET] Diet 01/11/20 Breakfast Active BASIC METABOLIC PANEL,BMP [CHEM] AM Lab 01/12/20 05:15 Ordered CBC WITH AUTO DIFF [HEME] AM Lab 01/12/20 05:15 Ordered CULTURE BLOOD [BC] Stat Lab 01/11/20 01:57 Received CULTURE URINE [RM] Urgent Lab 01/11/20 02:00 Received Acetaminophen [Tylenol] Med 01/11/20 03:31 Active 650 mg PO Q4H PRN Aspirin Med 01/11/20 09:00 Active 81 mg PO DAILY Clopidogrel [Plavix] Med 01/11/20 09:00 Active 75 mg PO DAILY Docusate Sodium [Colace] Med 01/11/20 03:31 Active 100 mg PO BID PRN Heparin Sodium Med 01/11/20 06:00 Active 5,000 units SUBCUT Q8HR LORazepam [Ativan] Med 01/11/20 04:50 Active 1 mg IM Q6H PRN Multivitamins/Minerals [Vitamins and Minerals] Med 01/11/20 09:00 Active 1 tab PO DAILY OLANZapine [ZyPREXA] Med 01/11/20 03:30 Active 5 mg IM Q6H PRN OLANZapine [ZyPREXA] Med 01/11/20 10:30 Active 5 mg PO BID Ondansetron [Zofran ODT] Med 01/11/20 03:31 Active 4 mg PO Q4H PRN Ondansetron [Zofran] Med 01/11/20 03:31 Active 4 mg IVPUSH Q4H PRN Pantoprazole [ProTONIX] Med 01/11/20 06:00 Active 40 mg PO ACBREAKFAST Potassium Chloride [Klor-Con 10] Med 01/11/20 10:30 Once 40 meq PO ONETIME ONE Propranolol [Inderal LA] Med 01/11/20 09:00 Active 60 mg PO DAILY Temazepam [Restoril] Med 01/11/20 03:31 Active 15 mg PO BEDTIME PRN cefTRIAXone [Rocephin] 1 gm Med 01/11/20 18:00 Active Lidocaine 1% [Xylocaine-MPF 1%] 2.1 ml IM Q24H Sequential Compression Device [OM.PC] Per Unit Routine Oth 01/11/20 03:32 Ordered Resuscitation Status Routine Resus Stat 01/11/20 03:31 Ordered Medication Orders Acetaminophen (Tylenol) 650 mg PO Q4H PRN PRN Reason: Pain (Mild 1-3)/fever Aspirin (Aspirin) 81 mg PO DAILY [facility] Clopidogrel Bisulfate (Plavix) 75 mg PO DAILY [facility] Ceftriaxone Sodium 1 gm/ (Lidocaine HCl 2.1 ml) 0 gm IM Q24H [facility] Docusate Sodium (Colace) 100 mg PO BID PRN PRN Reason: Constipation Heparin Sodium (Porcine) (Heparin Sodium) 5,000 units SUBCUT Q8HR [facility] Last Admin: 01/11/20 05:31 Dose: Not Given Lorazepam (Ativan) 1 mg IM Q6H PRN PRN Reason: Agitation Multivitamins/Minerals (Vitamins And Minerals) 1 tab PO DAILY [facility] Olanzapine (Zyprexa) 5 mg IM Q6H PRN PRN Reason: agitation, anxiety Last Admin: 01/11/20 04:00 Dose: 5 mg Olanzapine (Zyprexa) 5 mg PO BID [facility] Ondansetron HCl (Zofran Odt) 4 mg PO Q4H PRN PRN Reason: nausea, able to take PO Ondansetron HCl (Zofran) 4 mg IVPUSH Q4H PRN PRN Reason: Nausea/Vomiting Pantoprazole Sodium (Protonix) 40 mg PO ACBREAKFAST [facility] Last Admin: 01/11/20 05:32 Dose: Not Given Potassium Chloride (Klor-Con 10) 40 meq PO ONETIME ONE Stop: 01/11/20 10:31 Propranolol HCl (Inderal La) 60 mg PO DAILY [facility] Temazepam (Restoril) 15 mg PO BEDTIME PRN PRN Reason: Sleep Assessment/Plan Comment:: 80 yo with h/o dementia, frequent utis, carotid a disease presented with confusion acute toxic - metabolic encephalopathy agitated, aggressive, restless - risk for staff and pt safety likely due to uti will use scheduled olanzapine as needed olanzapine, ativan uti obtain blood cx obtain urine cx start empirical tx with ceftriaxone - use IM preparation since we can not establish and maintain IV line with agitation PAD cont plavix lactic acidosis improved recent head trauma with sutures could not evaluate re: agitation will follow hypokalemia replace as possible recheck in AM dvt prophylaxis with sq heparin
[2020-01-11] MEDS ORDERED: Pantoprazole 40 MG Tab.CR **OWN MED PO SCH (11:46)
[2020-01-11] MEDS: OLANZapine 5 MG Tab PO SCH ×2 (12:03→15:15)
[2020-01-11] MEDS: PROPRANOLOL 60 MG PO SCH ×2 (12:03→15:15)
[2020-01-11] MEDS: Clopidogrel 75 MG Tab**OWN MED PO SCH ×2 (12:03→15:15)
[2020-01-11] MEDS: Aspirin 81 MG Tab.EC**OWN MED PO SCH ×2 (12:03→15:15)
[2020-01-11] MEDS: Potassium Chloride 10 MEQ Tab.ER PO ONE ×2 (13:22→15:54)
[2020-01-11] MEDS: Multivitamins, Therapeutic with Minerals Tab PO SCH ×2 (13:22→15:54)
[2020-01-11] MEDS ORDERED: Water For Injection, Sterile 20 ML ONE (13:30)
[2020-01-11] MEDS ORDERED: cefTRIAXone 1 GM Vial IM SCH (18:00)
[2020-01-11] MEDS ORDERED: cefTRIAXone 1 GM, Lidocaine 1% 2.1 ML IM SCH ×2 (18:00)
[2020-01-11] MEDS ORDERED: Potassium Chloride 10 MEQ Tab.ER PO ONE (21:10)
[2020-01-12] MEDS: Heparin Sodium 5,000 Units/ML Vial SUBCUT SCH ×4 (00:06→21:26)
[2020-01-12] MEDS: OLANZapine 5 MG Tab PO SCH ×5 (01:00→21:37)
[2020-01-12 07:24] LABS: ANION GAP 13.5 mEq/L (7-13); CHLORIDE,CL 105 mmol/L (98-107); SODIUM,NA 142 mmol/L (136-145)
[2020-01-12] MEDS: Multivitamins, Therapeutic with Minerals Tab PO SCH ×2 (11:48→13:45)
[2020-01-12] MEDS ORDERED: Sodium Chloride 0.9% 10 ML Syringe FLUSH PRN (11:52)
--- NOTE | 2020-01-12 11:52 | PCM.PN ---
- General Info Date of Service: 01/12/20 Subjective Update: This morning she is less agitated and actually quite calm. Review of system and history is limited due to patient's inability to give complete answers. No further agitation. Slow to respond, not following commands well. No apparent pain, no fever or chills. Functional Status: Reports: Pain Controlled - Review of Systems General: Denies: Fever Pulmonary: Denies: Shortness of Breath Cardiovascular: Denies: Chest Pain Gastrointestinal: Denies: Abdominal Pain Genitourinary: Denies: Dysuria - Patient Data Vitals - Most Recent: Last Vital Signs Temp 97.8 F 01/12/20 08:00 Pulse 65 01/12/20 08:00 Resp 18 01/12/20 08:00 BP 139/76 01/12/20 08:00 Pulse Ox 99 01/12/20 08:00 Weight - Most Recent: 121 lb 9.6 oz I&O - Last 24 Hours: Intake & Output 01/11/20 01/12/20 01/12/20 22:59 06:59 14:59 Intake Total 50 Output Total 50 200 Balance -50 -150 Lab Results Last 24 Hours: Laboratory Results - last 24 hr 01/12/20 01/12/20 Range/Units 06:25 06:25 WBC 5.5 (5.0-10.0) 10^3/uL RBC 4.09 L (4.2-5.4) 10^6/uL Hgb 12.0 (12.0-16.0) g/dL Hct 37.8 (37.0-47.0) % MCV 92.4 (80-100) fL MCH 29.3 (27.0-34.0) pg MCHC 31.7 L (33.0-35.0) g/dL Plt Count 219 (150-450) 10^3/uL Neut % (Auto) 61.8 (42.2-75.2) % Lymph % (Auto) 18.2 L (20.5-50.1) % [place] % (Auto) 16.1 H (2-8) % Eos % (Auto) 3.3 H (1.0-3.0) % Baso % (Auto) 0.6 (0.0-1.0) % Add Manual Diff Yes Neutrophils % (Manual) 64 (42-75) % Band Neutrophils % 2 % Lymphocytes % (Manual) 18 L (20-50) % Monocytes % (Manual) 14 H (2-8) % Eosinophils % (Manual) 2 (1-3) % Sodium 142 (136-145) mmol/L Potassium 3.5 (3.5-5.1) mmol/L Chloride 105 (98-107) mmol/L Carbon Dioxide 27 (21-32) mmol/L Anion Gap 13.5 H (7-13) mEq/L BUN 19 H (7-18) mg/dL Creatinine 0.69 (0.55-1.02) mg/dL Est Cr Clr Drug Dosing 54.28 mL/min Estimated GFR (MDRD) > 60 Glucose 84 (74-99) mg/dL Calcium 8.3 L (8.5-10.1) mg/dL Jamie Results Last 24 Hours: Microbiology 01/11/20 02:00 Urine Culture - Preliminary Urine, Quick Cath (In-Out) 01/11/20 01:57 Aerobic Blood Culture - Preliminary Blood NO GROWTH AFTER 1 DAY Anaerobic Blood Culture - Preliminary NO GROWTH AFTER 1 DAY Med Orders - Current: Current Medications Acetaminophen (Tylenol) 650 mg PO Q4H PRN PRN Reason: Pain (Mild 1-3)/fever Aspirin (Halfprin) 81 mg PO DAILY [facility] Last Admin: 01/11/20 15:15 Dose: 81 mg Clopidogrel Bisulfate (Plavix) 75 mg PO DAILY [facility] Last Admin: 01/11/20 15:15 Dose: 75 mg Ceftriaxone Sodium 1 gm/ (Lidocaine HCl 2.1 ml) 0 gm IM Q24H [facility] Last Admin: 01/11/20 18:17 Dose: 1 inj Docusate Sodium (Colace) 100 mg PO BID PRN PRN Reason: Constipation Heparin Sodium (Porcine) (Heparin Sodium) 5,000 units SUBCUT Q8HR [facility] Last Admin: 01/12/20 07:11 Dose: Not Given Lorazepam (Ativan) 1 mg IM Q6H PRN PRN Reason: Agitation Multivitamins/Minerals (Vitamins And Minerals) 1 tab PO DAILY [facility] Last Admin: 01/11/20 15:54 Dose: 1 tab Olanzapine (Zyprexa) 5 mg IM Q6H PRN PRN Reason: agitation, anxiety Last Admin: 01/11/20 13:31 Dose: 5 mg Olanzapine (Zyprexa) 5 mg PO BID [facility] Last Admin: 01/12/20 01:08 Dose: Not Given Ondansetron HCl (Zofran Odt) 4 mg PO Q4H PRN PRN Reason: nausea, able to take PO Ondansetron HCl (Zofran) 4 mg IVPUSH Q4H PRN PRN Reason: Nausea/Vomiting Pantoprazole Sodium (Protonix) 40 mg PO ACBREAKFAST [facility] Last Admin: 01/12/20 09:06 Dose: Not Given Propranolol HCl (Inderal La) 60 mg PO DAILY [facility] Last Admin: 01/11/20 15:15 Dose: 60 mg Temazepam (Restoril) 15 mg PO BEDTIME PRN PRN Reason: Sleep Discontinued Medications Aspirin (Aspirin) 81 mg PO DAILY [facility] Last Admin: 01/11/20 15:47 Dose: Not Given Clopidogrel Bisulfate (Plavix) 75 mg PO DAILY [facility] Last Admin: 01/11/20 15:47 Dose: Not Given Ceftriaxone Sodium 1 gm/ (Lidocaine HCl 2.1 ml) 0 gm IM ONETIME ONE Stop: 01/11/20 02:47 Last Admin: 01/11/20 02:51 Dose: 1 inj Sterile Water (Sterile Water For Injection) Confirm Administered Dose 20 mls @ as directed .ROUTE .STK-MED ONE Stop: 01/11/20 13:31 Last Admin: 01/11/20 15:41 Dose: 2.1 mls/hr Pantoprazole Sodium (Protonix) 40 mg PO ACBREAKFAST [facility] Last Admin: 01/11/20 05:32 Dose: Not Given Potassium Chloride (Klor-Con 10) 40 meq PO ONETIME ONE Stop: 01/11/20 10:31 Last Admin: 01/11/20 15:54 Dose: 40 meq Potassium Chloride (Klor-Con 10) 40 meq PO ONETIME ONE Stop: 01/11/20 21:11 Last Admin: 01/12/20 00:11 Dose: Not Given Propranolol HCl (Inderal La) 60 mg PO DAILY [facility] Last Admin: 01/11/20 15:47 Dose: Not Given - Exam General: Alert, Oriented Neck: Supple Lungs: Clear to Auscultation Cardiovascular: Regular Rate, Regular Rhythm GI/Abdominal Exam: Normal Bowel Sounds, Soft, Non-Tender Extremities: No Pedal Edema Neurological: Other (Has been leaning towards the left when getting up with physical therapy on difficult to assess due to poor compliance but appears to move all extremities although generally weak.) Sepsis Event Note - Evaluation Sepsis Screening Result: No Definite Risk - Focused Exam Vital Signs: Vital Signs Temp Pulse Resp BP BP Pulse Ox 01/12/20 08:00 97.8 F 65 18 139/76 99 01/12/20 02:04 98.6 F 78 18 139/79 97 Date Exam was Performed: 01/12/20 Time Exam was Performed: 11:48 - Problem List & Annotations (1) Toxic encephalopathy SNOMED Code(s): 97212721 Code(s): G92 - TOXIC ENCEPHALOPATHY Status: Acute Current Visit: Yes - Problem List Review Problem List Initiated/Reviewed/Updated: Yes - My Orders Last 24 Hours: My Active Orders 01/11/20 11:43 Aspirin [Halfprin] 81 mg PO DAILY 01/11/20 11:44 Propranolol [Inderal LA] 60 mg PO DAILY 01/11/20 11:46 Clopidogrel [Plavix] 75 mg PO DAILY Pantoprazole [ProTONIX] 40 mg PO ACBREAKFAST 01/11/20 18:00 cefTRIAXone [Rocephin] 1 gm Lidocaine 1% [Xylocaine-MPF 1%] 2.1 ml IM Q24H 01/12/20 11:15 OT Evaluation and Treatment [CONS] Routine PT Evaluation and Treatment [CONS] Routine 01/12/20 11:37 Head w wo Cont [CT] Routine 01/12/20 11:38 Patient Status [ADT] Routine - Plan Plan:: 80 yo with h/o dementia, frequent utis, carotid a disease presented with confusion acute toxic - metabolic encephalopathy agitated, aggressive, restless - risk for staff and pt safety likely due to uti Appears improved will continue to use scheduled olanzapine as needed olanzapine, ativan Look for other causes, possible stroke Will obtain CT head with and without contrast uti Pending blood cx Pending urine cx Continue tx with ceftriaxone - will switch to IV now that we can establish IV safely PAD cont plavix lactic acidosis improved recent head trauma with sutures removed sutures hypokalemia improved recheck in AM dvt prophylaxis with sq heparin
--- NOTE | 2020-01-12 13:29 | CT ---
EXAMINATION: Head w wo Cont SEX: Female AGE: 80 years CLINICAL HISTORY: 80-year-old 121 pound "combative" female with left-sided weakness reported on recent CT scan of the head 01 January 2020 (anticoagulated patient fell, hit head) to have "diffuse cerebral atrophy and deep white matter microvascular disease with lacunar infarction left basal ganglia. No intracranial bleed." (Right parietal scalp hematoma with skin stefano) Scan technique: Volume acquisition of data from the head and brain obtained before and during (10 minute delay) intravenous administration 50 cc nonionic Isovue contrast (1 cc/s via injector) while patient was lying supine on the Siemens multislice scanner [place], [place]. All data archived in the PACS system for storage, reformatting axial/sagittal/coronal planes and study (bone/brain windows). Interpretation: Abnormal but unchanged when compared directly to images from previous exam 31 December. Multiple infarcts. 1. Uniformly thick bony calvarium without sign scalp hematoma, skull fracture, underlying brain contusion or abnormal extracerebral/intracranial epidural or subdural hematoma. Symmetric clear pneumatization paranasal and mastoid sinuses. 2. Moderately severe but symmetric cerebral cortical atrophy with underlying mirror-image normal ventricular system. 3. No sign of arteriovascular abnormality i.e. no aneurysm or arteriovenous malformation. No tumoral enhancement. 4. *Multiple areas of decreased attenuation identified scattered throughout the periventricular white matter frontal lobes bilaterally, frontal lobe on the right and both occipital lobes posterior all consistent with multi-infarct ischemic disease. 5. No new signs of supratentorial or posterior fossa mass lesion. 6. Physiologic midline pineal and symmetric choroid plexus calcification. Cerebellum and brainstem unremarkable. 7. No sign of acute intracerebral/intraventricular/subarachnoid bleed. 8. No abnormal extracerebral/intracranial epidural or subdural hematoma. CONCLUSION: Chronic Multi-infarct ischemic disease (unchanged since comparison exam 01 January 2020). No new signs of acute intracranial hemorrhage (bleed), mass or hydrocephalus.
[2020-01-12] MEDS: Aspirin 81 MG Tab.EC**OWN MED PO SCH (13:43)
[2020-01-12] MEDS: Clopidogrel 75 MG Tab**OWN MED PO SCH (13:44)
[2020-01-12] MEDS: PROPRANOLOL 60 MG PO SCH (13:45)
[2020-01-12] MEDS: Iopamidol 612 MG/ML 50 ML SDV IVPUSH ONE ×2 (13:51→15:01)
[2020-01-12] MEDS: cefTRIAXone 1 GM in Sodium Chloride 0.9% 50 ML IV SCH (14:10)
[2020-01-12] MEDS: LORazepam 2 MG/ML SDV IM PRN (15:32)
[2020-01-12] MEDS: OLANZapine 10 MG Vial IM PRN (21:38)
[2020-01-13] MEDS: Pantoprazole 40 MG Tab.CR PO SCH (07:24)
[2020-01-13] MEDS: Heparin Sodium 5,000 Units/ML Vial SUBCUT SCH ×3 (07:24→21:23)
[2020-01-13] MEDS: OLANZapine 10 MG Vial IM PRN (08:28)
[2020-01-13] MEDS: OLANZapine 5 MG Tab PO SCH ×2 (08:30→20:46)
[2020-01-13] MEDS ORDERED: cefTRIAXone 2 GM in Sodium Chloride 0.9% 100 ML IV SCH (09:45)
[2020-01-13] MEDS: LORazepam 2 MG/ML SDV IM PRN (10:06)
[2020-01-13] MEDS: Clopidogrel 75 MG Tab PO SCH (10:16)
[2020-01-13] MEDS: Propranolol 60 MG Cap.ER PO SCH (10:16)
[2020-01-13] MEDS: Aspirin 81 MG Tab.EC PO SCH (10:16)
[2020-01-13] MEDS: Multivitamins, Therapeutic with Minerals Tab PO SCH (10:16)
[2020-01-13] MEDS: Dextrose 5%-0.9% NaCl 1,000 ML IV SCH (11:25)
--- NOTE | 2020-01-13 11:25 | PCM.PN ---
- General Info Date of Service: 01/13/20 Admission Dx/Problem (Free Text): Admission Diagnosis/Problem Admission Diagnosis/Problem Urinary tract infection Subjective Update: Pt was seen in room this morning she is less agitated and actually quite calm and her oral intake is very poor , not responding to any question Review of system and history is limited due to patient's inability to give complete answers. Functional Status: Reports: Ambulating (bed bound), Urinating - Review of Systems General: Reports: Appetite (is poor). Denies: Fever, Chills HEENT: Reports: Other (unable to obtain because of pt condition (not responding to questions)) Pulmonary: Denies: Shortness of Breath, Cough, Wheezing Cardiovascular: Reports: Other (unable to obtain because of pt condition (not responding to questions)) Gastrointestinal: Reports: Other (unable to obtain because of pt condition (not responding to questions)). Denies: Diarrhea, Vomiting Genitourinary: Reports: Other (unable to obtain because of pt condition (not responding to questions)) Skin: Denies: Jaundice, Bruising, Pruritis, Rash Neurological: Reports: Confusion, Other (unable to obtain because of pt condition (not responding to questions)) Psychiatric: Reports: Agitation. Denies: Confusion - Patient Data Vitals - Most Recent: Last Vital Signs Temp 37.2 C 01/13/20 08:00 Pulse 79 01/13/20 08:00 Resp 16 01/13/20 08:00 BP 139/56 L 01/13/20 08:00 Pulse Ox 98 01/13/20 08:00 Weight - Most Recent: 55.157 kg I&O - Last 24 Hours: Intake & Output 01/12/20 01/13/20 01/13/20 22:59 06:59 14:59 Intake Total 50 20 Balance 50 20 Jamie Results Last 24 Hours: Microbiology 01/11/20 02:00 Urine Culture - Preliminary Urine, Quick Cath (In-Out) Escherichia Coli 01/11/20 01:57 Aerobic Blood Culture - Preliminary Blood NO GROWTH AFTER 2 DAYS Anaerobic Blood Culture - Preliminary NO GROWTH AFTER 2 DAYS Med Orders - Current: Current Medications Acetaminophen (Tylenol) 650 mg PO Q4H PRN PRN Reason: Pain (Mild 1-3)/fever Last Admin: 01/13/20 10:07 Dose: 650 mg Aspirin (Halfprin) 81 mg PO DAILY [facility] Last Admin: 01/13/20 10:16 Dose: Not Given Clopidogrel Bisulfate (Plavix) 75 mg PO DAILY [facility] Last Admin: 01/13/20 10:16 Dose: Not Given Docusate Sodium (Colace) 100 mg PO BID PRN PRN Reason: Constipation Heparin Sodium (Porcine) (Heparin Sodium) 5,000 units SUBCUT Q8HR [facility] Last Admin: 01/13/20 07:24 Dose: Not Given Ceftriaxone Sodium 1 gm/ (Sodium Chloride) 50 mls @ 100 mls/hr IV Q24H [facility] Last Admin: 01/12/20 14:10 Dose: 100 mls/hr Dextrose/Sodium Chloride (Dextrose 5%-Normal Saline) 1,000 mls @ 40 mls/hr IV ASDIRECTED [facility] Lorazepam (Ativan) 1 mg IVPUSH Q6H PRN PRN Reason: Agitation Multivitamins/Minerals (Vitamins And Minerals) 1 tab PO DAILY [facility] Last Admin: 01/13/20 10:16 Dose: Not Given Olanzapine (Zyprexa) 5 mg IM Q6H PRN PRN Reason: agitation, anxiety Last Admin: 01/13/20 08:28 Dose: 5 mg Olanzapine (Zyprexa) 5 mg PO BID [facility] Last Admin: 01/13/20 08:30 Dose: Not Given Ondansetron HCl (Zofran Odt) 4 mg PO Q4H PRN PRN Reason: nausea, able to take PO Ondansetron HCl (Zofran) 4 mg IVPUSH Q4H PRN PRN Reason: Nausea/Vomiting Pantoprazole Sodium (Protonix) 40 mg PO ACBREAKFAST [facility] Last Admin: 01/13/20 07:24 Dose: Not Given Propranolol HCl (Inderal La) 60 mg PO DAILY [facility] Last Admin: 01/13/20 10:16 Dose: Not Given Sodium Chloride (Saline Flush) 10 ml FLUSH ASDIRECTED PRN PRN Reason: Keep Vein Open Temazepam (Restoril) 15 mg PO BEDTIME PRN PRN Reason: Sleep Discontinued Medications Aspirin (Aspirin) 81 mg PO DAILY [facility] Last Admin: 01/11/20 15:47 Dose: Not Given Aspirin (Halfprin) 81 mg PO DAILY [facility] Last Admin: 01/12/20 13:43 Dose: 81 mg Clopidogrel Bisulfate (Plavix) 75 mg PO DAILY [facility] Last Admin: 01/11/20 15:47 Dose: Not Given Clopidogrel Bisulfate (Plavix) 75 mg PO DAILY [facility] Last Admin: 01/12/20 13:44 Dose: 75 mg Ceftriaxone Sodium 1 gm/ (Lidocaine HCl 2.1 ml) 0 gm IM ONETIME ONE Stop: 01/11/20 02:47 Last Admin: 01/11/20 02:51 Dose: 1 inj Ceftriaxone Sodium 1 gm/ (Lidocaine HCl 2.1 ml) 0 gm IM Q24H [facility] Last Admin: 01/11/20 18:17 Dose: 1 inj Sterile Water (Sterile Water For Injection) Confirm Administered Dose 20 mls @ as directed .ROUTE .STK-MED ONE Stop: 01/11/20 13:31 Last Admin: 01/11/20 15:41 Dose: 2.1 mls/hr Ceftriaxone Sodium 2 gm/ (Sodium Chloride) 100 mls @ 200 mls/hr IV Q24H [facility] Iopamidol (Isovue-300 (61%)) 50 ml IVPUSH ONETIME ONE Stop: 01/12/20 12:44 Last Admin: 01/12/20 15:01 Dose: 50 ml Lorazepam (Ativan) 1 mg IM Q6H PRN PRN Reason: Agitation Last Admin: 01/13/20 10:06 Dose: 1 mg Pantoprazole Sodium (Protonix) 40 mg PO ACBREAKFAST [facility] Last Admin: 01/11/20 05:32 Dose: Not Given Pantoprazole Sodium (Protonix) 40 mg PO ACBREAKFAST [facility] Last Admin: 01/12/20 09:06 Dose: Not Given Potassium Chloride (Klor-Con 10) 40 meq PO ONETIME ONE Stop: 01/11/20 10:31 Last Admin: 01/11/20 15:54 Dose: 40 meq Potassium Chloride (Klor-Con 10) 40 meq PO ONETIME ONE Stop: 01/11/20 21:11 Last Admin: 01/12/20 00:11 Dose: Not Given Propranolol HCl (Inderal La) 60 mg PO DAILY [facility] Last Admin: 01/11/20 15:47 Dose: Not Given Propranolol HCl (Inderal La) 60 mg PO DAILY [facility] Last Admin: 01/12/20 13:45 Dose: 60 mg - Exam Quality Assessment: DVT Prophylaxis. No: Supplemental Oxygen, Urine Catheter General: Alert, Cooperative, No Acute Distress. No: Oriented HEENT: Pupils Equal, Other (dry oral mucosa) Neck: Supple. No: No JVD, No Thyromegaly Lungs: Clear to Auscultation, Normal Respiratory Effort. No: Crackles, Wheezing Cardiovascular: Murmurs. No: Regular Rate, Regular Rhythm GI/Abdominal Exam: Normal Bowel Sounds, Soft, No Distention (Female) Exam: Deferred Back Exam: Normal Inspection Extremities: Normal Inspection, No Pedal Edema Skin: Warm, Dry, Intact Neurological: No New Focal Deficit, Other Psy/Mental Status: Alert, Agitated Sepsis Event Note - Evaluation Sepsis Screening Result: No Definite Risk - Focused Exam Vital Signs: Vital Signs Temp Pulse Resp BP Pulse Ox 01/13/20 08:00 37.2 C 79 16 139/56 L 98 Date Exam was Performed: 01/13/20 Time Exam was Performed: 11:20 - Problem List Review Problem List Initiated/Reviewed/Updated: Yes - My Orders Last 24 Hours: My Active Orders 01/13/20 10:16 LORazepam [Ativan] 1 mg IVPUSH Q6H PRN 01/13/20 11:15 Dextrose 5%-0.9% NaCl [Dextrose 5%-Normal Saline] 1,000 ml IV ASDIRECTED - Plan Plan:: 80 yo with h/o dementia, frequent utis, carotid disease presented with confusion Impression and Plan: 1. acute toxic - metabolic encephalopathy agitated, aggressive, restless - risk for staff and pt safety - It is likely due to uti - It has improved will continue to use scheduled olanzapine and as needed olanzapine, and ativan Look for other causes, possible stroke CT head showed no acute intraventricular, subarachnoid, intercerebral bleeding 2. UTI cultrure came back and it is E.Coli -Continue tx with ceftriaxone 1 gm IV daily 3, PAD cont plavix 4. Recent head trauma with sutures - removed sutures 5. hypokalemia: has received supplement and potassium is acceptable recheck in AM dvt prophylaxis : with sq heparin
[2020-01-13] MEDS: cefTRIAXone 1 GM in Sodium Chloride 0.9% 50 ML IV SCH (11:27)
[2020-01-13] MEDS: LORazepam 2 MG/ML SDV IVPUSH PRN (21:25)
[2020-01-14] MEDS: LORazepam 2 MG/ML SDV IVPUSH PRN ×2 (03:41→10:22)
[2020-01-14] MEDS: OLANZapine 10 MG Vial IM PRN (05:05)
[2020-01-14] MEDS: Heparin Sodium 5,000 Units/ML Vial SUBCUT SCH ×2 (07:25→14:28)
[2020-01-14] MEDS: Pantoprazole 40 MG Tab.CR PO SCH (07:25)
[2020-01-14] MEDS: OLANZapine 5 MG Tab PO SCH ×2 (08:02→21:16)
[2020-01-14] MEDS: Aspirin 81 MG Tab.EC PO SCH (10:49)
[2020-01-14] MEDS: Clopidogrel 75 MG Tab PO SCH (10:49)
[2020-01-14] MEDS: Propranolol 60 MG Cap.ER PO SCH (10:49)
[2020-01-14] MEDS: Multivitamins, Therapeutic with Minerals Tab PO SCH (10:50)
[2020-01-14] MEDS: Dextrose 5%-0.9% NaCl 1,000 ML IV SCH (12:15)
[2020-01-14] MEDS: cefTRIAXone 1 GM in Sodium Chloride 0.9% 50 ML IV SCH (12:19)
--- NOTE | 2020-01-14 12:33 | PCM.PN ---
- General Info Date of Service: 01/14/20 Admission Dx/Problem (Free Text): Admission Diagnosis/Problem Admission Diagnosis/Problem Urinary tract infection Subjective Update: Pt was seen in room this morning she is less agitated and actually quite calm and her oral intake is very poor , not responding to any question Review of system and history is limited due to patient's inability to give complete answers. she is too sleepy Functional Status: Reports: Tolerating Diet (not on any oral feeding), Urinating - Review of Systems General: Reports: Appetite (has no appetite). Denies: Fever, Chills HEENT: Reports: Other (unable to obatin because she is not responding to any question) Pulmonary: Denies: Shortness of Breath, Wheezing Cardiovascular: Reports: No Symptoms Gastrointestinal: Reports: Other (unable to obatin because she is not responding to any question) Genitourinary: Reports: Other (unable to obatin because she is not responding to any question) Musculoskeletal: Reports: Other (unable to obatin because she is not responding to any question) Skin: Denies: Bruising, Pruritis, Rash Neurological: Reports: Confusion Psychiatric: Reports: Confusion - Patient Data Vitals - Most Recent: Last Vital Signs Temp 37.3 C 01/14/20 12:00 Pulse 100 01/14/20 12:00 Resp 22 H 01/14/20 12:00 BP 173/82 H 01/14/20 12:00 Pulse Ox 98 01/14/20 12:00 Weight - Most Recent: 55.157 kg I&O - Last 24 Hours: Intake & Output 01/13/20 01/14/20 01/14/20 22:59 06:59 14:59 Intake Total 20 Balance 20 Jamie Results Last 24 Hours: Microbiology 01/11/20 02:00 Urine Culture - Final Urine, Quick Cath (In-Out) Escherichia Coli 01/11/20 01:57 Aerobic Blood Culture - Preliminary Blood NO GROWTH AFTER 3 DAYS Anaerobic Blood Culture - Preliminary NO GROWTH AFTER 3 DAYS Med Orders - Current: Current Medications Acetaminophen (Tylenol) 650 mg PO Q4H PRN PRN Reason: Pain (Mild 1-3)/fever Last Admin: 01/13/20 10:07 Dose: 650 mg Aspirin (Halfprin) 81 mg PO DAILY [facility] Last Admin: 01/14/20 10:49 Dose: Not Given Clopidogrel Bisulfate (Plavix) 75 mg PO DAILY [facility] Last Admin: 01/14/20 10:49 Dose: Not Given Docusate Sodium (Colace) 100 mg PO BID PRN PRN Reason: Constipation Heparin Sodium (Porcine) (Heparin Sodium) 5,000 units SUBCUT Q8HR [facility] Last Admin: 01/14/20 07:25 Dose: Not Given Ceftriaxone Sodium 1 gm/ (Sodium Chloride) 50 mls @ 100 mls/hr IV Q24H [facility] Last Admin: 01/14/20 12:19 Dose: 100 mls/hr Dextrose/Sodium Chloride (Dextrose 5%-Normal Saline) 1,000 mls @ 40 mls/hr IV ASDIRECTED [facility] Last Admin: 01/14/20 12:15 Dose: 40 mls/hr Lorazepam (Ativan) 1 mg IVPUSH Q6H PRN PRN Reason: Agitation Last Admin: 01/14/20 10:22 Dose: 1 mg Multivitamins/Minerals (Vitamins And Minerals) 1 tab PO DAILY [facility] Last Admin: 01/14/20 10:50 Dose: Not Given Olanzapine (Zyprexa) 5 mg IM Q6H PRN PRN Reason: agitation, anxiety Last Admin: 01/14/20 05:05 Dose: 5 mg Olanzapine (Zyprexa) 5 mg PO BID [facility] Last Admin: 01/14/20 08:02 Dose: 5 mg Ondansetron HCl (Zofran Odt) 4 mg PO Q4H PRN PRN Reason: nausea, able to take PO Ondansetron HCl (Zofran) 4 mg IVPUSH Q4H PRN PRN Reason: Nausea/Vomiting Pantoprazole Sodium (Protonix) 40 mg PO ACBREAKFAST [facility] Last Admin: 01/14/20 07:25 Dose: Not Given Propranolol HCl (Inderal La) 60 mg PO DAILY [facility] Last Admin: 01/14/20 10:49 Dose: Not Given Sodium Chloride (Saline Flush) 10 ml FLUSH ASDIRECTED PRN PRN Reason: Keep Vein Open Temazepam (Restoril) 15 mg PO BEDTIME PRN PRN Reason: Sleep Discontinued Medications Aspirin (Aspirin) 81 mg PO DAILY [facility] Last Admin: 01/11/20 15:47 Dose: Not Given Aspirin (Halfprin) 81 mg PO DAILY [facility] Last Admin: 01/12/20 13:43 Dose: 81 mg Clopidogrel Bisulfate (Plavix) 75 mg PO DAILY [facility] Last Admin: 01/11/20 15:47 Dose: Not Given Clopidogrel Bisulfate (Plavix) 75 mg PO DAILY [facility] Last Admin: 01/12/20 13:44 Dose: 75 mg Ceftriaxone Sodium 1 gm/ (Lidocaine HCl 2.1 ml) 0 gm IM ONETIME ONE Stop: 01/11/20 02:47 Last Admin: 01/11/20 02:51 Dose: 1 inj Ceftriaxone Sodium 1 gm/ (Lidocaine HCl 2.1 ml) 0 gm IM Q24H [facility] Last Admin: 01/11/20 18:17 Dose: 1 inj Sterile Water (Sterile Water For Injection) Confirm Administered Dose 20 mls @ as directed .ROUTE .STK-MED ONE Stop: 01/11/20 13:31 Last Admin: 01/11/20 15:41 Dose: 2.1 mls/hr Ceftriaxone Sodium 2 gm/ (Sodium Chloride) 100 mls @ 200 mls/hr IV Q24H [facility] Last Admin: 01/13/20 12:34 Dose: Not Given Iopamidol (Isovue-300 (61%)) 50 ml IVPUSH ONETIME ONE Stop: 01/12/20 12:44 Last Admin: 01/12/20 15:01 Dose: 50 ml Lorazepam (Ativan) 1 mg IM Q6H PRN PRN Reason: Agitation Last Admin: 01/13/20 10:06 Dose: 1 mg Pantoprazole Sodium (Protonix) 40 mg PO ACBREAKFAST [facility] Last Admin: 01/11/20 05:32 Dose: Not Given Pantoprazole Sodium (Protonix) 40 mg PO ACBREAKFAST [facility] Last Admin: 01/12/20 09:06 Dose: Not Given Potassium Chloride (Klor-Con 10) 40 meq PO ONETIME ONE Stop: 01/11/20 10:31 Last Admin: 01/11/20 15:54 Dose: 40 meq Potassium Chloride (Klor-Con 10) 40 meq PO ONETIME ONE Stop: 01/11/20 21:11 Last Admin: 01/12/20 00:11 Dose: Not Given Propranolol HCl (Inderal La) 60 mg PO DAILY [facility] Last Admin: 01/11/20 15:47 Dose: Not Given Propranolol HCl (Inderal La) 60 mg PO DAILY [facility] Last Admin: 01/12/20 13:45 Dose: 60 mg - Exam Quality Assessment: DVT Prophylaxis. No: Supplemental Oxygen, Urine Catheter General: No Acute Distress, Other (unable to obatin because she is not responding to any question) HEENT: Pupils Equal, Mucous Membr. Moist/[place] Neck: Supple, No JVD, No Thyromegaly Lungs: Clear to Auscultation, Normal Respiratory Effort Cardiovascular: Regular Rate, Regular Rhythm, Murmurs GI/Abdominal Exam: Normal Bowel Sounds, Soft, No Distention (Female) Exam: Deferred Back Exam: Normal Inspection Extremities: Normal Inspection, No Pedal Edema Skin: Warm, Dry, Intact Neurological: No New Focal Deficit Psy/Mental Status: Other (unable to obatin because she is not responding to any question) Sepsis Event Note - Evaluation Sepsis Screening Result: No Definite Risk - Focused Exam Vital Signs: Vital Signs Temp Pulse Resp BP Pulse Ox 01/14/20 12:00 37.3 C 100 22 H 173/82 H 98 01/14/20 10:43 37.4 C 116 H 16 180/88 H 96 Date Exam was Performed: 01/14/20 Time Exam was Performed: 12:28 - Problem List Review Problem List Initiated/Reviewed/Updated: Yes - My Orders Last 24 Hours: My Active Orders 01/13/20 12:48 Antiembolic Devices [RC] - Plan Plan:: 80 yo with h/o dementia, frequent utis, carotid disease presented with confusion Impression and Plan: 1. acute toxic - metabolic encephalopathy agitated, aggressive, restless - risk for staff and pt safety - It is likely due to uti - It has improved will continue to use scheduled olanzapine and as needed olanzapine, and ativan -Looked for other causes, possible stroke CT head showed no acute intraventricular, subarachnoid, intercerebral bleeding 2. UTI cultrure came back and it is E.Coli -Continue tx with ceftriaxone 1 gm IV daily 3, PAD cont plavix 4. Recent head trauma with sutures - removed sutures 5. hypokalemia: has received supplement and potassium is acceptable recheck in AM 6. Nutrition: She has no oral intake and will contine D5 NS at 40 ml/hr, if not improving will need discuss with family about Tude feeding dvt prophylaxis : with sq heparin
[2020-01-14] MEDS ORDERED: Acetaminophen 650 MG Supp RECTAL PRN (14:30)
[2020-01-15] MEDS: LORazepam 2 MG/ML SDV IVPUSH PRN ×4 (00:25→21:27)
[2020-01-15] MEDS: Heparin Sodium 5,000 Units/ML Vial SUBCUT SCH ×3 (00:26→16:03)
[2020-01-15] MEDS: Pantoprazole 40 MG Tab.CR PO SCH (06:39)
[2020-01-15] MEDS: Clopidogrel 75 MG Tab PO SCH (09:39)
[2020-01-15] MEDS: Aspirin 81 MG Tab.EC PO SCH (09:39)
[2020-01-15] MEDS: Multivitamins, Therapeutic with Minerals Tab PO SCH (09:39)
[2020-01-15] MEDS: OLANZapine 5 MG Tab PO SCH (09:40)
[2020-01-15] MEDS: Metoprolol Tartrate 5 MG/5 ML SDV IVPUSH SCH ×2 (10:32→16:03)
[2020-01-15] MEDS: cefTRIAXone 1 GM in Sodium Chloride 0.9% 50 ML IV SCH (12:03)
--- NOTE | 2020-01-15 12:17 | PCM.PN ---
- General Info Date of Service: 01/15/20 Admission Dx/Problem (Free Text): Admission Diagnosis/Problem Admission Diagnosis/Problem Urinary tract infection Subjective Update: Pt was seen in room this morning she continues to have on/off agitation she is generally poorly responsive, not eating, not talking,no following commands with episodes of screaming out, not understandable, no oral intake, difficulty administering meds Review of system and history is limited due to patient's inability to give complete answers. - Review of Systems General: Denies: Fever Pulmonary: Denies: Shortness of Breath Cardiovascular: Denies: Chest Pain, Edema Neurological: Reports: Confusion - Patient Data Vitals - Most Recent: Last Vital Signs Temp 99.2 F 01/15/20 11:32 Pulse 81 01/15/20 11:32 Resp 20 01/15/20 11:32 BP 137/106 H 01/15/20 10:32 Pulse Ox 98 01/15/20 11:32 Weight - Most Recent: 121 lb 9.6 oz Jamie Results Last 24 Hours: Microbiology 01/11/20 01:57 Aerobic Blood Culture - Preliminary Blood NO GROWTH AFTER 4 DAYS Anaerobic Blood Culture - Preliminary NO GROWTH AFTER 4 DAYS 01/11/20 02:00 Urine Culture - Final Urine, Quick Cath (In-Out) Escherichia Coli Med Orders - Current: Current Medications Acetaminophen (Tylenol) 650 mg PO Q4H PRN PRN Reason: Pain (Mild 1-3)/fever Last Admin: 01/13/20 10:07 Dose: 650 mg Acetaminophen (Tylenol) 650 mg RECTAL Q6H PRN PRN Reason: Pain or Fever Last Admin: 01/14/20 14:59 Dose: 650 mg Aspirin (Halfprin) 81 mg PO DAILY [facility] Last Admin: 01/15/20 09:39 Dose: Not Given Clopidogrel Bisulfate (Plavix) 75 mg PO DAILY [facility] Last Admin: 01/15/20 09:39 Dose: Not Given Docusate Sodium (Colace) 100 mg PO BID PRN PRN Reason: Constipation Heparin Sodium (Porcine) (Heparin Sodium) 5,000 units SUBCUT Q8HR [facility] Last Admin: 01/15/20 06:38 Dose: Not Given Ceftriaxone Sodium 1 gm/ (Sodium Chloride) 50 mls @ 100 mls/hr IV Q24H [facility] Last Admin: 01/15/20 12:03 Dose: 100 mls/hr Dextrose/Sodium Chloride (Dextrose 5%-Normal Saline) 1,000 mls @ 40 mls/hr IV ASDIRECTED [facility] Last Admin: 01/14/20 12:15 Dose: 40 mls/hr Lorazepam (Ativan) 1 mg IVPUSH Q6H PRN PRN Reason: Agitation Last Admin: 01/15/20 07:33 Dose: 1 mg Metoprolol Tartrate (Lopressor) 5 mg IVPUSH Q8HR [facility] Last Admin: 01/15/20 10:32 Dose: 5 mg Multivitamins/Minerals (Vitamins And Minerals) 1 tab PO DAILY [facility] Last Admin: 01/15/20 09:39 Dose: Not Given Olanzapine (Zyprexa) 5 mg IM Q6H PRN PRN Reason: agitation, anxiety Last Admin: 01/14/20 05:05 Dose: 5 mg Ondansetron HCl (Zofran Odt) 4 mg PO Q4H PRN PRN Reason: nausea, able to take PO Ondansetron HCl (Zofran) 4 mg IVPUSH Q4H PRN PRN Reason: Nausea/Vomiting Pantoprazole Sodium (Protonix) 40 mg PO ACBREAKFAST [facility] Last Admin: 01/15/20 06:39 Dose: Not Given Sodium Chloride (Saline Flush) 10 ml FLUSH ASDIRECTED PRN PRN Reason: Keep Vein Open Temazepam (Restoril) 15 mg PO BEDTIME PRN PRN Reason: Sleep Discontinued Medications Aspirin (Aspirin) 81 mg PO DAILY [facility] Last Admin: 01/11/20 15:47 Dose: Not Given Aspirin (Halfprin) 81 mg PO DAILY [facility] Last Admin: 01/12/20 13:43 Dose: 81 mg Clopidogrel Bisulfate (Plavix) 75 mg PO DAILY [facility] Last Admin: 01/11/20 15:47 Dose: Not Given Clopidogrel Bisulfate (Plavix) 75 mg PO DAILY [facility] Last Admin: 01/12/20 13:44 Dose: 75 mg Ceftriaxone Sodium 1 gm/ (Lidocaine HCl 2.1 ml) 0 gm IM ONETIME ONE Stop: 01/11/20 02:47 Last Admin: 01/11/20 02:51 Dose: 1 inj Ceftriaxone Sodium 1 gm/ (Lidocaine HCl 2.1 ml) 0 gm IM Q24H [facility] Last Admin: 01/11/20 18:17 Dose: 1 inj Sterile Water (Sterile Water For Injection) Confirm Administered Dose 20 mls @ as directed .ROUTE .STK-MED ONE Stop: 01/11/20 13:31 Last Admin: 01/11/20 15:41 Dose: 2.1 mls/hr Ceftriaxone Sodium 2 gm/ (Sodium Chloride) 100 mls @ 200 mls/hr IV Q24H [facility] Last Admin: 01/13/20 12:34 Dose: Not Given Iopamidol (Isovue-300 (61%)) 50 ml IVPUSH ONETIME ONE Stop: 01/12/20 12:44 Last Admin: 01/12/20 15:01 Dose: 50 ml Lorazepam (Ativan) 1 mg IM Q6H PRN PRN Reason: Agitation Last Admin: 01/13/20 10:06 Dose: 1 mg Olanzapine (Zyprexa) 5 mg PO BID [facility] Last Admin: 01/15/20 09:40 Dose: Not Given Pantoprazole Sodium (Protonix) 40 mg PO ACBREAKFAST [facility] Last Admin: 01/11/20 05:32 Dose: Not Given Pantoprazole Sodium (Protonix) 40 mg PO ACBREAKFAST [facility] Last Admin: 01/12/20 09:06 Dose: Not Given Potassium Chloride (Klor-Con 10) 40 meq PO ONETIME ONE Stop: 01/11/20 10:31 Last Admin: 01/11/20 15:54 Dose: 40 meq Potassium Chloride (Klor-Con 10) 40 meq PO ONETIME ONE Stop: 01/11/20 21:11 Last Admin: 01/12/20 00:11 Dose: Not Given Propranolol HCl (Inderal La) 60 mg PO DAILY [facility] Last Admin: 01/11/20 15:47 Dose: Not Given Propranolol HCl (Inderal La) 60 mg PO DAILY [facility] Last Admin: 01/12/20 13:45 Dose: 60 mg Propranolol HCl (Inderal La) 60 mg PO DAILY [facility] Last Admin: 01/14/20 10:49 Dose: Not Given - Exam General: Oriented, No Acute Distress, Lethargic. No: Alert, Cooperative Neck: Supple Lungs: Clear to Auscultation Cardiovascular: Regular Rate, Regular Rhythm GI/Abdominal Exam: Normal Bowel Sounds, Soft, Non-Tender Extremities: No Pedal Edema, Other (no apparent pain when moving extremities) Neurological: No New Focal Deficit (but difficult to say since she is not following commands) Psy/Mental Status: Agitated (episodically) Sepsis Event Note - Evaluation Sepsis Screening Result: No Definite Risk - Focused Exam Vital Signs: Vital Signs Temp Pulse Pulse Resp BP Pulse Ox 01/15/20 11:32 99.2 F 81 20 98 01/15/20 10:32 118 H 137/106 H 01/15/20 07:35 98.5 F 118 H 20 96 Date Exam was Performed: 01/15/20 Time Exam was Performed: 12:09 - Problem List & Annotations (1) Toxic encephalopathy SNOMED Code(s): 88993261 Code(s): G92 - TOXIC ENCEPHALOPATHY Status: Acute Current Visit: Yes (2) UTI, Urinary tract infectious disease SNOMED Code(s): 98604689 Code(s): N39.0 - URINARY TRACT INFECTION, SITE NOT SPECIFIED Status: Acute Current Visit: No - Problem List Review Problem List Initiated/Reviewed/Updated: Yes - My Orders Last 24 Hours: My Active Orders 01/15/20 08:30 Metoprolol Tartrate [Lopressor] 5 mg IVPUSH Q8HR 01/15/20 12:02 BASIC METABOLIC PANEL,BMP [CHEM] Routine CBC WITH AUTO DIFF [HEME] Routine 01/16/20 05:15 BASIC METABOLIC PANEL,BMP [CHEM] AM CBC WITH AUTO DIFF [HEME] AM - Plan Plan:: 80 yo with h/o dementia, frequent utis, carotid disease presented with confusion Impression and Plan: 1. acute toxic - metabolic encephalopathy agitated, aggressive, restless initially, now calmer but either not responding or screaming - It is likely due to uti - It has improved but now stabilized will try to stop scheduled olanzapine to see if alertness and awareness improves cont but try to minimize as needed olanzapine, and ativan for agitation episodes -Looked for other causes, possible stroke CT head showed no acute intraventricular, subarachnoid, intercerebral bleeding 2. UTI cultrure came back and it is E.Coli sens to ceftriaxone -Continue tx with ceftriaxone 1 gm IV daily (01/10- 3, PAD cont plavix 4. Recent head trauma with sutures - removed sutures 5. hypokalemia: has received supplement recheck today 6. Nutrition: She has no oral intake and will contine D5 NS at 40 ml/hr, when family comes will need discuss with Tude feeding and goals of care try to switch meds to IV dvt prophylaxis : with sq heparin
[2020-01-15] MEDS ORDERED: Benzocaine/Docusate Sodium 20-283 MG/5 ML Enema RECTAL PRN (12:55)
[2020-01-15] MEDS: Dextrose 5%-0.9% NaCl 1,000 ML IV SCH (13:11)
[2020-01-15 13:32] LABS: ANION GAP 14.4 mEq/L (7-13); CHLORIDE,CL 105 mmol/L (98-107); SODIUM,NA 143 mmol/L (136-145)
[2020-01-15] MEDS ORDERED: LORazepam 1 MG Tab PO PRN (16:04)
[2020-01-15] MEDS ORDERED: LORazepam 0.5 MG Tab PO PRN (21:08)
[2020-01-15] MEDS: Morphine 10 MG/0.5 ML Oral Syringe SL PRN (21:27)
[2020-01-16 07:58] VITALS: PULSE 105
[2020-01-16] MEDS: LORazepam 2 MG/ML SDV IVPUSH PRN ×2 (08:29→14:07)
[2020-01-16] MEDS: Morphine 10 MG/0.5 ML Oral Syringe SL PRN ×2 (08:30→14:07)
[2020-01-16 09:29] VITALS: BP 146/79
--- NOTE | 2020-01-16 10:47 | PCM.PN ---
- General Info Date of Service: 01/16/20 Admission Dx/Problem (Free Text): Admission Diagnosis/Problem Admission Diagnosis/Problem Urinary tract infection Subjective Update: 80-year-old presented with confusion, agitation. She was found to have urinary tract infection. CT Of the head showed no acute stroke Despite treatment of urinary tract infection the patient's mental status did not improve. She was agitated, confused, disoriented. On 14 January after a family conference the 3 sons decided to change the goals of care to comfort care only Overnight the patient has been receiving Ativan and morphine. It appears that she can be made comfortable with oral crushed Ativan. Review of system and history is limited due to patient's inability to give complete answers. Functional Status: Reports: Pain Controlled. Denies: Tolerating Diet - Review of Systems Neurological: Reports: Confusion - Patient Data Vitals - Most Recent: Last Vital Signs Temp 98.3 F 01/16/20 07:58 Pulse 105 H 01/16/20 07:58 Resp 20 01/16/20 07:58 BP 146/79 H 01/16/20 09:29 Pulse Ox 96 01/16/20 07:58 Weight - Most Recent: 121 lb 9.6 oz I&O - Last 24 Hours: Intake & Output 01/15/20 01/16/20 01/16/20 22:59 06:59 14:59 Intake Total 0 Output Total 160 Balance -160 Lab Results Last 24 Hours: Laboratory Results - last 24 hr 01/15/20 01/15/20 Range/Units 13:03 13:03 WBC 5.2 (5.0-10.0) 10^3/uL RBC 4.64 (4.2-5.4) 10^6/uL Hgb 13.8 D (12.0-16.0) g/dL Hct 42.1 (37.0-47.0) % MCV 90.7 (80-100) fL MCH 29.7 (27.0-34.0) pg MCHC 32.8 L (33.0-35.0) g/dL Plt Count 216 (150-450) 10^3/uL Neut % (Auto) 65.5 (42.2-75.2) % Lymph % (Auto) 20.4 L (20.5-50.1) % [place] % (Auto) 10.2 H (2-8) % Eos % (Auto) 3.7 H (1.0-3.0) % Baso % (Auto) 0.2 (0.0-1.0) % Sodium 143 (136-145) mmol/L Potassium 3.4 L (3.5-5.1) mmol/L Chloride 105 (98-107) mmol/L Carbon Dioxide 27 (21-32) mmol/L Anion Gap 14.4 H (7-13) mEq/L BUN 15 (7-18) mg/dL Creatinine 0.53 L (0.55-1.02) mg/dL Est Cr Clr Drug Dosing 70.67 mL/min Estimated GFR (MDRD) > 60 Glucose 112 H (74-99) mg/dL Calcium 8.3 L (8.5-10.1) mg/dL Jamie Results Last 24 Hours: Microbiology 01/11/20 01:57 Aerobic Blood Culture - Final Blood NO GROWTH AFTER 5 DAYS Anaerobic Blood Culture - Final NO GROWTH AFTER 5 DAYS Med Orders - Current: Current Medications Acetaminophen (Tylenol) 650 mg PO Q4H PRN PRN Reason: Pain (Mild 1-3)/fever Last Admin: 01/13/20 10:07 Dose: 650 mg Acetaminophen (Tylenol) 650 mg RECTAL Q6H PRN PRN Reason: Pain or Fever Last Admin: 01/14/20 14:59 Dose: 650 mg Docusate Sodium (Colace) 100 mg PO BID PRN PRN Reason: Constipation Docusate Sodium/Benzocaine (Enemeez Plus Mini Enema) 1 each RECTAL BID PRN PRN Reason: Constipation Last Admin: 01/15/20 21:29 Dose: 1 each Lorazepam (Ativan) 1 mg PO Q4H PRN PRN Reason: anxiety, agitation, discomfort Lorazepam (Ativan) 1 mg IVPUSH Q4H PRN PRN Reason: comfort Last Admin: 01/16/20 08:29 Dose: 1 mg Morphine Sulfate (Morphine 10 Mg/0.5 Ml Oral Syringe) 5 mg SL Q4H PRN PRN Reason: Pain Last Admin: 01/16/20 08:30 Dose: 5 mg Olanzapine (Zyprexa) 5 mg IM Q6H PRN PRN Reason: agitation, anxiety Last Admin: 01/14/20 05:05 Dose: 5 mg Ondansetron HCl (Zofran Odt) 4 mg PO Q4H PRN PRN Reason: nausea, able to take PO Ondansetron HCl (Zofran) 4 mg IVPUSH Q4H PRN PRN Reason: Nausea/Vomiting Sodium Chloride (Saline Flush) 10 ml FLUSH ASDIRECTED PRN PRN Reason: Keep Vein Open Discontinued Medications Aspirin (Aspirin) 81 mg PO DAILY [facility] Last Admin: 01/11/20 15:47 Dose: Not Given Aspirin (Halfprin) 81 mg PO DAILY [facility] Last Admin: 01/12/20 13:43 Dose: 81 mg Aspirin (Halfprin) 81 mg PO DAILY [facility] Last Admin: 01/15/20 09:39 Dose: Not Given Clopidogrel Bisulfate (Plavix) 75 mg PO DAILY [facility] Last Admin: 01/11/20 15:47 Dose: Not Given Clopidogrel Bisulfate (Plavix) 75 mg PO DAILY [facility] Last Admin: 01/12/20 13:44 Dose: 75 mg Clopidogrel Bisulfate (Plavix) 75 mg PO DAILY [facility] Last Admin: 01/15/20 09:39 Dose: Not Given Ceftriaxone Sodium 1 gm/ (Lidocaine HCl 2.1 ml) 0 gm IM ONETIME ONE Stop: 01/11/20 02:47 Last Admin: 01/11/20 02:51 Dose: 1 inj Ceftriaxone Sodium 1 gm/ (Lidocaine HCl 2.1 ml) 0 gm IM Q24H [facility] Last Admin: 01/11/20 18:17 Dose: 1 inj Heparin Sodium (Porcine) (Heparin Sodium) 5,000 units SUBCUT Q8HR [facility] Last Admin: 01/15/20 16:03 Dose: Not Given Sterile Water (Sterile Water For Injection) Confirm Administered Dose 20 mls @ as directed .ROUTE .STK-MED ONE Stop: 01/11/20 13:31 Last Admin: 01/11/20 15:41 Dose: 2.1 mls/hr Ceftriaxone Sodium 1 gm/ (Sodium Chloride) 50 mls @ 100 mls/hr IV Q24H [facility] Last Admin: 01/15/20 12:03 Dose: 100 mls/hr Ceftriaxone Sodium 2 gm/ (Sodium Chloride) 100 mls @ 200 mls/hr IV Q24H [facility] Last Admin: 01/13/20 12:34 Dose: Not Given Dextrose/Sodium Chloride (Dextrose 5%-Normal Saline) 1,000 mls @ 40 mls/hr IV ASDIRECTED [facility] Last Admin: 01/15/20 13:11 Dose: 40 mls/hr Iopamidol (Isovue-300 (61%)) 50 ml IVPUSH ONETIME ONE Stop: 01/12/20 12:44 Last Admin: 01/12/20 15:01 Dose: 50 ml Lorazepam (Ativan) 1 mg IM Q6H PRN PRN Reason: Agitation Last Admin: 01/13/20 10:06 Dose: 1 mg Lorazepam (Ativan) 1 mg IVPUSH Q6H PRN PRN Reason: Agitation Last Admin: 01/15/20 16:21 Dose: 1 mg Lorazepam (Ativan) 1 mg PO Q4H PRN PRN Reason: Agitation Metoprolol Tartrate (Lopressor) 5 mg IVPUSH Q8HR [facility] Last Admin: 01/15/20 16:03 Dose: Not Given Multivitamins/Minerals (Vitamins And Minerals) 1 tab PO DAILY [facility] Last Admin: 01/15/20 09:39 Dose: Not Given Olanzapine (Zyprexa) 5 mg PO BID [facility] Last Admin: 01/15/20 09:40 Dose: Not Given Pantoprazole Sodium (Protonix) 40 mg PO ACBREAKFAST [facility] Last Admin: 01/11/20 05:32 Dose: Not Given Pantoprazole Sodium (Protonix) 40 mg PO ACBREAKFAST [facility] Last Admin: 01/12/20 09:06 Dose: Not Given Pantoprazole Sodium (Protonix) 40 mg PO ACBREAKFAST [facility] Last Admin: 01/15/20 06:39 Dose: Not Given Potassium Chloride (Klor-Con 10) 40 meq PO ONETIME ONE Stop: 01/11/20 10:31 Last Admin: 01/11/20 15:54 Dose: 40 meq Potassium Chloride (Klor-Con 10) 40 meq PO ONETIME ONE Stop: 01/11/20 21:11 Last Admin: 01/12/20 00:11 Dose: Not Given Propranolol HCl (Inderal La) 60 mg PO DAILY [facility] Last Admin: 01/11/20 15:47 Dose: Not Given Propranolol HCl (Inderal La) 60 mg PO DAILY [facility] Last Admin: 01/12/20 13:45 Dose: 60 mg Propranolol HCl (Inderal La) 60 mg PO DAILY [facility] Last Admin: 01/14/20 10:49 Dose: Not Given Temazepam (Restoril) 15 mg PO BEDTIME PRN PRN Reason: Sleep - Exam General: No: Alert, Oriented Cardiovascular: Regular Rate, Regular Rhythm Extremities: No Pedal Edema Skin: Warm Neurological: Other (Not following commands but moving both extremities) Psy/Mental Status: Agitated (Episodically) Sepsis Event Note - Evaluation Sepsis Screening Result: No Definite Risk - Focused Exam Vital Signs: Vital Signs Temp Pulse Resp BP Pulse Ox 01/16/20 09:29 146/79 H 01/16/20 07:58 98.3 F 105 H 20 96 Date Exam was Performed: 01/16/20 Time Exam was Performed: 10:48 - Problem List & Annotations (1) Toxic encephalopathy SNOMED Code(s): 20695781 Code(s): G92 - TOXIC ENCEPHALOPATHY Status: Acute Current Visit: Yes (2) UTI, Urinary tract infectious disease SNOMED Code(s): 79366063 Code(s): N39.0 - URINARY TRACT INFECTION, SITE NOT SPECIFIED Status: Acute Current Visit: No - Problem List Review Problem List Initiated/Reviewed/Updated: Yes - My Orders Last 24 Hours: My Active Orders 01/15/20 12:55 Benzocaine/Docusate Sodium [Enemeez Plus Mini Enema] 1 each RECTAL BID PRN 01/15/20 13:12 Gastrointestinal Tube Mgmt [RC] ASDIRECTED 01/15/20 16:02 Resuscitation Status Routine 01/15/20 16:03 Morphine [Morphine 10 MG/0.5 ML Oral Syringe] 5 mg SL Q4H PRN 01/15/20 16:04 LORazepam [Ativan] 1 mg PO Q4H PRN 01/15/20 21:06 Urinary Catheter Assessment [RC] ASDIRECTED 01/15/20 21:07 LORazepam [Ativan] 1 mg IVPUSH Q4H PRN 01/15/20 21:15 Insert Reyes Catheter [Insert Urinary Catheter] [OM.PC] Q24H - Plan Plan:: 80 yo with h/o dementia, frequent utis, carotid disease presented with confusion 80-year-old presented with confusion, agitation. She was found to have urinary tract infection. CT Of the head showed no acute stroke Acute, toxic metabolic encephalopathy UTI Michael had trauma Hypokalemia Malnutrition Despite treatment of urinary tract infection the patient's mental status did not improve. She was agitated, confused, disoriented. She had no oral intake. Was unable to communicate. Unable to follow commands or get out of bed even with significant help. On 14 January after a family conference the 3 sons decided to change the goals of care to comfort care only Overnight the patient has been receiving Ativan and morphine. It appears that she can be made comfortable with oral crushed Ativan. We'll continue with comfort care measures Plan discharge with hospice To home with family support. Try to monitor her symptom control with Ativan and morphine sublingual The patient will need ambulance for transporting to her home
--- NOTE | 2020-01-16 14:12 | PCM.DCSUM1 ---
Discharge Summary - Hospital Course Free Text/Narrative:: 80 yo with h/o dementia, frequent utis, carotid disease presented with confusion 80-year-old presented with confusion, agitation. She was found to have urinary tract infection. CT Of the head showed no acute stroke Acute, toxic metabolic encephalopathy UTI Michael had trauma Hypokalemia Malnutrition Despite treatment of urinary tract infection the patient's mental status did not improve. She was agitated, confused, disoriented. She had no oral intake. Was unable to communicate. Unable to follow commands or get out of bed even with significant help. On 14 January after a family conference the 3 sons decided to change the goals of care to comfort care only Overnight the patient has been receiving Ativan and morphine. It appears that she can be made comfortable with oral crushed Ativan but still requiring episodic IV med use. Life expectancy is a few days maximum. We'll continue with comfort care measures in a swing care setting. Try to monitor her symptom control with Ativan and morphine sublingual The patient will need ambulance for transporting to her home Diagnosis: Stroke: No - Discharge Data Discharge Date: 01/16/20 Discharge Disposition: DC/Tfer W/I Hosp To Swing Condition: Fair - Referral to Home Health Primary Care Physician: Buzz Gonzalez MD - Discharge Diagnosis/Problem(s) (1) Toxic encephalopathy SNOMED Code(s): 52675546 ICD Code: G92 - TOXIC ENCEPHALOPATHY Status: Acute Current Visit: Yes (2) UTI, Urinary tract infectious disease SNOMED Code(s): 85544855 ICD Code: N39.0 - URINARY TRACT INFECTION, SITE NOT SPECIFIED Status: Acute Current Visit: No - Patient Summary/Data Consults: Consultations 01/12/20 11:15 OT Evaluation and Treatment [CONS] Routine PT Evaluation and Treatment [CONS] Routine 01/16/20 10:51 Consult to Hospice [CONS] Routine - Discharge Plan *PRESCRIPTION DRUG MONITORING PROGRAM REVIEWED*: Not Applicable *COPY OF PRESCRIPTION DRUG MONITORING REPORT IN PATIENT JUD: Not Applicable Home Medications: Home Meds Alendronate Sodium [Alendronate] 70 mg PO ASDIRECTED 07/05/14 [History] Clopidogrel Bisulfate [Clopidogrel] 75 mg PO DAILY 07/05/14 [History] Calcium Citrate/Vitamin D3 [Calcium Citrate + D] 1 tab PO DAILY 04/10/15 [ History] Multivitamin with Minerals [Multiple Vitamin] 1 tab PO DAILY 04/10/15 [History] Pantoprazole [ProTONIX] 40 mg PO DAILY 04/10/15 [History] Propranolol HCl [Propranolol] 1 cap PO DAILY 01/22/18 [History] Aspirin [Halfprin] 81 mg PO DAILY 01/11/20 [History] Oxygen Therapy Mode: Nasal Cannula - Discharge Summary/Plan Comment DC Time >30 min.: No - General Info Date of Service: 01/16/20 Subjective Update: 80-year-old presented with confusion, agitation. She was found to have urinary tract infection. CT Of the head showed no acute stroke Despite treatment of urinary tract infection the patient's mental status did not improve. She was agitated, confused, disoriented. On 14 January after a family conference the 3 sons decided to change the goals of care to comfort care only Overnight the patient has been receiving Ativan and morphine. It appears that she can be made comfortable with oral crushed Ativan. Review of system and history is limited due to patient's inability to give complete answers. Functional Status: Reports: Pain Controlled. Denies: Tolerating Diet - Patient Data Vitals - Most Recent: Last Vital Signs Temp 98.3 F 01/16/20 07:58 Pulse 105 H 01/16/20 07:58 Resp 20 01/16/20 07:58 BP 146/79 H 01/16/20 09:29 Pulse Ox 96 01/16/20 07:58 Weight - Most Recent: 121 lb 9.6 oz I&O - Last 24 hours: Intake & Output 01/15/20 01/16/20 01/16/20 22:59 06:59 14:59 Intake Total 0 Output Total 160 Balance -160 KYLIE Results - Last 24 hrs: Microbiology 01/11/20 01:57 Aerobic Blood Culture - Final Blood NO GROWTH AFTER 5 DAYS Anaerobic Blood Culture - Final NO GROWTH AFTER 5 DAYS Med Orders - Current: Current Medications Acetaminophen (Tylenol) 650 mg PO Q4H PRN PRN Reason: Pain (Mild 1-3)/fever Last Admin: 01/13/20 10:07 Dose: 650 mg Acetaminophen (Tylenol) 650 mg RECTAL Q6H PRN PRN Reason: Pain or Fever Last Admin: 01/14/20 14:59 Dose: 650 mg Docusate Sodium (Colace) 100 mg PO BID PRN PRN Reason: Constipation Docusate Sodium/Benzocaine (Enemeez Plus Mini Enema) 1 each RECTAL BID PRN PRN Reason: Constipation Last Admin: 01/15/20 21:29 Dose: 1 each Lorazepam (Ativan) 1 mg PO Q4H PRN PRN Reason: anxiety, agitation, discomfort Lorazepam (Ativan) 1 mg IVPUSH Q4H PRN PRN Reason: comfort Last Admin: 01/16/20 14:07 Dose: 1 mg Morphine Sulfate (Morphine 10 Mg/0.5 Ml Oral Syringe) 5 mg SL Q4H PRN PRN Reason: Pain Last Admin: 01/16/20 14:07 Dose: 5 mg Olanzapine (Zyprexa) 5 mg IM Q6H PRN PRN Reason: agitation, anxiety Last Admin: 01/14/20 05:05 Dose: 5 mg Ondansetron HCl (Zofran Odt) 4 mg PO Q4H PRN PRN Reason: nausea, able to take PO Ondansetron HCl (Zofran) 4 mg IVPUSH Q4H PRN PRN Reason: Nausea/Vomiting Sodium Chloride (Saline Flush) 10 ml FLUSH ASDIRECTED PRN PRN Reason: Keep Vein Open Discontinued Medications Aspirin (Aspirin) 81 mg PO DAILY [facility] Last Admin: 01/11/20 15:47 Dose: Not Given Aspirin (Halfprin) 81 mg PO DAILY [facility] Last Admin: 01/12/20 13:43 Dose: 81 mg Aspirin (Halfprin) 81 mg PO DAILY [facility] Last Admin: 01/15/20 09:39 Dose: Not Given Clopidogrel Bisulfate (Plavix) 75 mg PO DAILY [facility] Last Admin: 01/11/20 15:47 Dose: Not Given Clopidogrel Bisulfate (Plavix) 75 mg PO DAILY [facility] Last Admin: 01/12/20 13:44 Dose: 75 mg Clopidogrel Bisulfate (Plavix) 75 mg PO DAILY [facility] Last Admin: 01/15/20 09:39 Dose: Not Given Ceftriaxone Sodium 1 gm/ (Lidocaine HCl 2.1 ml) 0 gm IM ONETIME ONE Stop: 01/11/20 02:47 Last Admin: 01/11/20 02:51 Dose: 1 inj Ceftriaxone Sodium 1 gm/ (Lidocaine HCl 2.1 ml) 0 gm IM Q24H [facility] Last Admin: 01/11/20 18:17 Dose: 1 inj Heparin Sodium (Porcine) (Heparin Sodium) 5,000 units SUBCUT Q8HR [facility] Last Admin: 01/15/20 16:03 Dose: Not Given Sterile Water (Sterile Water For Injection) Confirm Administered Dose 20 mls @ as directed .ROUTE .STK-MED ONE Stop: 01/11/20 13:31 Last Admin: 01/11/20 15:41 Dose: 2.1 mls/hr Ceftriaxone Sodium 1 gm/ (Sodium Chloride) 50 mls @ 100 mls/hr IV Q24H [facility] Last Admin: 01/15/20 12:03 Dose: 100 mls/hr Ceftriaxone Sodium 2 gm/ (Sodium Chloride) 100 mls @ 200 mls/hr IV Q24H [facility] Last Admin: 01/13/20 12:34 Dose: Not Given Dextrose/Sodium Chloride (Dextrose 5%-Normal Saline) 1,000 mls @ 40 mls/hr IV ASDIRECTED [facility] Last Admin: 01/15/20 13:11 Dose: 40 mls/hr Iopamidol (Isovue-300 (61%)) 50 ml IVPUSH ONETIME ONE Stop: 01/12/20 12:44 Last Admin: 01/12/20 15:01 Dose: 50 ml Lorazepam (Ativan) 1 mg IM Q6H PRN PRN Reason: Agitation Last Admin: 01/13/20 10:06 Dose: 1 mg Lorazepam (Ativan) 1 mg IVPUSH Q6H PRN PRN Reason: Agitation Last Admin: 01/15/20 16:21 Dose: 1 mg Lorazepam (Ativan) 1 mg PO Q4H PRN PRN Reason: Agitation Metoprolol Tartrate (Lopressor) 5 mg IVPUSH Q8HR [facility] Last Admin: 01/15/20 16:03 Dose: Not Given Multivitamins/Minerals (Vitamins And Minerals) 1 tab PO DAILY [facility] Last Admin: 01/15/20 09:39 Dose: Not Given Olanzapine (Zyprexa) 5 mg PO BID [facility] Last Admin: 01/15/20 09:40 Dose: Not Given Pantoprazole Sodium (Protonix) 40 mg PO ACBREAKFAST [facility] Last Admin: 01/11/20 05:32 Dose: Not Given Pantoprazole Sodium (Protonix) 40 mg PO ACBREAKFAST [facility] Last Admin: 01/12/20 09:06 Dose: Not Given Pantoprazole Sodium (Protonix) 40 mg PO ACBREAKFAST [facility] Last Admin: 01/15/20 06:39 Dose: Not Given Potassium Chloride (Klor-Con 10) 40 meq PO ONETIME ONE Stop: 01/11/20 10:31 Last Admin: 01/11/20 15:54 Dose: 40 meq Potassium Chloride (Klor-Con 10) 40 meq PO ONETIME ONE Stop: 01/11/20 21:11 Last Admin: 01/12/20 00:11 Dose: Not Given Propranolol HCl (Inderal La) 60 mg PO DAILY [facility] Last Admin: 01/11/20 15:47 Dose: Not Given Propranolol HCl (Inderal La) 60 mg PO DAILY [facility] Last Admin: 01/12/20 13:45 Dose: 60 mg Propranolol HCl (Inderal La) 60 mg PO DAILY [facility] Last Admin: 01/14/20 10:49 Dose: Not Given Temazepam (Restoril) 15 mg PO BEDTIME PRN PRN Reason: Sleep - Exam Quality Assessment: Reports: Supplemental Oxygen General: Denies: Alert, Oriented Lungs: Reports: Normal Respiratory Effort Cardiovascular: Reports: Regular Rhythm Extremities: No Pedal Edema Neurological: Reports: Other (lethargic mostly with episodes of agitation, discomfort)
== END 2020-01-16 15:03 | disposition swing bed (61) | DRG 689 ==
LOC: DL.ED 02:00 → DL.MS 02:49 → OBSVTOIN 01-12 11:36
PROVIDERS: ADMIT Internal Medicine; ATTEND Internal Medicine
DX: N30.01 Acute cystitis with hematuria (principal); N39.0 Urinary tract infection, site not specified; Z87.440 Personal history of urinary (tract) infections; G92 Toxic encephalopathy; R45.1 Restlessness and agitation; E87.2 Acidosis; E46 Unspecified protein-calorie malnutrition; Z91.81 History of falling; B96.20 Unspecified Escherichia coli [E. coli] as the cause of diseases classified elsewhere; Z88.6 Allergy status to analgesic agent; I73.9 Peripheral vascular disease, unspecified; E87.6 Hypokalemia; Z79.02 Long term (current) use of antithrombotics/antiplatelets; Z51.5 Encounter for palliative care; Z79.899 Other long term (current) drug therapy; H91.90 Unspecified hearing loss, unspecified ear; H54.7 Unspecified visual loss; I25.10 Atherosclerotic heart disease of native coronary artery without angina pectoris; K21.9 Gastro-esophageal reflux disease without esophagitis; K59.09 Other constipation; F03.90 Unspecified dementia, unspecified severity, without behavioral disturbance, psychotic disturbance, mood disturbance, and anxiety; Z28.82 Immunization not carried out because of caregiver refusal; Z88.1 Allergy status to other antibiotic agents; Z88.5 Allergy status to narcotic agent; Z88.2 Allergy status to sulfonamides; Z79.82 Long term (current) use of aspirin
CPT/HCPCS: 36415 ×2; 80048 ×2; 80053; 81001; 83605 ×2; 84484; 85025 ×3; 87040; 87086; 87088; 87186; 96372 ×2; 99284; 99285; A9270 ×8; G0378 ×2; J0696 ×2; J2001 ×2; J3490 ×2; 51702; 70470; 96374; 97162-GP; 97166-GO; J2060; J7042; J7050; Q9967

== ENCOUNTER 2020-01-16 14:10 | Inpatient (IN) | payer MEDICARE, OTHER ==
[2020-01-16] MEDS ORDERED: Ondansetron 4 MG Tab.DIS PO PRN (15:10)
[2020-01-16] MEDS ORDERED: LORazepam 1 MG Tab PO PRN (15:10)
[2020-01-16] MEDS ORDERED: Morphine 10 MG/0.5 ML Oral Syringe SL PRN (15:10)
[2020-01-16] MEDS ORDERED: Docusate Sodium 100 MG Cap PO PRN (15:10)
[2020-01-16] MEDS ORDERED: Sodium Chloride 0.9% 10 ML Syringe FLUSH PRN (15:10)
[2020-01-16] MEDS ORDERED: Acetaminophen 325 MG Tab PO PRN (15:10)
[2020-01-16] MEDS ORDERED: Ondansetron 4 MG/2 ML SDV IVPUSH PRN (15:10)
[2020-01-16] MEDS ORDERED: Benzocaine/Docusate Sodium 20-283 MG/5 ML Enema RECTAL PRN (15:10)
[2020-01-16] MEDS ORDERED: OLANZapine 10 MG Vial IM PRN (15:10)
--- NOTE | 2020-01-16 15:16 | PCM.HP ---
H&P History of Present Illness - General Date of Service: 01/16/20 Admit Problem/Dx: Admission Diagnosis/Problem Admission Diagnosis/Problem Encephalopathy Source of Information: Other (nursing, family) - History of Present Illness Initial Comments - Free Text/Narative: 80 yo with h/o dementia, frequent utis, carotid disease presented with confusion 80-year-old presented with confusion, agitation. She was found to have urinary tract infection. CT Of the head showed no acute stroke Acute, toxic metabolic encephalopathy UTI Hypokalemia Malnutrition Despite treatment of urinary tract infection the patient's mental status did not improve. She was agitated, confused, disoriented. She had no oral intake. Was unable to communicate. Unable to follow commands or get out of bed even with significant help. On 14 January after a family conference the 3 sons decided to change the goals of care to comfort care only - Related Data Allergies/Adverse Reactions: Allergies Allergy/AdvReac Type Severity Reaction Status Date / Time ciprofloxacin Allergy Cannot Verified 01/16/20 14:17 Remember hydrocodone Allergy Dizziness Verified 01/16/20 14:17 sulfamethizole Allergy Rash Verified 01/16/20 14:17 sulfamethoxazole Allergy Itching Verified 01/16/20 14:17 [From Bactrim] trimethoprim [From Bactrim] Allergy Itching Verified 01/16/20 14:17 Home Medications: Home Meds Alendronate Sodium [Alendronate] 70 mg PO ASDIRECTED 07/05/14 [History] Clopidogrel Bisulfate [Clopidogrel] 75 mg PO DAILY 07/05/14 [History] Calcium Citrate/Vitamin D3 [Calcium Citrate + D] 1 tab PO DAILY 04/10/15 [ History] Multivitamin with Minerals [Multiple Vitamin] 1 tab PO DAILY 04/10/15 [History] Pantoprazole [ProTONIX] 40 mg PO DAILY 04/10/15 [History] Propranolol HCl [Propranolol] 1 cap PO DAILY 01/22/18 [History] Aspirin [Halfprin] 81 mg PO DAILY 01/11/20 [History] Past Medical History HEENT History: Reports: Hard of Hearing, Impaired Vision, Other (See Below) Other HEENT History: wear glasses Cardiovascular History: Reports: CAD Other Cardiovascular History: carotid artery disease Respiratory History: Reports: None Gastrointestinal History: Reports: Chronic Constipation, GERD Genitourinary History: Reports: UTI, Recurrent STRAW BALER History: Reports: None Musculoskeletal History: Reports: Other (See Below) Other Musculoskeletal History: Right shoulder pain Neurological History: Reports: Concussion Psychiatric History: Reports: Dementia Endocrine/Metabolic History: Reports: None Hematologic History: Reports: None Immunologic History: Reports: None Oncologic (Cancer) History: Reports: None Dermatologic History: Reports: None - Infectious Disease History Infectious Disease History: Reports: Measles - Past Surgical History Cardiovascular Surgical History: Reports: None GI Surgical History: Reports: None Neurological Surgical History: Reports: None Musculoskeletal Surgical History: Reports: None Social & Family History - Family History Family Medical History: Noncontributory - Tobacco Use Smoking Status *Q: Never Smoker Second Hand Smoke Exposure: No - Caffeine Use Caffeine Use: Reports: None - Recreational Drug Use Recreational Drug Use: No - Living Situation & Occupation Living situation: Reports: with Family Occupation: Retired H&P Review of Systems - Review of Systems: Review Of Systems: Unable To Obtain Reason Not Obtained: non verbal Free Text/Narrative: limited info since pt is non verbal General: Reports: Weakness. Denies: Fever Pulmonary: Denies: Shortness of Breath Cardiovascular: Denies: Chest Pain Exam - Exam Exam: See Below - Exam Quality Assessment: Supplemental Oxygen General: Lethargic Lungs: Normal Respiratory Effort Cardiovascular: Regular Rate, Regular Rhythm, Diastolic Murmur GI/Abdominal Exam: Soft, Non-Tender Extremities: No Pedal Edema - Problem List (1) Altered mental status SNOMED Code(s): 756442294 ICD Code: R41.82 - ALTERED MENTAL STATUS, UNSPECIFIED Status: Acute (2) Dementia SNOMED Code(s): 87146764 ICD Code: F03.90 - UNSPECIFIED DEMENTIA WITHOUT BEHAVIORAL DISTURBANCE Status: Acute (3) UTI (urinary tract infection) SNOMED Code(s): 18734383 ICD Code: N39.0 - URINARY TRACT INFECTION, SITE NOT SPECIFIED Status: Acute Problem List Initiated/Reviewed/Updated: Yes Orders Last 24hrs: Active Orders 24 hr Category Date Time Status Patient Status [ADT] Routine ADT 01/16/20 15:11 Active Insert Reyes Catheter [Insert Urinary Catheter] [OM.PC] Care 01/16/20 15:10 Ordered Q24H Oxygen Therapy [RC] PRN Care 01/16/20 15:11 Active Up With Assistance [RC] ASDIRECTED Care 01/16/20 15:10 Active Urinary Catheter Assessment [RC] ASDIRECTED Care 01/16/20 15:10 Active Urinary Catheter Assessment [RC] ASDIRECTED Care 01/16/20 15:10 Active VTE/DVT Education [RC] PER UNIT ROUTINE Care 01/16/20 15:11 Active Vital Signs [RC] Q8H Care 01/16/20 15:11 Active Regular Diet [DIET] Diet 01/16/20 Breakfast Active Acetaminophen [Tylenol] Med 01/16/20 15:10 Ordered 650 mg PO Q4H PRN Acetaminophen [Tylenol] Med 01/16/20 15:10 Ordered 650 mg RECTAL Q6H PRN Benzocaine/Docusate Sodium [Enemeez Plus Mini Enema] Med 01/16/20 15:10 Ordered 1 each RECTAL BID PRN Docusate Sodium [Colace] Med 01/16/20 15:10 Ordered 100 mg PO BID PRN LORazepam [Ativan] Med 01/16/20 15:10 Ordered 1 mg IVPUSH Q4H PRN LORazepam [Ativan] Med 01/16/20 15:10 Ordered 1 mg PO Q4H PRN Morphine [Morphine 10 MG/0.5 ML Oral Syringe] Med 01/16/20 15:10 Ordered 5 mg SL Q4H PRN OLANZapine [ZyPREXA] Med 01/16/20 15:10 Ordered 5 mg IM Q6H PRN Ondansetron [Zofran ODT] Med 01/16/20 15:10 Ordered 4 mg PO Q4H PRN Ondansetron [Zofran] Med 01/16/20 15:10 Ordered 4 mg IVPUSH Q4H PRN Sodium Chloride 0.9% [Saline Flush] Med 01/16/20 15:10 Ordered 10 ml FLUSH ASDIRECTED PRN Sodium Chloride 0.9% [Saline Flush] Med 01/16/20 15:10 Ordered 10 ml FLUSH ASDIRECTED PRN Saline Lock Insert [OM.PC] Routine Oth 01/16/20 15:10 Ordered Resuscitation Status Routine Resus Stat 01/16/20 15:11 Ordered Medication Orders Acetaminophen (Tylenol) 650 mg PO Q4H PRN PRN Reason: Pain (Mild 1-3)/fever Acetaminophen (Tylenol) 650 mg RECTAL Q6H PRN PRN Reason: Pain or Fever Docusate Sodium (Colace) 100 mg PO BID PRN PRN Reason: Constipation Docusate Sodium/Benzocaine (Enemeez Plus Mini Enema) 1 each RECTAL BID PRN PRN Reason: Constipation Lorazepam (Ativan) 1 mg PO Q4H PRN PRN Reason: anxiety, agitation, discomfort Lorazepam (Ativan) 1 mg IVPUSH Q4H PRN PRN Reason: comfort Morphine Sulfate (Morphine 10 Mg/0.5 Ml Oral Syringe) 5 mg SL Q4H PRN PRN Reason: Pain Olanzapine (Zyprexa) 5 mg IM Q6H PRN PRN Reason: agitation, anxiety Ondansetron HCl (Zofran Odt) 4 mg PO Q4H PRN PRN Reason: nausea, able to take PO Ondansetron HCl (Zofran) 4 mg IVPUSH Q4H PRN PRN Reason: Nausea/Vomiting Sodium Chloride (Saline Flush) 10 ml FLUSH ASDIRECTED PRN PRN Reason: Keep Vein Open Sodium Chloride (Saline Flush) 10 ml FLUSH ASDIRECTED PRN PRN Reason: Keep Vein Open Assessment/Plan Comment:: 80 yo with h/o dementia, frequent utis, carotid disease presented with confusion 80-year-old presented with confusion, agitation. She was found to have urinary tract infection. CT Of the head showed no acute stroke Acute, toxic metabolic encephalopathy UTI Michael had trauma Hypokalemia Malnutrition Despite treatment of urinary tract infection the patient's mental status did not improve. She was agitated, confused, disoriented. She had no oral intake. Was unable to communicate. Unable to follow commands or get out of bed even with significant help. On 14 January after a family conference the 3 sons decided to change the goals of care to comfort care only Overnight the patient has been receiving Ativan and morphine. It appears that she can be made comfortable with oral crushed Ativan but still requiring episodic IV med use. Life expectancy is a few days maximum. We'll continue with comfort care measures in a swing care setting.
[2020-01-16] MEDS: Morphine 2 MG/ML SYRINGE IVPUSH PRN ×2 (22:13→23:19)
[2020-01-17] MEDS: Sodium Chloride 0.9% 10 ML Syringe FLUSH PRN ×2 (09:31→12:17)
[2020-01-17] MEDS: LORazepam 2 MG/ML SDV IVPUSH PRN ×3 (09:31→20:35)
[2020-01-17] MEDS: Morphine 2 MG/ML SYRINGE IVPUSH PRN ×6 (12:17→22:26)
[2020-01-18] MEDS: LORazepam 2 MG/ML SDV IVPUSH PRN ×4 (00:33→21:39)
[2020-01-18] MEDS: Morphine 2 MG/ML SYRINGE IVPUSH PRN ×6 (02:01→19:34)
[2020-01-18 07:55] VITALS: BP 125/65; PULSE 86
[2020-01-18] MEDS: Sodium Chloride 0.9% 10 ML Syringe FLUSH PRN (19:33)
[2020-01-19] MEDS: Morphine 2 MG/ML SYRINGE IVPUSH PRN ×9 (00:05→22:32)
[2020-01-19] MEDS: LORazepam 2 MG/ML SDV IVPUSH PRN ×5 (02:20→23:26)
[2020-01-19] MEDS: Sodium Chloride 0.9% 10 ML Syringe FLUSH PRN ×10 (07:23→23:28)
[2020-01-20] MEDS: Sodium Chloride 0.9% 10 ML Syringe FLUSH PRN ×11 (01:40→21:28)
[2020-01-20] MEDS: Morphine 2 MG/ML SYRINGE IVPUSH PRN ×9 (01:41→21:28)
[2020-01-20] MEDS: LORazepam 2 MG/ML SDV IVPUSH PRN ×3 (09:07→19:30)
[2020-01-20] MEDS: Acetaminophen 650 MG Supp RECTAL PRN (12:23)
[2020-01-21] MEDS: LORazepam 2 MG/ML SDV IVPUSH PRN ×4 (00:08→20:43)
[2020-01-21] MEDS: Sodium Chloride 0.9% 10 ML Syringe FLUSH PRN ×10 (00:08→18:55)
[2020-01-21] MEDS: Morphine 2 MG/ML SYRINGE IVPUSH PRN ×9 (01:54→23:59)
[2020-01-21] MEDS: Acetaminophen 650 MG Supp RECTAL PRN ×2 (07:55→20:44)
[2020-01-21] MEDS ORDERED: Atropine 1% Ophth Soln 5 ML BOTTLE SL PRN (10:52)
[2020-01-22] MEDS: LORazepam 2 MG/ML SDV IVPUSH PRN ×2 (02:03→05:56)
[2020-01-22] MEDS: Morphine 2 MG/ML SYRINGE IVPUSH PRN ×2 (03:58→07:58)
--- NOTE | 2020-01-22 12:06 | PCM.DCSUM1 ---
Discharge Summary - Hospital Course Free Text/Narrative:: 80 yo with h/o dementia, frequent utis, carotid disease presented with confusion. She was admitted for acute encephalopathy due to urosepsis. CT Of the head showed no acute stroke. Despite treatment of urinary tract infection the patient's mental status did not improve. She was agitated, confused, disoriented. On 14 January after a family conference the 3 sons decided to change the goals of care to comfort care only. Palliative care was consulted. Patient this morning. Diagnosis: Stroke: No - Discharge Data Discharge Date: 01/22/20 Discharge Disposition: 20 Preliminary Cause of *Q: Cardiac Arrest (due to sepsis) Condition: - Referral to Home Health Primary Care Physician: Buzz Gonzalez MD - Discharge Plan *PRESCRIPTION DRUG MONITORING PROGRAM REVIEWED*: Not Applicable *COPY OF PRESCRIPTION DRUG MONITORING REPORT IN PATIENT JUD: Not Applicable Referrals: Buzz Gonzalez MD [Primary Care Provider] - - Discharge Summary/Plan Comment DC Time >30 min.: Yes - General Info Admission Dx/Problem (Free Text: Admission Diagnosis/Problem Admission Diagnosis/Problem Encephalopathy due to urosepsis Functional Status: Reports: Pain Controlled - Review of Systems General: Reports: No Symptoms HEENT: Reports: No Symptoms Pulmonary: Reports: No Symptoms Cardiovascular: Reports: No Symptoms Gastrointestinal: Reports: No Symptoms Genitourinary: Reports: No Symptoms Musculoskeletal: Reports: No Symptoms Skin: Reports: No Symptoms Neurological: Reports: No Symptoms Psychiatric: Reports: No Symptoms - Patient Data Vitals - Most Recent: Last Vital Signs Temp 99.3 F 01/22/20 08:15 Pulse 86 01/18/20 07:54 Resp 24 H 01/22/20 08:15 BP 125/65 01/18/20 07:54 Pulse Ox 97 01/18/20 07:54 Weight - Most Recent: 114 lb 11.2 oz I&O - Last 24 hours: Intake & Output 01/21/20 01/22/20 01/22/20 22:59 06:59 14:59 Output Total 25 Balance -25 Med Orders - Current: Current Medications Acetaminophen (Tylenol) 650 mg PO Q4H PRN PRN Reason: Pain (Mild 1-3)/fever Acetaminophen (Tylenol) 650 mg RECTAL Q6H PRN PRN Reason: Pain (1-3)/Fever Last Admin: 01/21/20 20:44 Dose: 650 mg Atropine Sulfate (Atropine 1% Ophth Soln) 0 ml SL Q2H PRN PRN Reason: Other Docusate Sodium (Colace) 100 mg PO BID PRN PRN Reason: Constipation Docusate Sodium/Benzocaine (Enemeez Plus Mini Enema) 1 each RECTAL BID PRN PRN Reason: Constipation Lorazepam (Ativan) 1 mg PO Q4H PRN PRN Reason: anxiety, agitation, discomfort Lorazepam (Ativan) 1 mg IVPUSH Q4H PRN PRN Reason: comfort Last Admin: 01/22/20 05:56 Dose: 1 mg Morphine Sulfate (Morphine) 2 mg IVPUSH Q2H PRN PRN Reason: Comfort cares pain Last Admin: 01/22/20 07:58 Dose: 2 mg Olanzapine (Zyprexa) 5 mg IM Q6H PRN PRN Reason: agitation, anxiety Ondansetron HCl (Zofran Odt) 4 mg PO Q4H PRN PRN Reason: nausea, able to take PO Ondansetron HCl (Zofran) 4 mg IVPUSH Q4H PRN PRN Reason: Nausea/Vomiting Sodium Chloride (Saline Flush) 10 ml FLUSH ASDIRECTED PRN PRN Reason: Keep Vein Open Last Admin: 01/21/20 18:55 Dose: 10 ml Discontinued Medications Morphine Sulfate (Morphine 10 Mg/0.5 Ml Oral Syringe) 5 mg SL Q4HR PRN PRN Reason: Pain (severe 7-10) Morphine Sulfate (Morphine) 1 mg IVPUSH Q2H PRN PRN Reason: severe or moderate pain Last Admin: 01/16/20 23:19 Dose: 1 mg Morphine Sulfate (Morphine) 1 mg IVPUSH Q1H PRN PRN Reason: severe or moderate pain Last Admin: 01/19/20 09:35 Dose: 1 mg - Exam General: Reports: Alert, Oriented HEENT: Reports: Pupils Equal, Pupils Reactive, EOMI, Mucous Membr. Moist/[place] Neck: Reports: Supple Lungs: Reports: Clear to Auscultation, Normal Respiratory Effort Cardiovascular: Reports: Regular Rate, Regular Rhythm GI/Abdominal Exam: Normal Bowel Sounds, Soft, Non-Tender, No Organomegaly, No Distention, No Abnormal Bruit, No Mass, Pelvis Stable (Female) Exam: Normal External Exam, Normal Speculum Exam, Normal Bimanual Exam Rectal (Female) Exam: Normal Exam, Normal Rectal Tone Back Exam: Reports: Normal Inspection, Full Range of Motion Extremities: Normal Inspection, Normal Range of Motion, Non-Tender, No Pedal Edema, Normal Capillary Refill Skin: Reports: Warm, Dry, Intact Wound/Incisions: Reports: Healing Well Neurological: Reports: No New Focal Deficit Psy/Mental Status: Reports: Alert, Normal Affect, Normal Mood
== END 2020-01-22 12:50 | disposition expired | DRG 689 ==
LOC: DL.MS 15:11
PROVIDERS: ADMIT Internal Medicine; ATTEND Student in an Organized Health Care Education/Training Program
DX: N39.0 Urinary tract infection, site not specified (principal); G92 Toxic encephalopathy; I46.8 Cardiac arrest due to other underlying condition; E87.6 Hypokalemia; I25.10 Atherosclerotic heart disease of native coronary artery without angina pectoris; K59.09 Other constipation; K21.9 Gastro-esophageal reflux disease without esophagitis; F03.90 Unspecified dementia, unspecified severity, without behavioral disturbance, psychotic disturbance, mood disturbance, and anxiety
CPT/HCPCS: 51701; 51702; 51703; A9270-GY; J2060; J2270